=== PATIENT | female | born 1980 ===

== ENCOUNTER 2021-12-03 08:29 | Inpatient (IN) | payer SELFPAY ==
--- NOTE | 2021-12-03 08:40 | Emergency Department Report ---
ED Shortness of Breath HPI - General Chief Complaint: Dyspnea/Respdistress Stated Complaint: DIFFICULTY BREATHING Time Seen by Provider: 12/03/21 08:39 Source: patient, EMS Mode of arrival: Stretcher Limitations: No Limitations - History of Present Illness Initial Comments: Patient presents by ambulance secondary to shortness of breath. She has a histo ry of asthma. She states that yesterday and last night she started having trouble breathing. It worsened throughout the night. She called EMS this morning. EMS reports the patient was tachycardic and tachypneic when they were present. She was wheezing with rhonchi in both lung dsouza. She was given albuterol 7.5 mg by nebulizer. They report that she had improved although she was still tachypneic. They report that her lungs had cleared. Patient does have asthma. She has been admitted before. She states that she was intubated "a long time ago." Patient denies recent fevers. She has had a dry cough. She has had no known coronavirus exposure, although she is not vaccinated against COVID. She did not get a flu shot. She has not had a pneumonia shot. - Related Data Allergies Allergy/AdvReac Type Severity Reaction Status Date / Time codeine Allergy Unknown Verified 12/03/21 08:36 peach Allergy Unknown Verified 12/03/21 08:36 ED Review of Systems ROS: Stated complaint: DIFFICULTY BREATHING Other details as noted in HPI Comment: All other systems reviewed and negative Constitutional: denies: fever Eyes: denies: vision change ENT: denies: epistaxis Respiratory: see HPI Cardiovascular: denies: chest pain Endocrine: denies: unexplained weight loss Gastrointestinal: denies: abdominal pain Genitourinary: denies: dysuria Musculoskeletal: denies: back pain Skin: denies: rash Neurological: denies: headache Hematological/Lymphatic: denies: easy bruising ED Past Medical Hx - Past Medical History Previous Medical History?: Yes Hx Hypertension: Yes Hx CVA: Yes Hx Congestive Heart Failure: Yes Hx Asthma: Yes - Family History Family history: asthma, hypertension - Social History Substance Use Type: Cocaine (Per EMS) ED Physical Exam - General Limitations: No Limitations, Other (Pulse ox noted and normal) General appearance: alert, in distress (Hyperventilating) - Head Head exam: Present: atraumatic, normocephalic - Eye Eye exam: Present: normal appearance, EOMI. Absent: scleral icterus - ENT ENT exam: Present: mucous membranes dry, normal external ear exam - Neck Neck exam: Present: normal inspection. Absent: meningismus - Respiratory Respiratory exam: Present: respiratory distress (Hyperventilating), rhonchi (Bilateral) - Cardiovascular Cardiovascular Exam: Present: normal rhythm, tachycardia - GI/Abdominal GI/Abdominal exam: Present: soft. Absent: distended, tenderness - Extremities Exam Extremities exam: Present: normal capillary refill. Absent: pedal edema, calf tenderness - Back Exam Back exam: Absent: CVA tenderness (R), CVA tenderness (L) - Neurological Exam Neurological exam: Present: alert, oriented X3, CN II-XII intact. Absent: motor sensory deficit - Psychiatric Psychiatric exam: Present: normal mood, anxious - Skin Skin exam: Present: warm, dry ED Course Vital Signs 12/03/21 12/03/21 12/03/21 08:31 09:00 09:01 Temperature 98.1 F 97.6 F Pulse Rate 105 H 95 H Respiratory 20 20 34 H Rate Blood Pressure 244/169 239/159 [Left] O2 Sat by Pulse 97 98 95 Oximetry 12/03/21 11:32 Temperature Pulse Rate Respiratory 34 H Rate Blood Pressure [Left] O2 Sat by Pulse Oximetry - Reevaluation(s) Reevaluation #1: 12/03/21 08:39 EMS was met upon arrival. IV, labs, and x-ray were ordered. Old records noted. Reevaluation #2: 12/03/21 09:31 Chest x-ray was noted. Patient likely has coronavirus. Further testing was ordered. Reevaluation #3: 12/03/21 10:41 Patient was weaned down to 3 L and is still maintaining her saturations at 94%. Her blood pressure is elevated even when supine. Labetalol has been ordered. Labs are still pending. Reevaluation #4: 12/03/21 11:22 IV still cannot be established. Patient is agitated and cannot sit still. We cannot establish IV because the patient keeps moving. She had been sedated with Geodon which temporarily worked, but was not effective enough to prevent her movement. Ketamine IM has been given so that we could sedate her better, keep her still, and work on IV access. Reevaluation #5: 12/03/21 14:01 Patient was ultimately admitted. She was altered and not protecting her airway so she was electively intubated. Due to the profound hypertension with concerns for hypertensive encephalopathy, hypertensive emergency and heart failure, and requiring sedation, she had a central line placed. Bottle Capping Machine Operator was consulted - Central Line Placement Right Femoral Consent Obtained: emergent situation Time Out Performed: Yes Patient Placed on Monitor/Pulse Ox: Yes MD Prep: mask, gown, gloves Central Line Prep: Chlorhexidine scrub, sterile drapes applied Ultrasound Used for Placement: No Central Line Lumen Inserted: triple Reason for Insertion: High Alert Medication Bloods Obtained for Lab: No Central Line Position: good blood return, all ports aspirated, flus, sutured in place with 2-0 Dressing Applied: Tegaderm Post Procedure X-Ray: other (Not indicated) Patient Tolerated Procedure: well, no complications Complications: none - Intubation Time Out Performed: Yes Sedative: Versed Paralytic: Succinylcholine Laryngoscope: Andree Size: 4 ET Tube Size: 7.5 Tube Secured Depth (cm): 22 Tube Secured Location: lips Tube Placement Confirmation: visualized tube passing t, equal breath sounds bilat, no breath sounds over epi, confirmation by capnometr Patient Tolerated Procedure: well, no complications Intubation Complications: none ED Medical Decision Making - Lab Data Result diagrams: 12/03/21 09:49 12/03/21 09:49 Rhythm strip: Normal sinus rhythm without ectopy per monitor observe 10 seconds. - Radiology Data Radiology results: report reviewed - Medical Decision Making Patient presents with difficulty breathing, asthma, and cough. There was initial concern that she could have coronavirus given her x-ray findings. Over time, she declared herself to have evidence of hypertensive encephalopathy and hypertensive emergency. She was found to have pulmonary edema with altered mental status and significantly elevated blood pressures. She was given labetalol and then placed on a Cardene drip. Central line was placed. Because the patient had become altered, hypoxic, and could not protect her airway, she was electively intubated. Patient was admitted to the intensive care unit on a Cardene drip with continued management planned. Diuresis has been ordered. Critical Care Time: Yes (55 minutes exclusive of all procedures) Critical care attestation.: If time is entered above; I have spent that time in minutes in the direct care of this critically ill patient, excluding procedure time. ED Disposition Clinical Impression: Shortness of breath, Suspected COVID-19 virus infection, LILIYA (acute kidney i njury), Hypertensive encephalopathy, Hypertensive emergency Bilateral pneumonia Qualifiers: Pneumonia type: due to unspecified organism Lung location: lower lobe of lung Qualified Code(s): J18.9 - Pneumonia, unspecified organism Pulmonary edema Qualifiers: Chronicity: acute Qualified Code(s): J81.0 - Acute pulmonary edema Disposition: 09 ADMITTED INPATIENT Is pt being admited?: Yes Condition: Stable
[2021-12-03] MEDS ORDERED: SODIUM CHLORIDE 0.9% 1000 ML 1,000 ML IV ONE (08:41)
[2021-12-03] MEDS ORDERED: IPRATROPIUM/ALBUTEROL SULFATE 3 ML AMPUL.NEB IH ONE (08:42)
--- NOTE | 2021-12-03 09:16 | XRay Report ---
CHEST 1 VIEW 12/03/2021 8:11 AM INDICATION / CLINICAL INFORMATION: dyspnea. COMPARISON: None available. FINDINGS: SUPPORT DEVICES: None. HEART / MEDIASTINUM: No significant abnormality. LUNGS / PLEURA: Mild diffuse bilateral airspace disease No pneumothorax. ADDITIONAL FINDINGS: No significant additional findings. IMPRESSION: 1. Bilateral pneumonia Signer Name: Dusty Lino MD Signed: 12/03/2021 9:12 AM Workstation Name: [id number]
[2021-12-03] MEDS ORDERED: methylPREDNISolone Sod Suc 125 MG in SODIUM CHLORIDE 0.9% 100 ML IV ONE (09:30)
[2021-12-03] MEDS ORDERED: ZIPRASIDONE MESYLATE 20 MG VIAL IM ONE (09:50)
[2021-12-03 10:24] LABS: Calcium 9.3 mg/dL (8.4-10.2)
[2021-12-03 10:28] LABS: C-Reactive Protein 0.3 mg/dL (0.00-1.30)
[2021-12-03 10:32] LABS: Mean Corpuscular HGB Conc 30 % (30-34); Mean Corpuscular Volume 79 fl (79-97); Platelet Count 270 K/mm3 (140-440); Red Cell Distribution Width 18.3 % (13.2-15.2)
[2021-12-03 10:54] LABS: Hematocrit 42.6 % (30.3-42.9); Hemoglobin 12.7 gm/dl (10.1-14.3)
[2021-12-03] MEDS ORDERED: cefTRIAXone/NS 2 GM/100 ML 2 GM/100 ML BAG IV ONE (11:25)
[2021-12-03] MEDS ORDERED: SODIUM CHLORIDE 0.9% 1000 ML IV SOLN IV ONE (11:25)
[2021-12-03] MEDS ORDERED: AZITHROMYCIN/NS 500 MG/250 ML 500 MG/250 ML BAG IV ONE (12:00)
[2021-12-03] MEDS ORDERED: KETAMINE 500 MG/5 ML VIAL MDV IM ONE (12:00)
[2021-12-03 12:17] LABS: Basophils % (Manual) 0 % (0.0-1.8); Eosinophils % (Manual) 0 % (0.0-4.3); Hypochromasia 1+; Monocytes % (Manual) 0 % (0.0-7.3); Total Cells Counted 100
[2021-12-03 12:18] LABS: Platelet Estimate Consistent w Auto
[2021-12-03] MEDS ORDERED: ETOMIDATE 20 MG/10 ML INJ IV ONE ×3 (12:40→14:25)
[2021-12-03] MEDS ORDERED: SUCCINYLCHOLINE CHLORIDE 200 MG/10 ML INJ MDV ONE (12:41)
[2021-12-03] MEDS ORDERED: MIDAZOLAM 5 MG/5 ML INJ MDV IV ONE (12:41)
[2021-12-03 12:53] LABS: Amphetamine Screen,Urine Negative; Benzodiazepines Screen,Urine Negative; Cannabinoid Screen,Urine Negative; Methadone Screen,Urine Negative; Opiate Screen,Urine Negative
[2021-12-03] MEDS ORDERED: FUROSEMIDE 100 MG/10 ML INJ IV ONE (13:03)
--- NOTE | 2021-12-03 13:10 | History and Physical Report ---
History of Present Illness Chief complaint: I cant breathe History of present illness: 40 YO Female with Mild Intermittent Asthma, HTN, CVA, CHF, Cocaine Dependence presents to ED for evaluation. Patient reports "I cannot breathe". Patient states that she had experienced shortness of breath over the past several days with worsening symptoms over the same timeframe. EMS was notified and upon arrival the patient was found to be in respiratory distress. Patient was treated with nebulizer therapy and subsequently transported to [facility] for further care and evaluation of the aforementioned symptoms. The patient was seen and evaluated in the emergency department. All lab and imaging studies reviewed. The patient was found to be using accessory muscles to breathe, tripoding, and unable to speak in complete sentences. The patient was found to have a pulse oximetry of 88% on room air with exertion which is consistent with acute hypoxemic respiratory failure. Patient did not respond to bronchodilator therapy and was subsequently intubated and placed on ventilatory support. Chest x-ray revealed bilateral pneumonia complicated by sepsis, acute kidney injury, hypertensive emergency. Patient admitted to ICU and initiated on sepsis protocol, pneumonia protocol, as well as coronavirus protocol. No further history is obtainable. No reports of fever, chills, chest pain, palpitation, productive cough, skin rash, recent contact. Patient is not vaccinated against COVID-19. No prior admission for review. No medication listed at time of admission for reconciliation. Advanced care planning conducted in ED. Past History Past Medical History: heart failure, hypertension, stroke Past Surgical History: No surgical history, Other (Reviewed) Social history: single, smoking, other (Substance abuse) Family history: diabetes, hypertension Medications and Allergies Allergies Allergy/AdvReac Type Severity Reaction Status Date / Time codeine Allergy Unknown Verified 12/03/21 08:36 peach Allergy Unknown Verified 12/03/21 08:36 Review of Systems ROS unobtainable: due to endotracheal tube, due to mental status Exam - Constitutional Vitals: Temp Pulse Resp BP Pulse Ox 97.6 F 95 H 34 H 239/159 95 12/03/21 09:00 12/03/21 09:00 12/03/21 11:32 12/03/21 09:00 12/03/21 09:01 General appearance: Present: severe distress - EENT Eyes: Present: miosis ENT: hearing decreased - Neck Neck: Present: supple, normal ROM - Respiratory Respiratory effort: labored, pursed lips, accessory muscle use, stridor Respiratory: bilateral: diminished, rhonchi - Cardiovascular Rhythm: other (Tachycardia) Heart Sounds: Present: S1 & S2. Absent: rub, click - Extremities Extremities: pulses symmetrical, No edema Peripheral Pulses: abnormal (Capillary refill greater than 3.5 seconds) - Abdominal General gastrointestinal: Present: soft, non-tender, non-distended, normal bowel sounds Female genitourinary: Present: normal - Integumentary Integumentary: Present: dry, clammy, decreased turgor - Musculoskeletal Musculoskeletal: generalized weakness - Psychiatric Psychiatric: no appropriate mood/affect, no intact judgment & insight, no memory intact - Neurologic Neurologic: CNII-XII intact, no focal deficits, moves all extremities, no gait normal HEART Score - HEART Score Troponin: Troponin T 0.016 ng/mL (0.00-0.029) 12/03/21 10:47 Results - Labs CBC & Chem 7: 12/03/21 09:49 12/03/21 09:49 Labs: Abnormal lab results 12/03/21 12/03/21 12/03/21 Range/Units 09:49 09:49 09:49 WBC 13.1 H (4.5-11.0) K/mm3 RBC 5.40 H (3.65-5.03) M/mm3 MCH 24 L (28-32) pg RDW 18.3 H (13.2-15.2) % Seg Neuts % (Manual) 90.0 H (40.0-70.0) % Lymphocytes % (Manual) 5.0 L (13.4-35.0) % Seg Neutrophils # Man 11.8 H (1.8-7.7) K/mm3 Lymphocytes # (Manual) 0.7 L (1.2-5.4) K/mm3 D-Dimer (0-234) ng/mlDDU Carbon Dioxide 18 L (22-30) mmol/L BUN 29 H (7-17) mg/dL Creatinine 2.7 H (0.6-1.2) mg/dL Glucose 108 H (65-100) mg/dL Lactate Dehydrogenase 496 H (91-180) units/L 12/03/21 Range/Units 09:49 WBC (4.5-11.0) K/mm3 RBC (3.65-5.03) M/mm3 MCH (28-32) pg RDW (13.2-15.2) % Seg Neuts % (Manual) (40.0-70.0) % Lymphocytes % (Manual) (13.4-35.0) % Seg Neutrophils # Man (1.8-7.7) K/mm3 Lymphocytes # (Manual) (1.2-5.4) K/mm3 D-Dimer 1502.54 H (0-234) ng/mlDDU Carbon Dioxide (22-30) mmol/L BUN (7-17) mg/dL Creatinine (0.6-1.2) mg/dL Glucose (65-100) mg/dL Lactate Dehydrogenase (91-180) units/L Assessment and Plan - Patient Problems (1) Sepsis Current Visit: Yes Status: Acute Qualifiers: Acute respiratory failure type: with hypoxia Plan to address problem: Sepsis protocol: Chest x-ray, CBC, CMP, urinalysis, IV antibiotic therapy, IV fluid resuscitation therapy, monitor urine output every shift, strict I's/O, monitor fluid balance, maintain mean arterial pressure greater than equal 65, blood culture, serial lactic acid level. IV pressor support as clinically indicated to maintain mean arterial pressure greater than or equal to 65. The high probability of a clinically significant, sudden or life threatening deterioration of the [cardiac, pulmonary, renal, infectious disease] system(s) required my full and direct attention, intervention and personal management. The aggregate critical care time was [95] minutes. This time is in addition to time spent performing reported procedures but includes the following: [x] Data Review and interpretation [x] Patient assessment and monitoring of vital signs [x] Documentation [x] Medication orders and management (2) Acute hypoxemic respiratory failure Current Visit: Yes Status: Acute Plan to address problem: Patient independent ambulatory support. Wean vent as tolerated, sedation holiday, daily spontaneous breathing trial, daily arterial blood gas, (3) Acute kidney injury (LILIYA) with acute tubular necrosis (ATN) Current Visit: Yes Status: Acute Plan to address problem: BMP, IV fluid resuscitation therapy, repeat BMP in a.m. to monitor serum creatinine as well as GFR (4) Bilateral pneumonia Current Visit: Yes Status: Acute Qualifiers: Pneumonia type: due to unspecified organism Lung location: lower lobe of lung Qualified Code(s): J18.9 - Pneumonia, unspecified organism Plan to address problem: My protocol: Chest x-ray, CBC, CMP, supplemental oxygen, pulse oximetry, nebulizer therapy, pulmonary toilet, blood culture. (5) Hypertensive emergency Current Visit: Yes Status: Acute Plan to address problem: Nicardipine drip, supportive care. Continue medical management. (6) Hypertensive encephalopathy Current Visit: Yes Status: Acute Plan to address problem: Supportive care, neuro check, seizure precautions (7) CHF (congestive heart failure) Current Visit: Yes Status: Acute Qualifiers: Heart failure chronicity: acute on chronic Plan to address problem: Strict I/O, daily weight, afterload reduction, blood pressure control, echocardiogram ordered and pending at time of admission, BNP. (8) Cocaine dependence Current Visit: Yes Status: Acute Plan to address problem: Supportive care, blood pressure control. (9) DVT prophylaxis Current Visit: Yes Status: Acute Plan to address problem: SCD to bilateral lower extremities while in bed, prophylactic anticoagulation (10) Advance care planning Current Visit: Yes Status: Acute Plan to address problem: Disease education conducted, care plan discussed, diagnoses discussed, prognosis discussed, patient is full code. Patient mother Nora Hatch [phone] made aware of patient admission as well as patient prognosis. Patient mother acknowledges understanding and agreement with care plan, +30 minutes.
[2021-12-03] MEDS ORDERED: HYDROmorphone 1 MG/1 ML INJ IV PRN ×3 (13:12→16:50)
[2021-12-03] MEDS ORDERED: ACETAMINOPHEN 325 MG TAB PO PRN ×3 (13:12→16:50)
[2021-12-03] MEDS ORDERED: ALBUTEROL 2.5 MG/3 ML NEBU IH PRN (13:12)
[2021-12-03] MEDS ORDERED: SUCCINYLCHOLINE CHLORIDE 200 MG/10 ML INJ MDV IV ONE (13:20)
[2021-12-03] MEDS ORDERED: MIDAZOLAM 5 MG/5 ML INJ MDV IV NR ×3 (13:24→14:00)
--- NOTE | 2021-12-03 13:35 | Consultation ---
History of Present Illness Consult date: 12/03/21 Requesting physician: HERMILA HARPER Reason for consult: other (Acute Hypoxemic Respiratory Failure) History of present illness: PULMONARY/CCM CONSULT NOTE (Full dictation # [id number]) Please see dictated notes for full details Medications and Allergies Allergies Allergy/AdvReac Type Severity Reaction Status Date / Time codeine Allergy Unknown Verified 12/03/21 08:36 peach Allergy Unknown Verified 12/03/21 08:36 Active Meds: Active Medications Acetaminophen (Acetaminophen 325 Mg Tab) 650 mg PO Q6H PRN PRN Reason: Pain, Mild (1-3) Acetaminophen (Acetaminophen 325 Mg Tab) 650 mg PO Q6H PRN PRN Reason: Pain MILD(1-3)/Fever >100.5/PAYNE Albuterol (Albuterol 2.5 Mg/3 Ml Nebu) 2.5 mg IH Q3HRT PRN PRN Reason: Shortness Of Breath Ascorbic Acid (Ascorbic Acid 500 Mg Tab) 500 mg PO BID JOHN Cholecalciferol (Cholecalciferol (Vit D3) 400 Unit Tab) 1,000 unit PO QDAY JOHN Heparin Sodium (Porcine) (Heparin 5,000 Unit/1 Ml Vial) 5,000 unit SUB-Q Q12HR JOHN Hydromorphone HCl (Hydromorphone 1 Mg/1 Ml Inj) 0.25 mg IV Q4H PRN PRN Reason: Pain, Moderate (4-6) Hydromorphone HCl (Hydromorphone 1 Mg/1 Ml Inj) 0.5 mg IV Q23H PRN PRN Reason: Pain , Severe (7-10) Nicardipine/Sodium Chloride (Cardene Drip 40 Mg/200 Ml) 40 mg in 200 mls @ 25 mls/hr IV TITR JOHN; Protocol Azithromycin (Zithromax/Ns) 500 mg in 250 mls @ 250 mls/hr IV Q24H JOHN; Protocol Ceftriaxone Sodium (Rocephin/Ns 2 Gm/100 Ml) 2 gm in 100 mls @ 200 mls/hr IV Q24H JOHN; Protocol Methylprednisolone Sodium Succinate (Methylprednisolone Sod Succinate 40 Mg/1 Ml Inj) 40 mg IV Q8HR JOHN Midazolam HCl (Midazolam 5 Mg/5 Ml Inj Mdv) 3 mg IV ONCE NR Oxycodone/Acetaminophen (Oxycodone /Acetaminophen 5-325mg Tab) 1 tab PO Q16H PRN PRN Reason: Pain, Moderate (4-6) Sodium Chloride (Sodium Chloride 0.9% 10 Ml Flush Syringe) 10 ml IV BID JOHN Sodium Chloride (Sodium Chloride 0.9% 10 Ml Flush Syringe) 10 ml IV PRN PRN PRN Reason: LINE FLUSH Zinc Sulfate (Zinc Sulfate 220 Mg Cap) 220 mg PO BID JOHN Physical Examination Vital signs: Vital Signs Temp Pulse Resp BP Pulse Ox 98.1 F 105 H 20 244/169 97 12/03/21 08:31 12/03/21 08:31 12/03/21 08:31 12/03/21 08:31 12/03/21 08:31 Results - Laboratory Findings CBC and BMP: 12/03/21 09:49 12/03/21 09:49 PT/INR, D-dimer D-Dimer 1502.54 ng/mlDDU (0-234) H 12/03/21 09:49 Abnormal lab findings: Abnormal Labs 12/03/21 12/03/21 12/03/21 09:49 09:49 09:49 WBC 13.1 H RBC 5.40 H MCH 24 L RDW 18.3 H Seg Neuts % (Manual) 90.0 H Lymphocytes % (Manual) 5.0 L Seg Neutrophils # Man 11.8 H Lymphocytes # (Manual) 0.7 L D-Dimer Carbon Dioxide 18 L BUN 29 H Creatinine 2.7 H Glucose 108 H Lactate Dehydrogenase 496 H 12/03/21 09:49 WBC RBC MCH RDW Seg Neuts % (Manual) Lymphocytes % (Manual) Seg Neutrophils # Man Lymphocytes # (Manual) D-Dimer 1502.54 H Carbon Dioxide BUN Creatinine Glucose Lactate Dehydrogenase
[2021-12-03] MEDS ORDERED: AZITHROMYCIN/NS 500 MG/250 ML 500 MG/250 ML BAG IV SCH (14:00)
[2021-12-03] MEDS ORDERED: niCARdipine DRIP 40 MG/200 ML BAG IV SCH (14:00)
[2021-12-03 14:09] LABS: Cocaine Screen,Urine Positive
--- NOTE | 2021-12-03 14:30 | XRay Report ---
ABDOMEN 1 VIEW(S) INDICATION / CLINICAL INFORMATION: verify OG tube placement. COMPARISON: None available. FINDINGS: TUBES / LINES: NG tube in satisfactory position. BOWEL GAS PATTERN: No significant abnormality. ADDITIONAL FINDINGS: No significant additional findings. Signer Name: Isauro Hickey MD Signed: 12/03/2021 2:25 PM Workstation Name: [id number]
--- NOTE | 2021-12-03 14:41 | XRay Report ---
CHEST 1 VIEW 12/03/2021 1:36 PM INDICATION / CLINICAL INFORMATION: intubation. COMPARISON: One view of the chest from earlier today. FINDINGS: SUPPORT DEVICES: An ET tube has been placed with the tip located 4.2 cm above the erin. An esophago gastric tube has been placed with the most distal visualized portion projecting over the proximal sto mach. HEART / MEDIASTINUM: Stable. LUNGS / PLEURA: Generalized bilateral airspace opacities have increased. No significant pleural effus ion. No pneumothorax. ADDITIONAL FINDINGS: No significant additional findings. IMPRESSION: 1. Interval intubation with expected positioning of ET and esophagogastric tubes. 2. Increased bilateral airspace opacities, possibly representing pneumonia or edema. Signer Name: Sandor Lynch MD Signed: 12/03/2021 2:35 PM Workstation Name: [id number]
[2021-12-03] MEDS: cefTRIAXone/NS 2 GM/100 ML 2 GM/100 ML BAG IV SCH (15:00)
[2021-12-03 15:02] LABS: ABG Base Excess -4.8 mmol/L (-2.0-3.0); ABG HCO3 20.3 mmol/L (20.0-26.0); ABG Methemoglobin 0.6 % (0.0-1.5); ABG Oxygen Saturation 99.3 % (95.0-99.0); ABG PCO2 37.8 mm Hg; ABG PH 7.348 pH Units (7.350-7.450); ABG PO2 211.1 mm Hg (80.0-90.0)
[2021-12-03] MEDS: methylPREDNISolone Sod Succinate 40 MG/1 ML INJ IV SCH ×2 (16:20→23:40)
[2021-12-03] MEDS ORDERED: fentaNYL 100 MCG/2 ML INJ IV PRN (17:22)
[2021-12-03] MEDS ORDERED: fentaNYL DRIP Premix 2,000 MCG/100 ML BAG IV ONE (17:25)
[2021-12-03] MEDS: fentaNYL DRIP Premix 2,000 MCG/100 ML BAG IV SCH (17:33)
[2021-12-03] MEDS ORDERED: LIP THERAPY VASELINE TP PRN (17:48)
[2021-12-03] MEDS ORDERED: MINERAL OIL/PETROLATUM, WHITE OPHTH OINT 3.5 GM OU PRN (17:48)
[2021-12-03] MEDS: FUROSEMIDE 20 MG/2 ML INJ IV SCH (18:09)
[2021-12-03] MEDS: HEPARIN 5,000 UNIT/1 ML VIAL SUB-Q SCH (22:30)
[2021-12-03] MEDS: SENNOSIDES/DOCUSATE SODIUM 8.6/50 MG TAB FEEDTUBE SCH (23:38)
[2021-12-03] MEDS: ZINC SULFATE 220 MG CAP PO SCH (23:40)
[2021-12-03] MEDS: ASCORBIC ACID 500 MG TAB PO SCH (23:40)
--- NOTE | 2021-12-04 00:48 | Consultation ---
DATE OF CONSULTATION: 12/03/2021 PULMONARY CRITICAL CARE CONSULT NOTE CONSULTING PHYSICIAN: Dr. Motley, Emergency Room doctor. REASON FOR CONSULTATION: Acute hypoxemic respiratory failure, on mechanical ventilatory support. CHIEF COMPLAINT AND HISTORY OF PRESENT ILLNESS: As follows, the patient is a now 40-year-old female with past medical history significant amongst other things both for a diagnosis of asthma, but also for a reported history of polysubstance abuse, came into the Emergency Room complaining of shortness of breath that started the night before. It worsened throughout the night. She called [facility] this morning. They found her tachycardic and tachypneic when she came into the Emergency Room. She continued to have increased shortness of breath. Despite medications, the patient became very, very agitated. It seems like at that point, they were unable to get an IV access in her, unable to control her airway, unable to control agitation and she was ultimately intubated. Post-intubation, we are asked to assist with management. When I stopped by to see her, she was resting in bed, but no sooner she was on a propofol drip that actually going at about 15 mcg per kilogram per minute and all of a sudden she got up in bed and became very, very agitated. This was controlled with 100 mg fentanyl push. I do not have any history of vomiting or overt aspiration. Again, there is a history of polysubstance abuse. With regards to her tobacco use/abuse history, there is a history of tobacco abuse according to the records and history of cocaine use. That is really as much of the history of presentation as I have. PAST MEDICAL HISTORY: Heart failure, hypertension, cerebrovascular accident, history of intermittent asthma, unclear, I think she says mild and a history of hypertension and cocaine dependence. PAST SURGICAL HISTORY: Unknown. MEDICATIONS: She was on at the time I stopped by to see her according to the medication administration record included the following: Tylenol 650 mg p.o. q. 6 hours p.r.n. mild pain or fevers, albuterol 2.5 mg nebulized q. 3 hours p.r.n. shortness of breath, vitamin C 500 mg p.o. b.i.d., azithromycin 500 mg IV daily, Rocephin 2 grams IV daily, vitamin D3 1000 units p.o. daily, fentanyl drip has just been ordered, heparin 5000 units subcutaneously q. 12 hours, Dilaudid 0.25 mg IV q. 4 hours p.r.n. moderate pain and 0.5 mg IV q. 23 hours p.r.n. severe pain, Solu-Medrol 40 mg IV q. 8 hours, Versed 3 mg one-time dose. She is on nicardipine drip at 5 mg per hour. Percocet 5/325 mg 1 tablet p.o. q. 16 hours p.r.n. moderate pain, zinc sulfate 220 mg p.o. b.i.d. ALLERGIES: CODEINE and __, nature of this allergy is unknown. DIET: Thin lady, acute weight loss or gain history is unknown. FAMILY AND SOCIAL HISTORY: Apparently lives in the community. There is a history of tobacco abuse, cocaine abuse, alcohol abuse history is unknown. FAMILY HISTORY: There is a family history of diabetes and hypertension. REVIEW OF SYSTEMS: Unobtainable secondary to the patient's medical and mental condition. Since she has been here, no gross hematochezia or melena, no gross hematuria, no hematemesis, no bloody tracheal secretions, no witnessed seizures. Review of systems otherwise unobtainable or as in body of history above. PHYSICAL EXAMINATION: VITAL SIGNS: At presentation, she was afebrile, temperature 98.1 degrees Fahrenheit, pulse of 105, respiratory rate of 34, blood pressure 244/169, O2 sats were 97%, inspired oxygen concentration at that time was not recorded. When I stopped by to see her, her O2 sats were 99% that was on the assist control mode of ventilation, PRVC, AC, actually tidal volume 450, rate of 20 and PEEP of 6 and 60% FiO2. GENERAL: She is thin looking female. Normocephalic, atraumatic on the mechanical ventilator with a moderately increased respiratory effort at the time I saw her. HEAD, EYES, EARS, NOSE AND THROAT: Anicteric. No conjunctival erythema. Oropharynx was moist. ET tube was taped at the lips 24 cm. NECK: No gross jugular venous distention, no thyromegaly. Grossly, there were no palpable lymph nodes in the supraclavicular or submandibular lymph node chains. LUNGS: Auscultation of both lung dsouza significant for diminished bilateral breath sound, but also bilateral rales, no wheezing. HEART: Sounds 1 and 2 are heard. There were regular rate and rhythm at the time of my evaluation without overt rubs or murmurs. ABDOMEN: Soft, flat, bowel sounds are positive, nontender, no palpable hepatosplenomegaly. EXTREMITIES: Without overt digital clubbing or cyanosis, no pedal edema. Pedal pulses are 2+ bilaterally. NEUROLOGIC: Pupils are equal, round, about 3 mm, reactive to light. Extraocular muscle movements were intact. She had spontaneous movements to all extremities. SKIN: Normal turgor in the areas examined without overt cellulitis or rash. Please see the wound care nurses' notes for full description of her skin. PSYCHIATRIC: Mood and affect could not be assessed. She was sedated. LABORATORY DATA: From my review are as follows: Admission white cell count 13,100, hemoglobin 12.7, hematocrit 42.6, platelet count 270. No band forms on the manual differential. D-dimer was up at 1502. Arterial blood gas showed a pH of 7.35, pCO2 of 38, pO2 of 211 on 100% FiO2 and I believe the above-mentioned vent settings. Serum sodium 140, potassium 4.7, chloride 106, bicarbonate 18, BUN 29, creatinine 2.7, glucose 108. Lactic acid within normal limits. LDH is 496. BNP elevated at 4497. CRP, procalcitonin was unremarkable. Urine drug screen is presumptive positive for cocaine. COVID-19 PCR test is negative. Two sets of blood cultures, no growth to date. Chest x-ray really is more compatible with flash pulmonary edema. There is gross cardiomegaly, hilar predominant bilateral infiltrates. No significant pleural effusions, no gross pneumothorax. ET tube is in good position. No gross bony fractures. X-ray of the abdomen shows a feeding tube in good position. ASSESSMENT: 1. Acute hypoxemic respiratory failure, on mechanical ventilatory support. 2. Hypertensive emergency with 3 flash pulmonary edema. 3. History of polysubstance abuse. 4. History of hypertension. 5. History of congestive heart failure with an acute exacerbation. 6. History of a cerebrovascular accident. 7. History of asthma. 8. Leukocytosis. 9. Mild metabolic acidosis. 10. Oropharyngeal dysphagia. 11. Cocaine abuse. PLAN: We will keep her on full mechanical ventilatory support in the short term. In light of her polysubstance abuse history, I will also be started her on a fentanyl drip to make sure that there is not any pain or opiate withdrawal issues state acutely. She will continue on the Cardene drip. We will target a systolic blood pressure of about 160 mmHg in the short term, acute coronary syndrome workup might be in order. Serum troponin is within normal limits. A 2D echo will be of benefit. I will start her on diuresis with Lasix 20 mg IV b.i.d. about 4 doses and follow her electrolytes as well as BUN and creatinine. She will remain on full mechanical ventilatory support in the short term, ventilator-associated pneumonia bundle has been introduced. Bronchodilators, pulmonary hygiene will be per the respiratory therapist. Oxygen will be weaned to keep sats greater than or equal to about 90%. We will continue empiric community-acquired pneumonia therapy, deescalate quickly based on the results of clinical and microbiologic data. We will follow the blood cultures. She is appropriately on DVT prophylaxis. I will be putting her on GI prophylaxis. Flu and pneumonia vaccination will be addressed per protocol. Thank you very much for the consult. We will follow along and make further recommendations as picture progresses/becomes clearer. Of note, glycemic control will be for target blood glucose of 140-180 mg/dL while critically ill. At this time, I spent about 35-40 minutes of critical care time without overlap and excluding any procedural time that may be necessary. TID: [id number] RECEIPT: [id number] DERIC/MAHAMED
--- NOTE | 2021-12-04 00:54 | Cat Scan Report ---
CT chest wo con INDICATION / CLINICAL INFORMATION: Respiratory Failure. TECHNIQUE: Axial CT imaging of the chest was obtained without contrast. Coronal and sagittal reformatted imaging obtained and reviewed. All CT scans at this location are performed using CT dose reduction for ALAR A by means of automated exposure control. COMPARISON: Chest radiograph earlier today FINDINGS: CT chest without contrast demonstrates presence of endotracheal tube with the tip terminating above t he level the erin. NG tube is also present with tip terminating in the midportion of the stomach. For noncontrast exam, the mediastinum is grossly unremarkable. Thoracic aorta has normal caliber. Hea rt size is mildly enlarged. No pericardial effusion. Small pulmonary opacities are present throughout both upper lobes with large areas of parenchymal con solidation in both lower lobes. Trace bilateral pleural effusions are present. Imaging of the upper abdomen is grossly negative. No acute osseous abnormality noted. Very mild scoliosis of the thoracic spine is present. IMPRESSION: 1. Small pulmonary opacities are present bilaterally with larger areas of consolidation noted in both lower lobes. Trace bilateral pleural effusions are present. The appearance is most likely due to int erstitial pulmonary edema, especially given the presence of the small pleural effusions. Atypical pne umonia could also have this appearance, however. 2. Mild cardiomegaly. Signer Name: Rae Ojeda MD Signed: 12/04/2021 12:50 AM Workstation Name: [id number]
[2021-12-04] MEDS: fentaNYL DRIP Premix 2,000 MCG/100 ML BAG IV SCH (02:04)
--- NOTE | 2021-12-04 03:44 | XRay Report ---
CHEST 1 VIEW INDICATION / CLINICAL INFORMATION: follow up respiratory failure. COMPARISON: 12/03/2021 at 1336 hours FINDINGS: SUPPORT DEVICES: Stable positioning of ET tube and NG tube. HEART / MEDIASTINUM: Stable cardiomegaly. LUNGS / PLEURA: Previously noted bilateral pulmonary opacities have significantly improved. No pneumo thorax. ADDITIONAL FINDINGS: No significant additional findings. IMPRESSION: 1. Improving pulmonary edema. Signer Name: Rae Ojeda MD Signed: 12/04/2021 3:40 AM Workstation Name: [id number]
[2021-12-04 04:48] LABS: Hematocrit 35.3 % (30.3-42.9); Hemoglobin 10.8 gm/dl (10.1-14.3); Mean Corpuscular HGB Conc 31 % (30-34); Mean Corpuscular Volume 79 fl (79-97); Platelet Count 208 K/mm3 (140-440); Red Blood Count 4.45 M/mm3 (3.65-5.03); Red Cell Distribution Width 18.6 % (13.2-15.2)
[2021-12-04 05:02] LABS: Albumin 3.4 g/dL (3.9-5); Calcium 8.4 mg/dL (8.4-10.2)
[2021-12-04] MEDS: FUROSEMIDE 20 MG/2 ML INJ IV SCH (05:13)
[2021-12-04] MEDS: methylPREDNISolone Sod Succinate 40 MG/1 ML INJ IV SCH ×3 (05:14→22:00)
[2021-12-04 06:13] LABS: Basophils % (Manual) 0 % (0.0-1.8); Eosinophils % (Manual) 0 % (0.0-4.3); Monocytes % (Manual) 0 % (0.0-7.3); Total Cells Counted 100
[2021-12-04 06:14] LABS: Hypochromasia 1+
[2021-12-04 06:16] LABS: Anisocytosis 1+; Platelet Estimate Consistent w Auto
--- NOTE | 2021-12-04 09:35 | Consultation ---
History of Present Illness - Reason for Consult Consult date: 12/04/21 acute renal failure, accelerated hypertension Requesting physician: LUBA TROTTER - History of Present Illness 40 YO Female with Mild Intermittent Asthma, HTN, CVA, CHF, Cocaine Dependence presents to ED for evaluation. Patient reports "I cannot breathe". Patient states that she had experienced shortness of breath over the past several days with worsening symptoms over the same timeframe. EMS was notified and upon arrival the patient was found to be in respiratory distress. Patient was tr eated with nebulizer therapy and subsequently transported to [facility] for further care and evaluation of the aforementioned symptoms. The patient was seen and evaluated in the emergency department. All lab and imaging studies reviewed. The patient was found to be using accessory muscles to breathe, tripoding, and unable to speak in complete sentences. The patient was found to have a pulse oximetry of 88% on room air with exertion which is consistent with acute hypoxemic respiratory failure. Patient did not respond to bronchodilator therapy and was subsequently intubated and placed on ventilatory support. Chest x-ray revealed bilateral pneumonia complicated by sepsis, acute kidney injury, hypertensive emergency. Patient admitted to ICU and initiated on sepsis protocol, pneumonia protocol, as well as coronavirus protocol. No further history is obtainable. No reports of fever, chills, chest pain, palpitation, productive cough, skin rash, recent contact. Patient is not vaccinated against COVID-19. No prior admission for review. No medication listed at time of admission for reconciliation. Advanced care planning conducted in ED. Past History Past Medical History: heart failure, hypertension, stroke Past Surgical History: No surgical history, Other (Reviewed) Social history: single, smoking, other (Substance abuse) Family history: diabetes, hypertension Review of Systems ROS unobtainable: due to endotracheal tube, due to mental status Past History Past Medical History: heart failure, hypertension, stroke Past Surgical History: No surgical history, Other (Reviewed) Social history: single, smoking, other (Substance abuse) Family history: diabetes, hypertension Medications and Allergies Allergies Allergy/AdvReac Type Severity Reaction Status Date / Time codeine Allergy Unknown Verified 12/03/21 08:36 peach Allergy Unknown Verified 12/03/21 08:36 Active Meds: Active Medications Acetaminophen (Acetaminophen 325 Mg Tab) 650 mg PO Q6H PRN PRN Reason: Pain, Mild (1-3) Albuterol (Albuterol 2.5 Mg/3 Ml Nebu) 2.5 mg IH Q3HRT PRN PRN Reason: Shortness Of Breath Ascorbic Acid (Ascorbic Acid 500 Mg Tab) 500 mg PO BID [facility] Last Admin: 12/03/21 23:40 Dose: 500 mg Cholecalciferol (Cholecalciferol (Vit D3) 400 Unit Tab) 1,000 unit PO QDAY [facility] Famotidine (Famotidine 20 Mg/2 Ml Inj) 20 mg IV QDAY [facility] Fentanyl (Fentanyl 100 Mcg/2 Ml Inj) 50 mcg IV Q10MIN PRN PRN Reason: ANALGESIA Furosemide (Furosemide 20 Mg/2 Ml Inj) 20 mg IV Q12H [facility] Stop: 12/05/21 06:01 Last Admin: 12/04/21 05:13 Dose: 20 mg Heparin Sodium (Porcine) (Heparin 5,000 Unit/1 Ml Vial) 5,000 unit SUB-Q Q12HR [facility] Last Admin: 12/03/21 22:30 Dose: 5,000 unit Hydromorphone HCl (Hydromorphone 1 Mg/1 Ml Inj) 0.25 mg IV Q4H PRN PRN Reason: Pain, Moderate (4-6) Hydromorphone HCl (Hydromorphone 1 Mg/1 Ml Inj) 0.5 mg IV Q23H PRN PRN Reason: Pain , Severe (7-10) Hydromorphone HCl (Hydromorphone 1 Mg/1 Ml Inj) 0.25 mg IV Q4H PRN PRN Reason: Pain, Moderate (4-6) Hydrophilic Ointment (Lip Therapy Vaseline) 1 applic TP Q2HR PRN PRN Reason: Dry Lips Nicardipine/Sodium Chloride (Cardene Drip 40 Mg/200 Ml) 40 mg in 200 mls @ 25 mls/hr IV TITR [facility]; Protocol Last Titration: 12/03/21 22:15 Dose: Infused Azithromycin (Zithromax/Ns) 500 mg in 250 mls @ 250 mls/hr IV Q24H [facility]; Protocol Last Admin: 12/03/21 15:30 Dose: 250 mls/hr Ceftriaxone Sodium (Rocephin/Ns 2 Gm/100 Ml) 2 gm in 100 mls @ 200 mls/hr IV Q24H [facility]; Protocol Last Admin: 12/03/21 15:00 Dose: 200 mls/hr Fentanyl Citrate (Fentanyl Drip Premix) 2,000 mcg in 100 mls @ 2.495 mls/hr IV TITR [facility]; Protocol Last Admin: 12/04/21 02:04 Dose: 3 mcg/kg/hr, 7.484 mls/hr Propofol (Diprivan 10 Mg/Ml) 1,000 mg in 100 mls @ 1.497 mls/hr IV TITR [facility]; Protocol Last Titration: 12/04/21 03:28 Dose: 20 mcg/kg/min, 5.987 mls/hr Methylprednisolone Sodium Succinate (Methylprednisolone Sod Succinate 40 Mg/1 Ml Inj) 40 mg IV Q8HR [facility] Last Admin: 12/04/21 05:14 Dose: 40 mg Multi-Ingred Cream/Lotion/Oil/Oint (Mineral Oil/Petrolatum, White Ophth Oint 3.5 Gm) 1 applic OU Q4HR PRN PRN Reason: Dry Eye(s) Oxycodone/Acetaminophen (Oxycodone /Acetaminophen 5-325mg Tab) 1 tab PO Q16H PRN PRN Reason: Pain, Moderate (4-6) Senna/Docusate Sodium (Sennosides/Docusate Sodium 8.6/50 Mg Tab) 1 tab FEEDTUBE BID [facility] Last Admin: 12/03/21 23:38 Dose: 1 tab Sodium Chloride (Sodium Chloride 0.9% 10 Ml Flush Syringe) 10 ml IV BID [facility] Last Admin: 12/03/21 23:39 Dose: 10 ml Sodium Chloride (Sodium Chloride 0.9% 10 Ml Flush Syringe) 10 ml IV PRN PRN PRN Reason: LINE FLUSH Zinc Sulfate (Zinc Sulfate 220 Mg Cap) 220 mg PO BID [facility] Last Admin: 12/03/21 23:40 Dose: 220 mg Exam - Vital Signs Vital signs: Vital Signs Temp Pulse Resp BP Pulse Ox 98.1 F 105 H 20 244/169 97 12/03/21 08:31 12/03/21 08:31 12/03/21 08:31 12/03/21 08:31 12/03/21 08:31 - Physical Exam Narrative exam: General appearance: Present: severe distress - EENT Eyes: Present: miosis ENT: hearing decreased - Neck Neck: Present: supple, normal ROM - Respiratory Respiratory effort: labored, pursed lips, accessory muscle use, stridor Respiratory: bilateral: diminished, rhonchi - Cardiovascular Rhythm: other (Tachycardia) Heart Sounds: Present: S1 & S2. Absent: rub, click - Extremities Extremities: pulses symmetrical, No edema Peripheral Pulses: abnormal (Capillary refill greater than 3.5 seconds) - Abdominal General gastrointestinal: Present: soft, non-tender, non-distended, normal bowel sounds Female genitourinary: Present: normal - Integumentary Integumentary: Present: dry, clammy, decreased turgor - Musculoskeletal Musculoskeletal: generalized weakness - Psychiatric Psychiatric: no appropriate mood/affect, no intact judgment & insight, no memory intact - Neurologic Neurologic: CNII-XII intact, no focal deficits, moves all extremities, no gait normal Results - Lab Results 12/04/21 04:00 12/04/21 04:00 Most recent lab results ABG pH 7.289 (7.320-7.450) L 12/04/21 03:32 ABG pCO2 37.8 mm Hg 12/03/21 14:55 ABG pO2 211.1 mm Hg (80.0-90.0) H 12/03/21 14:55 ABG HCO3 20.3 mmol/L (20.0-26.0) 12/03/21 14:55 ABG O2 Saturation 96.9 (0-100) 12/04/21 03:32 Calcium 8.4 mg/dL (8.4-10.2) 12/04/21 04:00 Assessment and Plan Impression: * LILIYA om unknown stage of CKD * HTN urgency * cocaine abuse * AMS * PNA * Pulm edema * Acute hypoxic resp failure * Asthma Plan: * follow up renal us and urine lytes * strict i/os daily lytes * cxr and ct chest noted, reduce diuresis with incr creatinine and follow up * avoid nephrotoxins * no indication for [employer] today * bp control * stress compliance with medical regimen * 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
[2021-12-04] MEDS ORDERED: CHOLECALCIFEROL (VIT D3) 400 UNIT TAB PO SCH (10:00)
[2021-12-04] MEDS: SENNOSIDES/DOCUSATE SODIUM 8.6/50 MG TAB FEEDTUBE SCH ×2 (10:37→22:00)
[2021-12-04] MEDS: HEPARIN 5,000 UNIT/1 ML VIAL SUB-Q SCH ×2 (10:37→22:00)
[2021-12-04] MEDS: ASCORBIC ACID 500 MG TAB PO SCH ×2 (10:37→22:00)
[2021-12-04] MEDS: ZINC SULFATE 220 MG CAP PO SCH ×2 (10:37→22:00)
[2021-12-04] MEDS: FAMOTIDINE 20 MG/2 ML INJ IV SCH (10:38)
[2021-12-04] MEDS: CHOLECALCIFEROL (VIT D3) 1000 UNIT (25 mcg) TAB PO SCH (10:45)
--- NOTE | 2021-12-04 10:55 | Progress Note ---
<ORIANA DOMINGO - Last Filed: 12/04/21 17:43> Assessment and Plan Assessment and plan: This is a 40-year-old female with past medical history of Asthma, HTN, CVA, and cocaine dependence admitted for acute hypoxemic respiratory failure secondary to bilateral pneumonia versus flash pulmonary edema and CHF exacerbation. Hospital Course to Date: 12/04: Intubated and sedated but arousable with mild stimuli. Plan for possible SAT and SBT today. Patient is off cardene gtt this am, continue PRN anti hypertensive for SBP greater than 160. This am CXR noted pulmonary edema improved post IV lasix, Cardiology consulted for CHF, unclear if patient has a history of CHF, 2D echo is pending. Will also hold off on IV Antibiotics for now, COVID PCR came back negative, patient remains afebrile, procal and CRP are normal. Renal function worsen, patient is also on IV lasix, Nephrology is following. Assessment and Plan #Acute Hypoxemic Respiratory Failure 12/02 #Bilateral Pneumonia vs Flash Pulmonary Edema #H/o Asthma - Intubated in the ED on 12/03 - Vent Setting: PRVC-30%,6,20,450 - This am ABG noted - CXR with improved pulmonary edema - CCM consulted, appreciate recommendations - VAP bundle addressed - Aspiration precaution HOB above 30 - Daily SBT and SAT trials as tolerated - Daily ABG and CXR - Continue SPO2 monitoring for SPO2 goal above 92% #Acute Kidney Injury(LILIYA) - Patient baseline is unknown - Most likely intrinsic renal vascular disease in the setting of uncontrolled high blood pressure - Nephrology on consult, appreciated recommendation - Strict intake and output - Avoid nephrotoxic medications; Renally dose medications - Monitor and replace electrolytes as needed - Trend BMP #CHF (congestive heart failure) #Hypertensive Emergency-resolved - Unclear if patient has a history of HF - ProBNP greater than 29K on admit and hypertensive - s/p cardene gtt - 2D Echo pending - Cardiology consulted - Strict I/O and daily weight - Continue blood pressure monitor per protocol - PRN Antihypertensive for SBP greater than 160 #Bilateral Pneumonia - Initial CXR with possible bilateral vs pulminary edema - Repeat CXR with improve pulmonary edema - Patient remains on low vent setting and afebrile - Procal and CRP normal - Blood culture and sputum culture pending - IV antibitiotics on hold for now - Continue to F/U on cultures - Daily CBC monitoring #Acute Encephalopathy #Cocaine dependence - UDS + cocaine - Continue sedation for RASS goal 0 to -2 - Avoid delirium - PRN analgesia for CPOT greater than 3 - Maintenance of sleep-wake cycle #GI/DVT prophylaxis - Continue PPI- Pepcid - Continue AC- Heparin SubQ - SCD to bilateral lower extremities while in bed The high probability of a clinically significant, sudden or life threatening deterioration of the [multiple] system(s) required my full and direct attention, intervention and personal management. The aggregate critical care time was [60] minutes. This time is in addition to time spent performing reported procedures but includes the following: [x] Data Review and interpretation [x] Patient assessment and monitoring of vital signs [x] Documentation [x] Medication orders and management Disposition Plan: ICU Total Time Spent with Patient (Minutes): 60 History Interval history: Patient seen and examined at the bedside. Intubated and sedated, RASS -2, arousable to mild stimuli. Per RN marlin reneation attempted this am, patient followed commands however patient get very restless and agitated, sedation resumed. Patient is also off cardene gtt this am, BP stable Hospitalist Physical - Constitutional Vitals: Temp Pulse Resp BP Pulse Ox 99.1 F 61 20 143/84 97 12/04/21 07:20 12/04/21 08:49 12/04/21 08:49 12/04/21 07:40 12/04/21 08:49 General appearance: Present: no acute distress, other (Intubated and sedated) - EENT Eyes: Present: PERRL - Respiratory Respiratory effort: normal Respiratory: bilateral: diminished - Cardiovascular Rhythm: regular Heart Sounds: Present: S1 & S2 - Extremities Extremities: no ischemia, pulses intact, pulses symmetrical Peripheral Pulses: within normal limits - Abdominal General gastrointestinal: soft, non-distended, normal bowel sounds - Integumentary Integumentary: Present: warm, dry - Psychiatric Psychiatric: other (Intubated and sedated) - Neurologic Neurologic: other (Intubated and sedated) - Allied Health Allied health notes reviewed: nursing HEART Score - HEART Score Troponin: Troponin T 0.016 ng/mL (0.00-0.029) 12/03/21 10:47 Results - Labs CBC & Chem 7: 12/04/21 04:00 12/04/21 04:00 Labs: Laboratory Last Values WBC 13.3 K/mm3 (4.5-11.0) H 12/04/21 04:00 RBC 4.45 M/mm3 (3.65-5.03) 12/04/21 04:00 Hgb 10.8 gm/dl (10.1-14.3) 12/04/21 04:00 Hct 35.3 % (30.3-42.9) D 12/04/21 04:00 MCV 79 fl (79-97) 12/04/21 04:00 MCH 24 pg (28-32) L 12/04/21 04:00 MCHC 31 % (30-34) 12/04/21 04:00 RDW 18.6 % (13.2-15.2) H 12/04/21 04:00 Plt Count 208 K/mm3 (140-440) 12/04/21 04:00 Add Manual Diff Complete 12/04/21 04:00 Total Counted 100 12/04/21 04:00 Seg Neutrophils % [employer] Instrument Repairer 12/04/21 04:00 Seg Neuts % (Manual) 98.0 % (40.0-70.0) H 12/04/21 04:00 Band Neutrophils % 0 % 12/04/21 04:00 Lymphocytes % (Manual) 2.0 % (13.4-35.0) L 12/04/21 04:00 Reactive Lymphs % (Man) 0 % 12/04/21 04:00 Monocytes % (Manual) 0 % (0.0-7.3) 12/04/21 04:00 Eosinophils % (Manual) 0 % (0.0-4.3) 12/04/21 04:00 Basophils % (Manual) 0 % (0.0-1.8) 12/04/21 04:00 Metamyelocytes % 0 % 12/04/21 04:00 Myelocytes % 0 % 12/04/21 04:00 Promyelocytes % 0 % 12/04/21 04:00 Blast Cells % 0 % 12/04/21 04:00 Nucleated RBC % Not Reportable 12/04/21 04:00 Seg Neutrophils # Man 13.0 K/mm3 (1.8-7.7) H 12/04/21 04:00 Band Neutrophils # 0.0 K/mm3 12/04/21 04:00 Lymphocytes # (Manual) 0.3 K/mm3 (1.2-5.4) L 12/04/21 04:00 Abs React Lymphs (Man) 0.0 K/mm3 12/04/21 04:00 Monocytes # (Manual) 0.0 K/mm3 (0.0-0.8) 12/04/21 04:00 Eosinophils # (Manual) 0.0 K/mm3 (0.0-0.4) 12/04/21 04:00 Basophils # (Manual) 0.0 K/mm3 (0.0-0.1) 12/04/21 04:00 Metamyelocytes # 0.0 K/mm3 12/04/21 04:00 Myelocytes # 0.0 K/mm3 12/04/21 04:00 Promyelocytes # 0.0 K/mm3 12/04/21 04:00 Blast Cells # 0.0 K/mm3 12/04/21 04:00 WBC Morphology Not Reportable 12/04/21 04:00 Hypersegmented Neuts Not Reportable 12/04/21 04:00 Hyposegmented Neuts Not Reportable 12/04/21 04:00 Hypogranular Neuts Not Reportable 12/04/21 04:00 Smudge Cells Not Reportable 12/04/21 04:00 Toxic Granulation Not Reportable 12/04/21 04:00 Toxic Vacuolation Not Reportable 12/04/21 04:00 Dohle Bodies Not Reportable 12/04/21 04:00 Pelger-Huet Anomaly Not Reportable 12/04/21 04:00 Gaurav Rods Not Reportable 12/04/21 04:00 Platelet Estimate Consistent w auto 12/04/21 04:00 Clumped Platelets Not Reportable 12/04/21 04:00 Plt Clumps, EDTA Not Reportable 12/04/21 04:00 Large Platelets Not Reportable 12/04/21 04:00 Giant Platelets Not Reportable 12/04/21 04:00 Platelet Satelliting Not Reportable 12/04/21 04:00 Plt Morphology Comment Not Reportable 12/04/21 04:00 RBC Morphology Not Reportable 12/04/21 04:00 Dimorphic RBCs Not Reportable 12/04/21 04:00 Polychromasia Not Reportable 12/04/21 04:00 Hypochromasia 1+ 12/04/21 04:00 Poikilocytosis Not Reportable 12/04/21 04:00 Anisocytosis 1+ 12/04/21 04:00 Microcytosis Not Reportable 12/04/21 04:00 Macrocytosis Not Reportable 12/04/21 04:00 Spherocytes Not Reportable 12/04/21 04:00 Pappenheimer Bodies Not Reportable 12/04/21 04:00 Sickle Cells Not Reportable 12/04/21 04:00 Target Cells Not Reportable 12/04/21 04:00 Tear Drop Cells Not Reportable 12/04/21 04:00 Ovalocytes Not Reportable 12/04/21 04:00 Helmet Cells Not Reportable 12/04/21 04:00 Castillo-Bowler Bodies Not Reportable 12/04/21 04:00 [place] Rings Not Reportable 12/04/21 04:00 [place] Cells Not Reportable 12/04/21 04:00 Bite Cells Not Reportable 12/04/21 04:00 Crenated Cell Not Reportable 12/04/21 04:00 Elliptocytes Not Reportable 12/04/21 04:00 Acanthocytes (Spur) Not Reportable 12/04/21 04:00 Rouleaux Not Reportable 12/04/21 04:00 Hemoglobin C Crystals Not Reportable 12/04/21 04:00 Schistocytes Not Reportable 12/04/21 04:00 Malaria parasites Not Reportable 12/04/21 04:00 Richard Bodies Not Reportable 12/04/21 04:00 Hem Pathologist Commnt No 12/04/21 04:00 D-Dimer 1502.54 ng/mlDDU (0-234) H 12/03/21 09:49 ABG pH 7.289 (7.320-7.450) L 12/04/21 03:32 POC ABG pCO2 38.6 mmHg (32.0-48.0) 12/04/21 03:32 ABG pCO2 37.8 mm Hg 12/03/21 14:55 POC ABG pO2 93.7 mmHg (83-108) 12/04/21 03:32 ABG pO2 211.1 mm Hg (80.0-90.0) H 12/03/21 14:55 POC ABG HCO3 18.1 12/04/21 03:32 ABG HCO3 20.3 mmol/L (20.0-26.0) 12/03/21 14:55 ABG O2 Saturation 96.9 (0-100) 12/04/21 03:32 ABG O2 Content 16.6 (0.0-44) 12/03/21 14:55 POC ABG Base Excess -7.9 12/04/21 03:32 ABG Base Excess -4.8 mmol/L (-2.0-3.0) L 12/03/21 14:55 ABG Hemoglobin 12.2 (12.0-17.5) 12/04/21 03:32 ABG Oxyhemoglobin 95.8 (94-98) 12/04/21 03:32 ABG Carboxyhemoglobin 2.1 % (0.0-5.0) 12/03/21 14:55 ABG Methemoglobin 0 (0.0-1.5) 12/04/21 03:32 Oxyhemoglobin 96.6 % (95.0-99.0) 12/03/21 14:55 Carboxyhemoglobin 1.1 (0.5-1.5) 12/04/21 03:32 FiO2 100 % 12/03/21 14:55 FiO2 % 40.0 12/04/21 03:32 Sodium 139 mmol/L (137-145) 12/04/21 04:00 Potassium 4.4 mmol/L (3.6-5.0) 12/04/21 04:00 Chloride 107.4 mmol/L (98-107) H 12/04/21 04:00 Carbon Dioxide 20 mmol/L (22-30) L 12/04/21 04:00 Anion Gap 16 mmol/L 12/04/21 04:00 BUN 34 mg/dL (7-17) H 12/04/21 04:00 Creatinine 3.0 mg/dL (0.6-1.2) H 12/04/21 04:00 Estimated GFR 17 ml/min 12/04/21 04:00 BUN/Creatinine Ratio 11 % 12/04/21 04:00 Glucose 119 mg/dL (65-100) H 12/04/21 04:00 Lactic Acid 1.10 mmol/L (0.7-2.0) 12/03/21 17:50 Calcium 8.4 mg/dL (8.4-10.2) 12/04/21 04:00 Ferritin 171.6 ng/mL (10.0-200.0) 12/03/21 09:49 Total Bilirubin 0.60 mg/dL (0.1-1.2) 12/04/21 04:00 AST 16 units/L (5-40) 12/04/21 04:00 ALT 13 units/L (7-56) 12/04/21 04:00 Alkaline Phosphatase 87 units/L (35-129) 12/04/21 04:00 Lactate Dehydrogenase 496 units/L (91-180) H 12/03/21 09:49 Troponin T 0.016 ng/mL (0.00-0.029) 12/03/21 10:47 C-Reactive Protein 0.30 mg/dL (0.00-1.30) 12/03/21 09:49 NT-Pro-B Natriuret Pep 85571 pg/mL (0-450) H 12/03/21 13:26 Total Protein 6.6 g/dL (6.3-8.2) 12/04/21 04:00 Albumin 3.4 g/dL (3.9-5) L 12/04/21 04:00 Albumin/Globulin Ratio 1.1 % 12/04/21 04:00 Procalcitonin 0.06 ng/mL (<0.15) 12/03/21 09:49 Urine Opiates Screen Negative 12/03/21 Unknown Urine Methadone Screen Negative 12/03/21 Unknown Ur Barbiturates Screen Negative 12/03/21 Unknown Ur Phencyclidine Scrn Negative 12/03/21 Unknown Ur Amphetamines Screen Negative 12/03/21 Unknown U Benzodiazepines Scrn Negative 12/03/21 Unknown Urine Cocaine Screen Positive 12/03/21 Unknown U Marijuana (THC) Screen Negative 12/03/21 Unknown Drugs of Abuse Note Disclamer 12/03/21 Unknown SARS-CoV-2 (PCR) Negative (Negative) 12/03/21 10:29 Blood Type A NEGATIVE 12/03/21 17:50 Antibody Screen Negative 12/03/21 17:50 Microbiology: Microbiology 12/03/21 13:26 Peripheral/Venous Blood Culture - Preliminary Culture in Progress 12/03/21 13:26 Peripheral/Venous Blood Culture - Preliminary Culture in Progress Sen/IV: Voiding Method Indwelling Catheter Active Medications - Current Medications Current Medications: Generic Name Dose Route Start Last Admin Trade Name Freq PRN Reason Stop Dose Admin Acetaminophen 650 mg 12/03/21 16:50 Acetaminophen 325 Mg Tab PO Q6H PRN Pain, Mild (1-3) Albuterol 2.5 mg 12/03/21 13:12 Albuterol 2.5 Mg/3 Ml Nebu IH Q3HRT PRN Shortness Of Breath Ascorbic Acid 500 mg 12/03/21 22:00 12/04/21 10:37 Ascorbic Acid 500 Mg Tab PO 500 mg BID JOHN Administration Cholecalciferol 1,000 unit 12/04/21 11:00 12/04/21 10:45 Cholecalciferol (Vit D3) 1000 Unit (25 Mcg) Tab PO 1,000 unit QDAY JOHN Administration Famotidine 20 mg 12/04/21 10:00 12/04/21 10:38 Famotidine 20 Mg/2 Ml Inj IV 20 mg QDAY JOHN Administration Fentanyl 50 mcg 12/03/21 17:22 Fentanyl 100 Mcg/2 Ml Inj IV Q10MIN PRN ANALGESIA Furosemide 20 mg 12/03/21 18:00 12/04/21 05:13 Furosemide 20 Mg/2 Ml Inj IV 12/05/21 06:01 20 mg Q12H JOHN Administration Heparin Sodium (Porcine) 5,000 unit 12/03/21 22:00 12/04/21 10:37 Heparin 5,000 Unit/1 Ml Vial SUB-Q 5,000 unit Q12HR JOHN Administration Hydromorphone HCl 0.25 mg 12/03/21 13:12 Hydromorphone 1 Mg/1 Ml Inj IV Q4H PRN Pain, Moderate (4-6) Hydromorphone HCl 0.5 mg 12/03/21 13:12 Hydromorphone 1 Mg/1 Ml Inj IV Q23H PRN Pain , Severe (7-10) Hydrophilic Ointment 1 applic 12/03/21 17:48 Lip Therapy Vaseline TP Q2HR PRN Dry Lips Nicardipine/Sodium Chloride 40 mg in 200 mls @ 25 mls/hr 12/03/21 14:00 12/03/21 22:15 Cardene Drip 40 Mg/200 Ml IV Infused TITR JOHN Titration Protocol 5 MG/HR Ceftriaxone Sodium 2 gm in 100 mls @ 200 mls/hr 12/03/21 14:00 12/03/21 15:00 Rocephin/Ns 2 Gm/100 Ml IV 200 mls/hr Q24H JOHN Administration Protocol Fentanyl Citrate 2,000 mcg in 100 mls @ 2.495 mls/hr 12/03/21 18:00 12/04/21 02:04 Fentanyl Drip Premix IV 3 mcg/kg/hr TITR JOHN 7.484 mls/hr Administration Protocol 1 MCG/KG/HR Propofol 1,000 mg in 100 mls @ 1.497 mls/hr 12/03/21 19:00 12/04/21 03:28 Diprivan 10 Mg/Ml IV 20 mcg/kg/min TITR JOHN 5.987 mls/hr Titration Protocol 5 MCG/KG/MIN Methylprednisolone Sodium Succinate 40 mg 12/03/21 14:00 12/04/21 05:14 Methylprednisolone Sod Succinate 40 Mg/1 Ml Inj IV 40 mg Q8HR JOHN Administration Multi-Ingred Cream/Lotion/Oil/Oint 1 applic 12/03/21 17:48 Mineral Oil/Petrolatum, White Ophth Oint 3.5 Gm OU Q4HR PRN Dry Eye(s) Oxycodone/Acetaminophen 1 tab 12/03/21 13:12 Oxycodone /Acetaminophen 5-325mg Tab PO Q16H PRN Pain, Moderate (4-6) Senna/Docusate Sodium 1 tab 12/03/21 22:00 12/04/21 10:37 Sennosides/Docusate Sodium 8.6/50 Mg Tab FEEDTUBE 1 tab BID JOHN Administration Sodium Chloride 10 ml 12/03/21 22:00 12/04/21 10:38 Sodium Chloride 0.9% 10 Ml Flush Syringe IV 10 ml BID JOHN Administration Sodium Chloride 10 ml 12/03/21 13:12 Sodium Chloride 0.9% 10 Ml Flush Syringe IV PRN PRN LINE FLUSH Zinc Sulfate 220 mg 12/03/21 22:00 12/04/21 10:37 Zinc Sulfate 220 Mg Cap PO 220 mg BID JOHN Administration <JOY ROGEL - Last Filed: 12/05/21 07:37> Assessment and Plan Assessment and plan: I saw and evaluated the patient. I agree with the findings and the plan of care as documented in the Nurse Practitioner's~note, with the following corrections and additions. Hospitalist Physical - Constitutional Vitals: Temp Pulse Resp BP Pulse Ox 98.1 F 99 H 14 147/92 97 12/05/21 05:00 12/05/21 06:01 12/05/21 05:00 12/05/21 06:01 12/05/21 06:01 HEART Score - HEART Score Troponin: Troponin T 0.022 ng/mL (0.00-0.029) 12/04/21 13:29 Results - Labs CBC & Chem 7: 12/05/21 05:30 12/04/21 04:00 Labs: Laboratory Last Values WBC 17.0 K/mm3 (4.5-11.0) H 12/05/21 05:30 RBC 4.62 M/mm3 (3.65-5.03) 12/05/21 05:30 Hgb 11.4 gm/dl (10.1-14.3) 12/05/21 05:30 Hct 36.2 % (30.3-42.9) 12/05/21 05:30 MCV 78 fl (79-97) L 12/05/21 05:30 MCH 25 pg (28-32) L 12/05/21 05:30 MCHC 32 % (30-34) 12/05/21 05:30 RDW 18.9 % (13.2-15.2) H 12/05/21 05:30 Plt Count 264 K/mm3 (140-440) 12/05/21 05:30 Add Manual Diff Complete 12/04/21 04:00 Total Counted 100 12/04/21 04:00 Seg Neutrophils % [employer]asswind Instrument Repairer 12/04/21 04:00 Seg Neuts % (Manual) 98.0 % (40.0-70.0) H 12/04/21 04:00 Band Neutrophils % 0 % 12/04/21 04:00 Lymphocytes % (Manual) 2.0 % (13.4-35.0) L 12/04/21 04:00 Reactive Lymphs % (Man) 0 % 12/04/21 04:00 Monocytes % (Manual) 0 % (0.0-7.3) 12/04/21 04:00 Eosinophils % (Manual) 0 % (0.0-4.3) 12/04/21 04:00 Basophils % (Manual) 0 % (0.0-1.8) 12/04/21 04:00 Metamyelocytes % 0 % 12/04/21 04:00 Myelocytes % 0 % 12/04/21 04:00 Promyelocytes % 0 % 12/04/21 04:00 Blast Cells % 0 % 12/04/21 04:00 Nucleated RBC % Not Reportable 12/04/21 04:00 Seg Neutrophils # Man 13.0 K/mm3 (1.8-7.7) H 12/04/21 04:00 Band Neutrophils # 0.0 K/mm3 12/04/21 04:00 Lymphocytes # (Manual) 0.3 K/mm3 (1.2-5.4) L 12/04/21 04:00 Abs React Lymphs (Man) 0.0 K/mm3 12/04/21 04:00 Monocytes # (Manual) 0.0 K/mm3 (0.0-0.8) 12/04/21 04:00 Eosinophils # (Manual) 0.0 K/mm3 (0.0-0.4) 12/04/21 04:00 Basophils # (Manual) 0.0 K/mm3 (0.0-0.1) 12/04/21 04:00 Metamyelocytes # 0.0 K/mm3 12/04/21 04:00 Myelocytes # 0.0 K/mm3 12/04/21 04:00 Promyelocytes # 0.0 K/mm3 12/04/21 04:00 Blast Cells # 0.0 K/mm3 12/04/21 04:00 WBC Morphology Not Reportable 12/04/21 04:00 Hypersegmented Neuts Not Reportable 12/04/21 04:00 Hyposegmented Neuts Not Reportable 12/04/21 04:00 Hypogranular Neuts Not Reportable 12/04/21 04:00 Smudge Cells Not Reportable 12/04/21 04:00 Toxic Granulation Not Reportable 12/04/21 04:00 Toxic Vacuolation Not Reportable 12/04/21 04:00 Dohle Bodies Not Reportable 12/04/21 04:00 Pelger-Huet Anomaly Not Reportable 12/04/21 04:00 Gaurav Rods Not Reportable 12/04/21 04:00 Platelet Estimate Consistent w auto 12/04/21 04:00 Clumped Platelets Not Reportable 12/04/21 04:00 Plt Clumps, EDTA Not Reportable 12/04/21 04:00 Large Platelets Not Reportable 12/04/21 04:00 Giant Platelets Not Reportable 12/04/21 04:00 Platelet Satelliting Not Reportable 12/04/21 04:00 Plt Morphology Comment Not Reportable 12/04/21 04:00 RBC Morphology Not Reportable 12/04/21 04:00 Dimorphic RBCs Not Reportable 12/04/21 04:00 Polychromasia Not Reportable 12/04/21 04:00 Hypochromasia 1+ 12/04/21 04:00 Poikilocytosis Not Reportable 12/04/21 04:00 Anisocytosis 1+ 12/04/21 04:00 Microcytosis Not Reportable 12/04/21 04:00 Macrocytosis Not Reportable 12/04/21 04:00 Spherocytes Not Reportable 12/04/21 04:00 Pappenheimer Bodies Not Reportable 12/04/21 04:00 Sickle Cells Not Reportable 12/04/21 04:00 Target Cells Not Reportable 12/04/21 04:00 Tear Drop Cells Not Reportable 12/04/21 04:00 Ovalocytes Not Reportable 12/04/21 04:00 Helmet Cells Not Reportable 12/04/21 04:00 Castillo-Bowler Bodies Not Reportable 12/04/21 04:00 [place] Rings Not Reportable 12/04/21 04:00 [place] Cells Not Reportable 12/04/21 04:00 Bite Cells Not Reportable 12/04/21 04:00 Crenated Cell Not Reportable 12/04/21 04:00 Elliptocytes Not Reportable 12/04/21 04:00 Acanthocytes (Spur) Not Reportable 12/04/21 04:00 Rouleaux Not Reportable 12/04/21 04:00 Hemoglobin C Crystals Not Reportable 12/04/21 04:00 Schistocytes Not Reportable 12/04/21 04:00 Malaria parasites Not Reportable 12/04/21 04:00 Richard Bodies Not Reportable 12/04/21 04:00 Hem Pathologist Commnt No 12/04/21 04:00 D-Dimer 1502.54 ng/mlDDU (0-234) H 12/03/21 09:49 ABG pH 7.408 pH Units (7.350-7.450) 12/04/21 17:50 POC ABG pCO2 38.6 mmHg (32.0-48.0) 12/04/21 03:32 ABG pCO2 31.0 mm Hg 12/04/21 17:50 POC ABG pO2 93.7 mmHg (83-108) 12/04/21 03:32 ABG pO2 178.7 mm Hg (80.0-90.0) H 12/04/21 17:50 POC ABG HCO3 18.1 12/04/21 03:32 ABG HCO3 19.1 mmol/L (20.0-26.0) L 12/04/21 17:50 ABG O2 Saturation 99.2 % (95.0-99.0) H 12/04/21 17:50 ABG O2 Content 15.5 (0.0-44) 12/04/21 17:50 POC ABG Base Excess -7.9 12/04/21 03:32 ABG Base Excess -4.7 mmol/L (-2.0-3.0) L 12/04/21 17:50 ABG Hemoglobin 11.1 gm/dl (12.0-16.0) L 12/04/21 17:50 ABG Oxyhemoglobin 95.8 (94-98) 12/04/21 03:32 ABG Carboxyhemoglobin 1.8 % (0.0-5.0) 12/04/21 17:50 ABG Methemoglobin 0.4 % (0.0-1.5) 12/04/21 17:50 Oxyhemoglobin 96.9 % (95.0-99.0) 12/04/21 17:50 Carboxyhemoglobin 1.1 (0.5-1.5) 12/04/21 03:32 FiO2 40 % 12/04/21 17:50 FiO2 % 40.0 12/04/21 03:32 Sodium 139 mmol/L (137-145) 12/04/21 04:00 Potassium 4.4 mmol/L (3.6-5.0) 12/04/21 04:00 Chloride 107.4 mmol/L (98-107) H 12/04/21 04:00 Carbon Dioxide 20 mmol/L (22-30) L 12/04/21 04:00 Anion Gap 16 mmol/L 12/04/21 04:00 BUN 34 mg/dL (7-17) H 12/04/21 04:00 Creatinine 3.0 mg/dL (0.6-1.2) H 12/04/21 04:00 Estimated GFR 14 ml/min 12/05/21 05:30 BUN/Creatinine Ratio 15 % 12/05/21 05:30 Glucose 119 mg/dL (65-100) H 12/04/21 04:00 POC Glucose 86 mg/dL (70-105) 12/04/21 16:01 Lactic Acid 1.10 mmol/L (0.7-2.0) 12/03/21 17:50 Calcium 8.4 mg/dL (8.4-10.2) 12/04/21 04:00 Ferritin 171.6 ng/mL (10.0-200.0) 12/03/21 09:49 Total Bilirubin 0.60 mg/dL (0.1-1.2) 12/04/21 04:00 AST 16 units/L (5-40) 12/04/21 04:00 ALT 13 units/L (7-56) 12/04/21 04:00 Alkaline Phosphatase 87 units/L (35-129) 12/04/21 04:00 Lactate Dehydrogenase 496 units/L (91-180) H 12/03/21 09:49 Troponin T 0.022 ng/mL (0.00-0.029) 12/04/21 13:29 C-Reactive Protein 0.30 mg/dL (0.00-1.30) 12/03/21 09:49 NT-Pro-B Natriuret Pep 12989 pg/mL (0-450) H 12/03/21 13:26 Total Protein 6.6 g/dL (6.3-8.2) 12/04/21 04:00 Albumin 3.4 g/dL (3.9-5) L 12/04/21 04:00 Albumin/Globulin Ratio 1.1 % 12/04/21 04:00 Procalcitonin 0.06 ng/mL (<0.15) 12/03/21 09:49 Urine Opiates Screen Negative 12/03/21 Unknown Urine Methadone Screen Negative 12/03/21 Unknown Ur Barbiturates Screen Negative 12/03/21 Unknown Ur Phencyclidine Scrn Negative 12/03/21 Unknown Ur Amphetamines Screen Negative 12/03/21 Unknown U Benzodiazepines Scrn Negative 12/03/21 Unknown Urine Cocaine Screen Positive 12/03/21 Unknown U Marijuana (THC) Screen Negative 12/03/21 Unknown Drugs of Abuse Note Disclamer 12/03/21 Unknown SARS-CoV-2 (PCR) Negative (Negative) 12/03/21 10:29 Blood Type A NEGATIVE 12/03/21 17:50 Antibody Screen Negative 12/03/21 17:50 Microbiology: Microbiology 12/03/21 13:26 Peripheral/Venous Blood Culture - Preliminary NO GROWTH AFTER 24 HOURS 12/03/21 13:26 Peripheral/Venous Blood Culture - Preliminary NO GROWTH AFTER 24 HOURS Sen/IV: Voiding Method Indwelling Catheter Active Medications - Current Medications Current Medications: Generic Name Dose Route Start Last Admin Trade Name Freq PRN Reason Stop Dose Admin Acetaminophen 650 mg 12/03/21 16:50 Acetaminophen 325 Mg Tab PO Q6H PRN Pain, Mild (1-3) Albuterol 2.5 mg 12/03/21 13:12 Albuterol 2.5 Mg/3 Ml Nebu IH Q3HRT PRN Shortness Of Breath Ascorbic Acid 500 mg 12/03/21 22:00 12/04/21 22:00 Ascorbic Acid 500 Mg Tab PO 500 mg BID JOHN Administration Cholecalciferol 1,000 unit 12/04/21 11:00 12/04/21 10:45 Cholecalciferol (Vit D3) 1000 Unit (25 Mcg) Tab PO 1,000 unit QDAY JOHN Administration Famotidine 20 mg 12/04/21 10:00 12/04/21 10:38 Famotidine 20 Mg/2 Ml Inj IV 20 mg QDAY JOHN Administration Fentanyl 50 mcg 12/03/21 17:22 Fentanyl 100 Mcg/2 Ml Inj IV Q10MIN PRN ANALGESIA Heparin Sodium (Porcine) 5,000 unit 12/03/21 22:00 12/04/21 22:00 Heparin 5,000 Unit/1 Ml Vial SUB-Q 5,000 unit Q12HR JOHN Administration Hydralazine HCl 50 mg 12/04/21 22:00 12/05/21 06:12 Hydralazine 25 Mg Tab PO 50 mg Q8HR JOHN Administration Hydralazine HCl 10 mg 12/04/21 18:00 12/05/21 06:12 Hydralazine 20 Mg/1 Ml Inj IV 12/06/21 17:59 Not Given Q4HR [facility] Hydromorphone HCl 0.25 mg 12/03/21 13:12 Hydromorphone 1 Mg/1 Ml Inj IV Q4H PRN Pain, Moderate (4-6) Hydromorphone HCl 0.5 mg 12/03/21 13:12 12/05/21 03:49 Hydromorphone 1 Mg/1 Ml Inj IV 0.5 mg Q23H PRN Administration Pain , Severe (7-10) Hydrophilic Ointment 1 applic 12/03/21 17:48 Lip Therapy Vaseline TP Q2HR PRN Dry Lips Nicardipine/Sodium Chloride 40 mg in 200 mls @ 25 mls/hr 12/03/21 14:00 12/03/21 22:15 Cardene Drip 40 Mg/200 Ml IV Infused TITR JOHN Titration Protocol 5 MG/HR Fentanyl Citrate 2,000 mcg in 100 mls @ 2.495 mls/hr 12/03/21 18:00 12/04/21 18:30 Fentanyl Drip Premix IV 0 mcg/kg/hr TITR JOHN 0 mls/hr Titration Protocol 1 MCG/KG/HR Propofol 1,000 mg in 100 mls @ 1.497 mls/hr 12/03/21 19:00 12/04/21 18:31 Diprivan 10 Mg/Ml IV 0 mcg/kg/min TITR JOHN 0 mls/hr Titration Protocol 5 MCG/KG/MIN Methylprednisolone Sodium Succinate 40 mg 12/03/21 14:00 12/05/21 06:13 Methylprednisolone Sod Succinate 40 Mg/1 Ml Inj IV 40 mg Q8HR JOHN Administration Multi-Ingred Cream/Lotion/Oil/Oint 1 applic 12/03/21 17:48 Mineral Oil/Petrolatum, White Ophth Oint 3.5 Gm OU Q4HR PRN Dry Eye(s) Ondansetron HCl 4 mg 12/04/21 20:36 12/04/21 20:30 Ondansetron 4 Mg/2 Ml Inj IV 4 mg Q8H PRN Administration Nausea And Vomiting Oxycodone/Acetaminophen 1 tab 12/03/21 13:12 Oxycodone /Acetaminophen 5-325mg Tab PO Q16H PRN Pain, Moderate (4-6) Senna/Docusate Sodium 1 tab 12/03/21 22:00 12/04/21 22:00 Sennosides/Docusate Sodium 8.6/50 Mg Tab FEEDTUBE 1 tab BID JOHN Administration Sodium Chloride 10 ml 12/03/21 22:00 12/04/21 22:00 Sodium Chloride 0.9% 10 Ml Flush Syringe IV 10 ml BID JOHN Administration Sodium Chloride 10 ml 12/03/21 13:12 Sodium Chloride 0.9% 10 Ml Flush Syringe IV PRN PRN LINE FLUSH Zinc Sulfate 220 mg 12/03/21 22:00 12/04/21 22:00 Zinc Sulfate 220 Mg Cap PO 220 mg BID JOHN Administration Nutrition/Malnutrition Assess - Dietary Evaluation Nutrition/Malnutrition Findings: Nutrition Notes Start: 12/04/21 11:58 Freq: Status: Active Protocol: Document 12/04/21 11:58 [facility] (Rec: 12/04/21 12:07 [facility] [id number]) Nutrition Notes Need for Assessment generated from: MD Order Initial or Follow up Assessment Current Diagnosis Acute Kidney Injury,Sepsis, Hypertension,Heart Failure, Respiratory Failure,Stroke Other Pertinent Diagnosis Bilat pneu, hypertensive emergency, encephalopathy, cocaine dependence Current Diet NPO Labs/Tests BUN 34 Cr 3 Pertinent Medications Vit C, Vit D3, Zn sulfate, Lasix, Solumedrol, Cardene gtt , Propofol at 1.497ml/hr ( provides 40 kcal) Height 5 ft 2 in Weight 58 kg [place] Body Weight (kg) 50.00 BMI 23.3 Weight Status Appropriate Subjective/Other Information RD consulted for TF; pt also screened for malnutrition risk . Pt on vent support. 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 Yes Is Patient Ambulatory and/or Out of Bed No REE-(Bruce-St. Jeor-confined to bed) [phone] Calculation Used for Recommendations [facility] Additional Notes Pro needs 1.2-2g/k-116g/ day Fluid needs 1ml/kcal Nutrition Intervention Nutrition Support: Osmolite 1.5 at 40ml/hr with 120ml water flush q4h. Kcal 1,440 Protein (gm) 60 Carbohydrates (gm) 195 Fat (gm) 47 Fluid (mL) 732 Fiber (gm) 0 Goal #1 TF tolerance Goal #2 TF to meet at least 75% energy and pro needs Anticipated Discharge Needs: Unable to identify at this time Follow-Up By: 12/07/21 Additional Comments F/U: new TF, vent status
[2021-12-04] MEDS ORDERED: hydrALAZINE 20 MG/1 ML INJ IV PRN (11:59)
--- NOTE | 2021-12-04 12:09 | Consultation ---
History of Present Illness Consult date: 12/04/21 Requesting physician: ORIANA DOMINGO Consult reason: congestive heart failure History of present illness: Patient is a 40-year-old female with a past medical history of asthma, hypertension, CVA and cocaine dependence who presented to the ED yesterday for complaint of "I cannot breathe. History is taken from chart due to patient being intubated and sedated. Per documentation patient patient was found by EMS in respiratory distress and given nebulizer treatment and transported to [facility]. In the ED patient was found to be breathing using accessory muscles and tripoding and unable to come speak in complete sentences. Patient had O2 sats of 88% on room air. Per documentation patient became altered and was unable to maintain airway and therefore was intubated. Furthermore, patient was found to have a blood pressure of 245/159 and started on Cardene drip. Of note patient was found to have elevated creatinine and elevated BNP. CXR showed pneumonia. Patient is previously unknown to our practice. Cardiology is consulted for CHF. Past History Past Medical History: hypertension, stroke Past Surgical History: No surgical history, Other (Reviewed) Social history: single, smoking, other (Substance abuse) Family history: diabetes, hypertension Medications and Allergies Allergies Allergy/AdvReac Type Severity Reaction Status Date / Time codeine Allergy Unknown Verified 12/03/21 08:36 peach Allergy Unknown Verified 12/03/21 08:36 Active Meds: Active Medications Acetaminophen (Acetaminophen 325 Mg Tab) 650 mg PO Q6H PRN PRN Reason: Pain, Mild (1-3) Albuterol (Albuterol 2.5 Mg/3 Ml Nebu) 2.5 mg IH Q3HRT PRN PRN Reason: Shortness Of Breath Ascorbic Acid (Ascorbic Acid 500 Mg Tab) 500 mg PO BID [facility] Last Admin: 12/04/21 10:37 Dose: 500 mg Cholecalciferol (Cholecalciferol (Vit D3) 1000 Unit (25 Mcg) Tab) 1,000 unit PO QDAY [facility] Last Admin: 12/04/21 10:45 Dose: 1,000 unit Famotidine (Famotidine 20 Mg/2 Ml Inj) 20 mg IV QDAY [facility] Last Admin: 12/04/21 10:38 Dose: 20 mg Fentanyl (Fentanyl 100 Mcg/2 Ml Inj) 50 mcg IV Q10MIN PRN PRN Reason: ANALGESIA Furosemide (Furosemide 20 Mg/2 Ml Inj) 20 mg IV Q12H JOHN Stop: 12/05/21 06:01 Last Admin: 12/04/21 05:13 Dose: 20 mg Heparin Sodium (Porcine) (Heparin 5,000 Unit/1 Ml Vial) 5,000 unit SUB-Q Q12HR JOHN Last Admin: 12/04/21 10:37 Dose: 5,000 unit Hydralazine HCl (Hydralazine 20 Mg/1 Ml Inj) 10 mg IV Q6HR PRN PRN Reason: Blood Pressure Hydromorphone HCl (Hydromorphone 1 Mg/1 Ml Inj) 0.25 mg IV Q4H PRN PRN Reason: Pain, Moderate (4-6) Hydromorphone HCl (Hydromorphone 1 Mg/1 Ml Inj) 0.5 mg IV Q23H PRN PRN Reason: Pain , Severe (7-10) Hydrophilic Ointment (Lip Therapy Vaseline) 1 applic TP Q2HR PRN PRN Reason: Dry Lips Nicardipine/Sodium Chloride (Cardene Drip 40 Mg/200 Ml) 40 mg in 200 mls @ 25 mls/hr IV TITR JOHN; Protocol Last Titration: 12/03/21 22:15 Dose: Infused Ceftriaxone Sodium (Rocephin/Ns 2 Gm/100 Ml) 2 gm in 100 mls @ 200 mls/hr IV Q24H JOHN; Protocol Last Admin: 12/03/21 15:00 Dose: 200 mls/hr Fentanyl Citrate (Fentanyl Drip Premix) 2,000 mcg in 100 mls @ 2.495 mls/hr IV TITR JOHN; Protocol Last Admin: 12/04/21 02:04 Dose: 3 mcg/kg/hr, 7.484 mls/hr Propofol (Diprivan 10 Mg/Ml) 1,000 mg in 100 mls @ 1.497 mls/hr IV TITR JOHN; Protocol Last Admin: 12/04/21 11:28 Dose: 20 mcg/kg/min, 5.987 mls/hr Methylprednisolone Sodium Succinate (Methylprednisolone Sod Succinate 40 Mg/1 Ml Inj) 40 mg IV Q8HR JOHN Last Admin: 12/04/21 05:14 Dose: 40 mg Multi-Ingred Cream/Lotion/Oil/Oint (Mineral Oil/Petrolatum, White Ophth Oint 3.5 Gm) 1 applic OU Q4HR PRN PRN Reason: Dry Eye(s) Oxycodone/Acetaminophen (Oxycodone /Acetaminophen 5-325mg Tab) 1 tab PO Q16H PRN PRN Reason: Pain, Moderate (4-6) Senna/Docusate Sodium (Sennosides/Docusate Sodium 8.6/50 Mg Tab) 1 tab FEEDTUBE BID [facility] Last Admin: 12/04/21 10:37 Dose: 1 tab Sodium Chloride (Sodium Chloride 0.9% 10 Ml Flush Syringe) 10 ml IV BID [facility] Last Admin: 12/04/21 10:38 Dose: 10 ml Sodium Chloride (Sodium Chloride 0.9% 10 Ml Flush Syringe) 10 ml IV PRN PRN PRN Reason: LINE FLUSH Zinc Sulfate (Zinc Sulfate 220 Mg Cap) 220 mg PO BID [facility] Last Admin: 12/04/21 10:37 Dose: 220 mg Review of Systems ROS unobtainable: due to endotracheal tube, due to mental status Physical Examination Vital Signs Temp Pulse Resp BP Pulse Ox 98.1 F 105 H 20 244/169 97 12/03/21 08:31 12/03/21 08:31 12/03/21 08:31 12/03/21 08:31 12/03/21 08:31 General appearance: other (Intubated and sedated) HEENT: Positive: Normocephaly Cardiac: Positive: Reg Rate and Rhythm Lungs: Positive: Ventilated Respirations Neuro: Positive: Other (Intubated and sedated unable to assess) Abdomen: Positive: Soft Skin: Negative: Rash, Suspicious Lesions Extremities: Present: upper extr. pulses, warm. Absent: edema Results 12/04/21 04:00 12/04/21 04:00 Cardiac Enzymes 12/04/21 Range/Units 04:00 AST 16 (5-40) units/L CBC 12/04/21 Range/Units 04:00 WBC 13.3 H (4.5-11.0) K/mm3 RBC 4.45 (3.65-5.03) M/mm3 Hgb 10.8 (10.1-14.3) gm/dl Hct 35.3 D (30.3-42.9) % Plt Count 208 (140-440) K/mm3 Comprehensive Metabolic Panel 12/04/21 Range/Units 04:00 Sodium 139 (137-145) mmol/L Potassium 4.4 (3.6-5.0) mmol/L Chloride 107.4 H (98-107) mmol/L Carbon Dioxide 20 L (22-30) mmol/L BUN 34 H (7-17) mg/dL Creatinine 3.0 H (0.6-1.2) mg/dL Glucose 119 H (65-100) mg/dL Calcium 8.4 (8.4-10.2) mg/dL AST 16 (5-40) units/L ALT 13 (7-56) units/L Alkaline Phosphatase 87 (35-129) units/L Total Protein 6.6 (6.3-8.2) g/dL Albumin 3.4 L (3.9-5) g/dL - Imaging and Cardiology Echo: pending EKG: report reviewed, image reviewed EKG interpretations - Telemetry EKG Rhythm: Sinus Rhythm - EKG Sinus rhythms and dysrhythmias: sinus rhythm Repolarization changes or abnormalities: nonspecific abnormality, ST segment, and/or T wave Assessment and Plan Patient is a 40-year-old female with a past medical history of asthma, hypertension, CVA and cocaine dependence who presented to the ED yesterday for complaint of "I cannot breathe. Acute hypoxic respiratory failure-pulmonology following Pneumonia Pulmonary edema LILIYA-nephrology following CHF Hypertensive emergency s/p Cardene drip AMS Asthma History of CVA Cocaine dependency Plan: EKG shows sinus rhythm 58 LVH with repolarization abnormality. No acute ischemic changes. Troponins negative x1. Repeat cardiac enzyme pending BNP noted to be elevated. At time of exam patient appears euvolemic Agree with Lasix 20 g IV twice daily if okay with nephrology Echo pending No GALE or ARB's due to elevated creatinine Patient seen in conjunction with Dr. Light who agrees with this plan of care - Patient Problems (1) LILIYA (acute kidney injury) Current Visit: Yes Status: Acute (2) Acute hypoxemic respiratory failure Current Visit: Yes Status: Acute (3) Bilateral pneumonia Current Visit: Yes Status: Acute Qualifiers: Pneumonia type: due to unspecified organism Lung location: lower lobe of lung Qualified Code(s): J18.9 - Pneumonia, unspecified organism (4) CHF (congestive heart failure) Current Visit: Yes Status: Acute Qualifiers: Heart failure chronicity: acute on chronic (5) Cocaine dependence Current Visit: Yes Status: Acute (6) Hypertensive emergency Current Visit: Yes Status: Acute (7) Hypertensive encephalopathy Current Visit: Yes Status: Acute (8) Pulmonary edema Current Visit: Yes Status: Acute Qualifiers: Chronicity: acute Qualified Code(s): J81.0 - Acute pulmonary edema (9) Sepsis Current Visit: Yes Status: Acute Qualifiers: Acute respiratory failure type: with hypoxia
--- NOTE | 2021-12-04 13:47 | Progress Note ---
Assessment and Plan Acute hypoxemic respiratory failure om MVS Hypertensive emergency Flash pulmonary edema Polysubstance abuse HTN AE-CHF H/O CVA Asthma Leukocytosis Metabolic acidosis Oropharyngeal dysphagia Cocaine abuse - hold sedation - place on SBT - ABG after 2 hours - extubate if acceptable - discontinue empiric AB's - schedule oral and IV Hydralazine with hold parameters - avoid B-blockers - continue care as below otherwise for now; - Daily SAT and SBT assessment as tolerated - wean supplemental oxygen for target O2 sat's > 90% acutely - VAP bundle addressed - continue lung protective strategies - continue bronchodilators with pulmonary hygiene per RT - wean per pulmonary driven protocols otherwise - continue accuchecks with glycemic control per SSI (While critically ill target blood glucose of 140-180 mg/dL; avoid hypoglycemia) - sedation prn for target RASS 0 to -1 - avoid nephrotoxins, renally dose all medications - continue to avoid benzodiazepine's, reduce the possibility of delirium - prn analgesia per CPOT score - Maintenance of sleep-wake cycle, avoid delirium - continue enteral nutritional support at goal rate as tolerated - G.I. & VTE prophylaxis - PT/OT/ROM exercises - continue mobility protocols for pressure ulcer prophylaxis - Monitor hemodynamics closely - continue other care per attending / other consultants - discharge planning ongoing concurrently COVID SPECIFIC INTERVENTIONS - COVID-19 PCR test negative .... Re-evaluate in am & prn CONDITION: CRITICAL PROGNOSIS: GUARDED CODE STATUS: FULL CODE The high probability of a clinically significant, sudden or life-threatening deterioration of the [respiratory, cardiovascular & neurologic] system(s) required my full and direct attention, intervention and personal management. The aggregate critical care time was [34] minutes without overlap. Time includes spent on; [x] Data Review and interpretation [x] Patient assessment and monitoring of vital signs [x] Documentation [x] Medication orders and management Subjective Date of service: 12/04/21 Principal diagnosis: AHRF; HTNsive emergency; Pulmonary edema; AE-CHF; Asthma; Cocaine abuse Interval history: Patient is seen today for: Acute hypoxemic respiratory failure; Hypertensive emergency; Pulmonary edema; AE-CHF; Asthma; Cocaine abuse Seen and examined at bedside; 24hour events reviewed; nursing and respiratory care staff consulted; no adverse overnight events reported to me; resting peacefully in bed; failed bedside SBT; no emesis or overt aspiration; tolerated bedside SBT well; no emesis or overt aspiration; BP's still running high Objective Vital Signs - 12hr 12/04/21 12/04/21 12/04/21 01:45 02:00 02:15 Temperature Pulse Rate 69 65 67 Pulse Rate [ From Monitor] Respiratory 21 20 20 Rate Blood Pressure 149/93 136/88 138/92 O2 Sat by Pulse 100 100 100 Oximetry 12/04/21 12/04/21 12/04/21 02:30 02:45 03:00 Temperature Pulse Rate 72 67 67 Pulse Rate [ From Monitor] Respiratory 20 20 20 Rate Blood Pressure 144/92 143/93 147/94 O2 Sat by Pulse 100 100 100 Oximetry 12/04/21 12/04/21 12/04/21 03:16 03:30 03:34 Temperature Pulse Rate 63 68 66 Pulse Rate [ From Monitor] Respiratory 15 20 Rate Blood Pressure 146/97 155/96 155/96 O2 Sat by Pulse 100 100 100 Oximetry 12/04/21 12/04/21 12/04/21 03:45 03:50 04:00 Temperature 98.0 F Pulse Rate 66 68 Pulse Rate [ From Monitor] Respiratory 20 20 20 Rate Blood Pressure 149/94 148/96 O2 Sat by Pulse 100 100 100 Oximetry 12/04/21 12/04/21 12/04/21 04:16 04:30 04:45 Temperature Pulse Rate 69 68 65 Pulse Rate [ From Monitor] Respiratory 19 20 20 Rate Blood Pressure 148/96 144/91 142/92 O2 Sat by Pulse 100 100 100 Oximetry 12/04/21 12/04/21 12/04/21 05:00 05:15 05:30 Temperature Pulse Rate 65 62 66 Pulse Rate [ From Monitor] Respiratory 20 20 20 Rate Blood Pressure 147/89 139/91 131/89 O2 Sat by Pulse 100 100 100 Oximetry 12/04/21 12/04/21 12/04/21 05:45 05:56 06:00 Temperature 98.0 F Pulse Rate 65 65 Pulse Rate [ From Monitor] Respiratory 20 Rate Blood Pressure 144/93 O2 Sat by Pulse 100 Oximetry 12/04/21 12/04/21 12/04/21 07:20 07:40 08:49 Temperature 99.1 F Pulse Rate 63 Pulse Rate [ 61 From Monitor] Respiratory 20 Rate Blood Pressure 143/84 O2 Sat by Pulse 97 97 Oximetry 0212/04/21 12/04/21 09:56 11:33 12:00 Temperature 97.4 F L Pulse Rate 58 L 59 L Pulse Rate [ From Monitor] Respiratory Rate Blood Pressure 155/89 O2 Sat by Pulse 96 Oximetry Constitutional: no acute distress (sedated), other (middle aged female 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 [employer]) Eyes: non-icteric ENT: oropharynx moist, other (ETT 24 cm YAMILET) Neck: supple, no lymphadenopathy, no JVD Effort: normal Ascultation: Bilateral: diminished breath sounds, rhonchi Percussion: Bilateral: not dull Cardiovascular: regular rate and rhythm Gastrointestinal: normoactive bowel sounds, soft, non-tender, non-distended Integumentary: normal Extremities: no cyanosis, no edema, pulses normal, no ischemia or petechiae Neurologic: non-focal exam (grossly), pupils equal and round, motor strength normal and Psychiatric: other (sedated) CBC and BMP: 12/04/21 04:00 12/04/21 04:00 ABG, PT/INR, D-dimer: ABG ABG pH 7.289 (7.320-7.450) L 12/04/21 03:32 POC ABG pCO2 38.6 mmHg (32.0-48.0) 12/04/21 03:32 ABG pCO2 37.8 mm Hg 12/03/21 14:55 POC ABG pO2 93.7 mmHg (83-108) 12/04/21 03:32 ABG pO2 211.1 mm Hg (80.0-90.0) H 12/03/21 14:55 POC ABG HCO3 18.1 12/04/21 03:32 ABG O2 Saturation 96.9 (0-100) 12/04/21 03:32 PT/INR, D-dimer D-Dimer 1502.54 ng/mlDDU (0-234) H 12/03/21 09:49 Abnormal lab findings: Abnormal Labs 12/03/21 12/03/21 12/03/21 09:49 09:49 09:49 WBC 13.1 H RBC 5.40 H MCH 24 L RDW 18.3 H Seg Neuts % (Manual) 90.0 H Lymphocytes % (Manual) 5.0 L Seg Neutrophils # Man 11.8 H Lymphocytes # (Manual) 0.7 L D-Dimer ABG pH ABG pO2 ABG O2 Saturation ABG Base Excess ABG Hemoglobin Chloride Carbon Dioxide 18 L BUN 29 H Creatinine 2.7 H Glucose 108 H Lactate Dehydrogenase 496 H NT-Pro-B Natriuret Pep Albumin 12/03/21 12/03/21 12/03/21 09:49 13:26 14:55 WBC RBC MCH RDW Seg Neuts % (Manual) Lymphocytes % (Manual) Seg Neutrophils # Man Lymphocytes # (Manual) D-Dimer 1502.54 H ABG pH 7.348 L ABG pO2 211.1 H ABG O2 Saturation 99.3 H ABG Base Excess -4.8 L ABG Hemoglobin 11.9 L Chloride Carbon Dioxide BUN Creatinine Glucose Lactate Dehydrogenase NT-Pro-B Natriuret Pep 00295 H Albumin 12/04/21 12/04/21 12/04/21 03:32 04:00 04:00 WBC 13.3 H RBC MCH 24 L RDW 18.6 H Seg Neuts % (Manual) 98.0 H Lymphocytes % (Manual) 2.0 L Seg Neutrophils # Man 13.0 H Lymphocytes # (Manual) 0.3 L D-Dimer ABG pH 7.289 L ABG pO2 ABG O2 Saturation ABG Base Excess ABG Hemoglobin Chloride 107.4 H Carbon Dioxide 20 L BUN 34 H Creatinine 3.0 H Glucose 119 H Lactate Dehydrogenase NT-Pro-B Natriuret Pep Albumin 3.4 L Chest x-ray: image reviewed (improved bilateral infiltrates) Allied health notes reviewed: nursing
--- NOTE | 2021-12-04 14:44 | Electrocardiograph Report ---
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
[2021-12-04] MEDS: cefTRIAXone/NS 2 GM/100 ML 2 GM/100 ML BAG IV SCH (14:58)
[2021-12-04] MEDS ORDERED: hydrALAZINE 20 MG/1 ML INJ IV ONE (16:31)
[2021-12-04 18:11] LABS: ABG Base Excess -4.7 mmol/L (-2.0-3.0); ABG HCO3 19.1 mmol/L (20.0-26.0); ABG Methemoglobin 0.4 % (0.0-1.5); ABG Oxygen Saturation 99.2 % (95.0-99.0); ABG PH 7.408 pH Units (7.350-7.450); ABG PO2 178.7 mm Hg (80.0-90.0)
[2021-12-04] MEDS ORDERED: ONDANSETRON 4 MG/2 ML INJ IV PRN (20:36)
[2021-12-04] MEDS: hydrALAZINE 25 MG TAB PO SCH (22:00)
[2021-12-05] MEDS: hydrALAZINE 20 MG/1 ML INJ IV SCH ×8 (00:50→21:39)
[2021-12-05] MEDS ORDERED: METHADONE 10 MG TAB PO ONE (04:15)
[2021-12-05] MEDS ORDERED: diphenhydrAMINE 50 MG/ML VIAL IV ONE (04:53)
[2021-12-05] MEDS: hydrALAZINE 25 MG TAB PO SCH ×3 (06:12→21:38)
[2021-12-05] MEDS: methylPREDNISolone Sod Succinate 40 MG/1 ML INJ IV SCH ×2 (06:13→13:20)
[2021-12-05 06:47] LABS: Hematocrit 36.2 % (30.3-42.9); Hemoglobin 11.4 gm/dl (10.1-14.3); Mean Corpuscular HGB Conc 32 % (30-34); Mean Corpuscular Volume 78 fl (79-97); Platelet Count 264 K/mm3 (140-440); Red Blood Count 4.62 M/mm3 (3.65-5.03); Red Cell Distribution Width 18.9 % (13.2-15.2)
[2021-12-05 07:08] LABS: Calcium 8.4 mg/dL (8.4-10.2)
[2021-12-05 09:00] LABS: Creatinine,Urine 208.5 mg/dL (0.1-20.0)
[2021-12-05 09:01] LABS: Bacteria,Urine 1+ /HPF (Negative); Bilirubin,Urine NEG (Negative); Blood,Urine NEG (Negative); Color,Urine Yellow (Yellow); Hyaline Casts,Urine 1 /LPF; Mucus,Urine FEW /HPF; Urobilinogen,Urine < 2.0 mg/dL (<2.0)
[2021-12-05] MEDS: HEPARIN 5,000 UNIT/1 ML VIAL SUB-Q SCH ×2 (10:48→21:39)
[2021-12-05] MEDS: SENNOSIDES/DOCUSATE SODIUM 8.6/50 MG TAB FEEDTUBE SCH (10:48)
[2021-12-05] MEDS: FAMOTIDINE 20 MG/2 ML INJ IV SCH (10:49)
--- NOTE | 2021-12-05 11:04 | Progress Note ---
<ORIANA DOMINGO - Last Filed: 12/05/21 18:45> Assessment and Plan Assessment and plan: This is a 40-year-old female with past medical history of Asthma, HTN, CVA, and cocaine dependence admitted for acute hypoxemic respiratory failure secondary to bilateral pneumonia versus flash pulmonary edema and CHF exacerbation. Hospital Course to Date: 12/04: Intubated and sedated but arousable with mild stimuli. Plan for possible SAT and SBT today. Patient is off cardene gtt this am, continue PRN anti hypertensive for SBP greater than 160. This am CXR noted pulmonary edema improved post IV lasix, Cardiology consulted for CHF, unclear if patient has a history of CHF, 2D echo is pending. Will also hold off on IV Antibiotics for now, COVID PCR came back negative, patient remains afebrile, procal and CRP are normal. Renal function worsen, patient is also on IV lasix, Nephrology is following. 12/05: s/p extubation, now stable on 2L NC. Withdrawal symptoms overnight, received PO methadone. Symptoms resolved this am, will continue PO methadone for now. Psych consult pending. Renal function worsen this am, lasix on hold, Nephro is following. Patient is stable for transfer to floor. Assessment and Plan #Acute Hypoxemic Respiratory Failure 12/02 #Bilateral Pneumonia vs Flash Pulmonary Edema #H/o Asthma - Intubated in the ED on 12/03 - 12/04 extubated, stable on 2L NC - CCM consulted, appreciate recommendations - Aspiration precaution HOB above 30 - Continue O2 supplementation and wean as tolerated - Continue SPO2 monitoring for SPO2 goal above 95% #Acute Kidney Injury(LILIYA) - Patient baseline is unknown - Most likely intrinsic renal vascular disease in the setting of uncontrolled high blood pressure - Nephrology on consult, appreciated recommendation - Strict intake and output - Avoid nephrotoxic medications; Renally dose medications - Monitor and replace electrolytes as needed - Trend BMP #CHF (congestive heart failure) #Hypertensive Emergency-resolved - Unclear if patient has a history of HF - ProBNP greater than 29K on admit and hypertensive - s/p cardene gtt - 2D Echo noted- EF 40 to 45% - Cardiology on consult - Strict I/O and daily weight - Continue blood pressure monitor per protocol - PRN Antihypertensive for SBP greater than 160 #Bilateral Pneumonia - Initial CXR with possible bilateral vs pulminary edema - Repeat CXR with improve pulmonary edema - Patient remains on low vent setting and afebrile - Procal and CRP normal - Blood culture and sputum culture pending - IV antibitiotics on hold for now - Continue to F/U on cultures - Daily CBC monitoring #Acute Encephalopathy #Cocaine dependence - UDS + cocaine - Methadone added TID - Avoid delirium - PRN analgesia for CPOT greater than 3 - Maintenance of sleep-wake cycle - Psych consult pending #GI/DVT prophylaxis - Continue PPI- Pepcid - Continue AC- Heparin SubQ - SCD to bilateral lower extremities while in bed The high probability of a clinically significant, sudden or life threatening deterioration of the [multiple] system(s) required my full and direct attention, intervention and personal management. The aggregate critical care time was [60] minutes. This time is in addition to time spent performing reported procedures but includes the following: [x] Data Review and interpretation [x] Patient assessment and monitoring of vital signs [x] Documentation [x] Medication orders and management Disposition Plan: ICU Total Time Spent with Patient (Minutes): 60 History Interval history: Patient seen and examined at the bedside. Patient is s/p extubation, currently stable on 2L NC. Withdrawal symptoms overnight with increased agitation, high HR and hypertension, received PO methadone. Patient more calm and AAO this am, wit h no complaints. Tolerating PO intake. Hospitalist Physical - Constitutional Vitals: Temp Pulse Resp BP Pulse Ox 99.2 F 82 20 157/97 95 12/05/21 08:00 12/05/21 10:48 12/05/21 08:00 12/05/21 10:48 12/05/21 08:00 General appearance: Present: no acute distress - EENT Eyes: Present: PERRL, EOM intact ENT: hearing intact - Neck Neck: Present: normal ROM - Respiratory Respiratory effort: normal Respiratory: bilateral: wheezing - Cardiovascular Rhythm: regular Heart Sounds: Present: S1 & S2 - Extremities Extremities: no ischemia, pulses intact, pulses symmetrical Peripheral Pulses: within normal limits - Abdominal General gastrointestinal: soft, non-distended, normal bowel sounds - Integumentary Integumentary: Present: warm, dry - Psychiatric Psychiatric: appropriate mood/affect, cooperative - Neurologic Neurologic: CNII-XII intact, moves all extremities - Allied Health Allied health notes reviewed: nursing HEART Score - HEART Score Troponin: Troponin T 0.022 ng/mL (0.00-0.029) 12/04/21 13:29 Results - Labs CBC & Chem 7: 12/05/21 05:30 12/05/21 05:30 Labs: Laboratory Last Values WBC 17.0 K/mm3 (4.5-11.0) H 12/05/21 05:30 RBC 4.62 M/mm3 (3.65-5.03) 12/05/21 05:30 Hgb 11.4 gm/dl (10.1-14.3) 12/05/21 05:30 Hct 36.2 % (30.3-42.9) 12/05/21 05:30 MCV 78 fl (79-97) L 12/05/21 05:30 MCH 25 pg (28-32) L 12/05/21 05:30 MCHC 32 % (30-34) 12/05/21 05:30 RDW 18.9 % (13.2-15.2) H 12/05/21 05:30 Plt Count 264 K/mm3 (140-440) 12/05/21 05:30 Add Manual Diff Complete 12/04/21 04:00 Total Counted 100 12/04/21 04:00 Seg Neutrophils % Plate Glass Installer Helper 12/04/21 04:00 Seg Neuts % (Manual) 98.0 % (40.0-70.0) H 12/04/21 04:00 Band Neutrophils % 0 % 12/04/21 04:00 Lymphocytes % (Manual) 2.0 % (13.4-35.0) L 12/04/21 04:00 Reactive Lymphs % (Man) 0 % 12/04/21 04:00 Monocytes % (Manual) 0 % (0.0-7.3) 12/04/21 04:00 Eosinophils % (Manual) 0 % (0.0-4.3) 12/04/21 04:00 Basophils % (Manual) 0 % (0.0-1.8) 12/04/21 04:00 Metamyelocytes % 0 % 12/04/21 04:00 Myelocytes % 0 % 12/04/21 04:00 Promyelocytes % 0 % 12/04/21 04:00 Blast Cells % 0 % 12/04/21 04:00 Nucleated RBC % Not Reportable 12/04/21 04:00 Seg Neutrophils # Man 13.0 K/mm3 (1.8-7.7) H 12/04/21 04:00 Band Neutrophils # 0.0 K/mm3 12/04/21 04:00 Lymphocytes # (Manual) 0.3 K/mm3 (1.2-5.4) L 12/04/21 04:00 Abs React Lymphs (Man) 0.0 K/mm3 12/04/21 04:00 Monocytes # (Manual) 0.0 K/mm3 (0.0-0.8) 12/04/21 04:00 Eosinophils # (Manual) 0.0 K/mm3 (0.0-0.4) 12/04/21 04:00 Basophils # (Manual) 0.0 K/mm3 (0.0-0.1) 12/04/21 04:00 Metamyelocytes # 0.0 K/mm3 12/04/21 04:00 Myelocytes # 0.0 K/mm3 12/04/21 04:00 Promyelocytes # 0.0 K/mm3 12/04/21 04:00 Blast Cells # 0.0 K/mm3 12/04/21 04:00 WBC Morphology Not Reportable 12/04/21 04:00 Hypersegmented Neuts Not Reportable 12/04/21 04:00 Hyposegmented Neuts Not Reportable 12/04/21 04:00 Hypogranular Neuts Not Reportable 12/04/21 04:00 Smudge Cells Not Reportable 12/04/21 04:00 Toxic Granulation Not Reportable 12/04/21 04:00 Toxic Vacuolation Not Reportable 12/04/21 04:00 Dohle Bodies Not Reportable 12/04/21 04:00 Pelger-Huet Anomaly Not Reportable 12/04/21 04:00 Gaurav Rods Not Reportable 12/04/21 04:00 Platelet Estimate Consistent w auto 12/04/21 04:00 Clumped Platelets Not Reportable 12/04/21 04:00 Plt Clumps, EDTA Not Reportable 12/04/21 04:00 Large Platelets Not Reportable 12/04/21 04:00 Giant Platelets Not Reportable 12/04/21 04:00 Platelet Satelliting Not Reportable 12/04/21 04:00 Plt Morphology Comment Not Reportable 12/04/21 04:00 RBC Morphology Not Reportable 12/04/21 04:00 Dimorphic RBCs Not Reportable 12/04/21 04:00 Polychromasia Not Reportable 12/04/21 04:00 Hypochromasia 1+ 12/04/21 04:00 Poikilocytosis Not Reportable 12/04/21 04:00 Anisocytosis 1+ 12/04/21 04:00 Microcytosis Not Reportable 12/04/21 04:00 Macrocytosis Not Reportable 12/04/21 04:00 Spherocytes Not Reportable 12/04/21 04:00 Pappenheimer Bodies Not Reportable 12/04/21 04:00 Sickle Cells Not Reportable 12/04/21 04:00 Target Cells Not Reportable 12/04/21 04:00 Tear Drop Cells Not Reportable 12/04/21 04:00 Ovalocytes Not Reportable 12/04/21 04:00 Helmet Cells Not Reportable 12/04/21 04:00 Castillo-Chester Bodies Not Reportable 12/04/21 04:00 [place] Rings Not Reportable 12/04/21 04:00 Lynnette Cells Not Reportable 12/04/21 04:00 Bite Cells Not Reportable 12/04/21 04:00 Crenated Cell Not Reportable 12/04/21 04:00 Elliptocytes Not Reportable 12/04/21 04:00 Acanthocytes (Spur) Not Reportable 12/04/21 04:00 Rouleaux Not Reportable 12/04/21 04:00 Hemoglobin C Crystals Not Reportable 12/04/21 04:00 Schistocytes Not Reportable 12/04/21 04:00 Malaria parasites Not Reportable 12/04/21 04:00 Richard Bodies Not Reportable 12/04/21 04:00 Hem Pathologist Commnt No 12/04/21 04:00 D-Dimer 1502.54 ng/mlDDU (0-234) H 12/03/21 09:49 ABG pH 7.408 pH Units (7.350-7.450) 12/04/21 17:50 POC ABG pCO2 38.6 mmHg (32.0-48.0) 12/04/21 03:32 ABG pCO2 31.0 mm Hg 12/04/21 17:50 POC ABG pO2 93.7 mmHg (83-108) 12/04/21 03:32 ABG pO2 178.7 mm Hg (80.0-90.0) H 12/04/21 17:50 POC ABG HCO3 18.1 12/04/21 03:32 ABG HCO3 19.1 mmol/L (20.0-26.0) L 12/04/21 17:50 ABG O2 Saturation 99.2 % (95.0-99.0) H 12/04/21 17:50 ABG O2 Content 15.5 (0.0-44) 12/04/21 17:50 POC ABG Base Excess -7.9 12/04/21 03:32 ABG Base Excess -4.7 mmol/L (-2.0-3.0) L 12/04/21 17:50 ABG Hemoglobin 11.1 gm/dl (12.0-16.0) L 12/04/21 17:50 ABG Oxyhemoglobin 95.8 (94-98) 12/04/21 03:32 ABG Carboxyhemoglobin 1.8 % (0.0-5.0) 12/04/21 17:50 ABG Methemoglobin 0.4 % (0.0-1.5) 12/04/21 17:50 Oxyhemoglobin 96.9 % (95.0-99.0) 12/04/21 17:50 Carboxyhemoglobin 1.1 (0.5-1.5) 12/04/21 03:32 FiO2 40 % 12/04/21 17:50 FiO2 % 40.0 12/04/21 03:32 Sodium 140 mmol/L (137-145) 12/05/21 05:30 Potassium 4.3 mmol/L (3.6-5.0) 12/05/21 05:30 Chloride 105.5 mmol/L (98-107) 12/05/21 05:30 Carbon Dioxide 18 mmol/L (22-30) L 12/05/21 05:30 Anion Gap 21 mmol/L 12/05/21 05:30 BUN 55 mg/dL (7-17) H 12/05/21 05:30 Creatinine 3.6 mg/dL (0.6-1.2) H 12/05/21 05:30 Estimated GFR 14 ml/min 12/05/21 05:30 BUN/Creatinine Ratio 15 % 12/05/21 05:30 Glucose 140 mg/dL (65-100) H 12/05/21 05:30 POC Glucose 86 mg/dL (70-105) 12/04/21 16:01 Lactic Acid 1.10 mmol/L (0.7-2.0) 12/03/21 17:50 Calcium 8.4 mg/dL (8.4-10.2) 12/05/21 05:30 Ferritin 171.6 ng/mL (10.0-200.0) 12/03/21 09:49 Total Bilirubin 0.60 mg/dL (0.1-1.2) 12/04/21 04:00 AST 16 units/L (5-40) 12/04/21 04:00 ALT 13 units/L (7-56) 12/04/21 04:00 Alkaline Phosphatase 87 units/L (35-129) 12/04/21 04:00 Lactate Dehydrogenase 496 units/L (91-180) H 12/03/21 09:49 Troponin T 0.022 ng/mL (0.00-0.029) 12/04/21 13:29 C-Reactive Protein 0.30 mg/dL (0.00-1.30) 12/03/21 09:49 NT-Pro-B Natriuret Pep 18046 pg/mL (0-450) H 12/03/21 13:26 Total Protein 6.6 g/dL (6.3-8.2) 12/04/21 04:00 Albumin 3.4 g/dL (3.9-5) L 12/04/21 04:00 Albumin/Globulin Ratio 1.1 % 12/04/21 04:00 Procalcitonin 0.06 ng/mL (<0.15) 12/03/21 09:49 Urine Color Yellow (Yellow) 12/04/21 08:35 Urine Turbidity Slightly-cloudy (Clear) 12/04/21 08:35 Urine pH 5.0 (5.0-7.0) 12/04/21 08:35 Ur Specific [place] 1.013 (1.003-1.030) 12/04/21 08:35 Urine Protein 100 mg/dl mg/dL (Negative) 12/04/21 08:35 Urine Glucose (UA) Neg mg/dL (Negative) 12/04/21 08:35 Urine Ketones Neg mg/dL (Negative) 12/04/21 08:35 Urine Blood Neg (Negative) 12/04/21 08:35 Urine Nitrite Neg (Negative) 12/04/21 08:35 Urine Bilirubin Neg (Negative) 12/04/21 08:35 Urine Urobilinogen < 2.0 mg/dL (<2.0) 12/04/21 08:35 Ur Leukocyte Esterase Lg (Negative) 12/04/21 08:35 Urine WBC (Auto) 43.0 /HPF (0.0-6.0) H 12/04/21 08:35 Urine RBC (Auto) 5.0 /HPF (0.0-6.0) 12/04/21 08:35 U Epithel Cells (Auto) < 1.0 /HPF (0-13.0) 12/04/21 08:35 Urine Bacteria (Auto) 1+ /HPF (Negative) 12/04/21 08:35 Hyaline Casts 1 /LPF 12/04/21 08:35 Urine Mucus Few /HPF 12/04/21 08:35 Urine Creatinine 208.5 mg/dL (0.1-20.0) H 12/04/21 08:35 Urine Sodium 20 mmol/L 12/04/21 08:35 Urine Opiates Screen Negative 12/03/21 Unknown Urine Methadone Screen Negative 12/03/21 Unknown Ur Barbiturates Screen Negative 12/03/21 Unknown Ur Phencyclidine Scrn Negative 12/03/21 Unknown Ur Amphetamines Screen Negative 12/03/21 Unknown U Benzodiazepines Scrn Negative 12/03/21 Unknown Urine Cocaine Screen Positive 12/03/21 Unknown U Marijuana (THC) Screen Negative 12/03/21 Unknown Drugs of Abuse Note Disclamer 12/03/21 Unknown SARS-CoV-2 (PCR) Negative (Negative) 12/03/21 10:29 Blood Type A NEGATIVE 12/03/21 17:50 Antibody Screen Negative 12/03/21 17:50 Microbiology: Microbiology 12/03/21 13:26 Peripheral/Venous Blood Culture - Preliminary NO GROWTH AFTER 24 HOURS 12/03/21 13:26 Peripheral/Venous Blood Culture - Preliminary NO GROWTH AFTER 24 HOURS Sen/IV: Voiding Method Indwelling Catheter Active Medications - Current Medications Current Medications: Generic Name Dose Route Start Last Admin Trade Name Freq PRN Reason Stop Dose Admin Acetaminophen 650 mg 12/03/21 16:50 Acetaminophen 325 Mg Tab PO Q6H PRN Pain, Mild (1-3) Albuterol 2.5 mg 12/03/21 13:12 Albuterol 2.5 Mg/3 Ml Nebu IH Q3HRT PRN Shortness Of Breath Diphenhydramine HCl 25 mg 12/05/21 10:59 Diphenhydramine 25 Mg Cap PO Q8H PRN Itching Famotidine 20 mg 12/04/21 10:00 12/05/21 10:49 Famotidine 20 Mg/2 Ml Inj IV 20 mg QDAY JOHN Administration Heparin Sodium (Porcine) 5,000 unit 12/03/21 22:00 12/05/21 10:48 Heparin 5,000 Unit/1 Ml Vial SUB-Q 5,000 unit Q12HR JOHN Administration Hydralazine HCl 50 mg 12/04/21 22:00 12/05/21 06:12 Hydralazine 25 Mg Tab PO 50 mg Q8HR JOHN Administration Hydralazine HCl 10 mg 12/04/21 18:00 12/05/21 10:48 Hydralazine 20 Mg/1 Ml Inj IV 12/06/21 17:59 10 mg Q4HR JOHN Administration Hydromorphone HCl 0.25 mg 12/03/21 13:12 Hydromorphone 1 Mg/1 Ml Inj IV Q4H PRN Pain, Moderate (4-6) Hydromorphone HCl 0.5 mg 12/03/21 13:12 12/05/21 03:49 Hydromorphone 1 Mg/1 Ml Inj IV 0.5 mg Q23H PRN Administration Pain , Severe (7-10) Hydrophilic Ointment 1 applic 12/03/21 17:48 Lip Therapy Vaseline TP Q2HR PRN Dry Lips Nicardipine/Sodium Chloride 40 mg in 200 mls @ 25 mls/hr 12/03/21 14:00 12/03/21 22:15 Cardene Drip 40 Mg/200 Ml IV Infused TITR [facility] Titration Protocol 5 MG/HR Methadone HCl 5 mg 12/05/21 22:00 Methadone 10 Mg Tab PO BID [facility] Methylprednisolone Sodium Succinate 40 mg 12/03/21 14:00 12/05/21 06:13 Methylprednisolone Sod Succinate 40 Mg/1 Ml Inj IV 40 mg Q8HR JOHN Administration Multi-Ingred Cream/Lotion/Oil/Oint 1 applic 12/03/21 17:48 Mineral Oil/Petrolatum, White Ophth Oint 3.5 Gm OU Q4HR PRN Dry Eye(s) Ondansetron HCl 4 mg 12/04/21 20:36 12/04/21 20:30 Ondansetron 4 Mg/2 Ml Inj IV 4 mg Q8H PRN Administration Nausea And Vomiting Oxycodone/Acetaminophen 1 tab 12/03/21 13:12 Oxycodone /Acetaminophen 5-325mg Tab PO Q16H PRN Pain, Moderate (4-6) Senna/Docusate Sodium 1 tab 12/03/21 22:00 12/05/21 10:48 Sennosides/Docusate Sodium 8.6/50 Mg Tab FEEDTUBE 1 tab BID JOHN Administration Sodium Chloride 10 ml 12/03/21 22:00 12/05/21 10:49 Sodium Chloride 0.9% 10 Ml Flush Syringe IV 10 ml BID JOHN Administration Sodium Chloride 10 ml 12/03/21 13:12 Sodium Chloride 0.9% 10 Ml Flush Syringe IV PRN PRN LINE FLUSH Nutrition/Malnutrition Assess - Dietary Evaluation Nutrition/Malnutrition Findings: Nutrition Notes Start: 12/04/21 11:58 Freq: Status: Active Protocol: Document 12/04/21 11:58 NELSON (Rec: 12/04/21 12:07 NELSON [id number]) Nutrition Notes Need for Assessment generated from: MD Order Initial or Follow up Assessment Current Diagnosis Acute Kidney Injury,Sepsis, Hypertension,Heart Failure, Respiratory Failure,Stroke Other Pertinent Diagnosis Bilat pneu, hypertensive emergency, encephalopathy, cocaine dependence Current Diet NPO Labs/Tests BUN 34 Cr 3 Pertinent Medications Vit C, Vit D3, Zn sulfate, Lasix, Solumedrol, Cardene gtt , Propofol at 1.497ml/hr ( provides 40 kcal) Height 5 ft 2 in Weight 58 kg [place] Body Weight (kg) 50.00 BMI 23.3 Weight Status Appropriate Subjective/Other Information RD consulted for TF; pt also screened for malnutrition risk . Pt on vent support. Burn Absent Trauma Absent Skin Integrity/Comment No skin breakdown reported Minimum of two criteria No Reduced Liquor Clerk Strength Measurably Reduced (severe) #1 Nutrition Diagnosis Inadequate oral intake [facility]ology [facility] As Evidenced by Signs and Symptoms pt NPO Is patient on ventilator? Yes Is Patient Ambulatory and/or Out of Bed No [place] 1435.236 Calculation [facility]ations [facility] Additional Notes Pro needs 1.2-2g/k-116g/ day Fluid needs 1ml/kcal Nutrition Intervention Nutrition Support: Osmolite 1.5 at 40ml/hr with 120ml water flush q4h. Kcal 1,440 Protein (gm) 60 Carbohydrates (gm) 195 Fat (gm) 47 Fluid (mL) 732 Fiber (gm) 0 Goal #1 TF tolerance Goal #2 TF to meet at least 75% energy and pro needs Anticipated Discharge Needs: Unable to identify at this time Follow-Up By: 12/07/21 Additional Comments F/U: new TF, vent status <JOY ROGEL E - Last Filed: 12/06/21 07:29> Assessment and Plan Assessment and plan: I saw and evaluated the patient. I agree with the findings and the plan of care as documented in the Nurse Practitioner's~note, with the following corrections and additions. Hypertensive urgency still persistent, will adjust BP meds. Monitor for asthma Counselling provided on substance abuse. Hospitalist Physical - Constitutional Vitals: Temp Pulse Resp BP Pulse Ox 98.6 F 75 20 190/116 92 12/06/21 03:55 12/06/21 03:55 12/06/21 03:55 12/06/21 03:55 12/06/21 03:55 HEART Score - HEART Score Troponin: Troponin T 0.022 ng/mL (0.00-0.029) 12/04/21 13:29 Results - Labs CBC & Chem 7: 12/05/21 05:30 12/05/21 05:30 Labs: Laboratory Last Values WBC 17.0 K/mm3 (4.5-11.0) H 12/05/21 05:30 RBC 4.62 M/mm3 (3.65-5.03) 12/05/21 05:30 Hgb 11.4 gm/dl (10.1-14.3) 12/05/21 05:30 Hct 36.2 % (30.3-42.9) 12/05/21 05:30 MCV 78 fl (79-97) L 12/05/21 05:30 MCH 25 pg (28-32) L 12/05/21 05:30 MCHC 32 % (30-34) 12/05/21 05:30 RDW 18.9 % (13.2-15.2) H 12/05/21 05:30 Plt Count 264 K/mm3 (140-440) 12/05/21 05:30 Add Manual Diff Complete 12/04/21 04:00 Total Counted 100 12/04/21 04:00 Seg Neutrophils % Plate Glass Installer Helper 12/04/21 04:00 Seg Neuts % (Manual) 98.0 % (40.0-70.0) H 12/04/21 04:00 Band Neutrophils % 0 % 12/04/21 04:00 Lymphocytes % (Manual) 2.0 % (13.4-35.0) L 12/04/21 04:00 Reactive Lymphs % (Man) 0 % 12/04/21 04:00 Monocytes % (Manual) 0 % (0.0-7.3) 12/04/21 04:00 Eosinophils % (Manual) 0 % (0.0-4.3) 12/04/21 04:00 Basophils % (Manual) 0 % (0.0-1.8) 12/04/21 04:00 Metamyelocytes % 0 % 12/04/21 04:00 Myelocytes % 0 % 12/04/21 04:00 Promyelocytes % 0 % 12/04/21 04:00 Blast Cells % 0 % 12/04/21 04:00 Nucleated RBC % Not Reportable 12/04/21 04:00 Seg Neutrophils # Man 13.0 K/mm3 (1.8-7.7) H 12/04/21 04:00 Band Neutrophils # 0.0 K/mm3 12/04/21 04:00 Lymphocytes # (Manual) 0.3 K/mm3 (1.2-5.4) L 12/04/21 04:00 Abs React Lymphs (Man) 0.0 K/mm3 12/04/21 04:00 Monocytes # (Manual) 0.0 K/mm3 (0.0-0.8) 12/04/21 04:00 Eosinophils # (Manual) 0.0 K/mm3 (0.0-0.4) 12/04/21 04:00 Basophils # (Manual) 0.0 K/mm3 (0.0-0.1) 12/04/21 04:00 Metamyelocytes # 0.0 K/mm3 12/04/21 04:00 Myelocytes # 0.0 K/mm3 12/04/21 04:00 Promyelocytes # 0.0 K/mm3 12/04/21 04:00 Blast Cells # 0.0 K/mm3 12/04/21 04:00 WBC Morphology Not Reportable 12/04/21 04:00 Hypersegmented Neuts Not Reportable 12/04/21 04:00 Hyposegmented Neuts Not Reportable 12/04/21 04:00 Hypogranular Neuts Not Reportable 12/04/21 04:00 Smudge Cells Not Reportable 12/04/21 04:00 Toxic Granulation Not Reportable 12/04/21 04:00 Toxic Vacuolation Not Reportable 12/04/21 04:00 Dohle Bodies Not Reportable 12/04/21 04:00 Pelger-Huet Anomaly Not Reportable 12/04/21 04:00 Gaurav Rods Not Reportable 12/04/21 04:00 Platelet Estimate Consistent w auto 12/04/21 04:00 Clumped Platelets Not Reportable 12/04/21 04:00 Plt Clumps, EDTA Not Reportable 12/04/21 04:00 Large Platelets Not Reportable 12/04/21 04:00 Giant Platelets Not Reportable 12/04/21 04:00 Platelet Satelliting Not Reportable 12/04/21 04:00 Plt Morphology Comment Not Reportable 12/04/21 04:00 RBC Morphology Not Reportable 12/04/21 04:00 Dimorphic RBCs Not Reportable 12/04/21 04:00 Polychromasia Not Reportable 12/04/21 04:00 Hypochromasia 1+ 12/04/21 04:00 Poikilocytosis Not Reportable 12/04/21 04:00 Anisocytosis 1+ 12/04/21 04:00 Microcytosis Not Reportable 12/04/21 04:00 Macrocytosis Not Reportable 12/04/21 04:00 Spherocytes Not Reportable 12/04/21 04:00 Pappenheimer Bodies Not Reportable 12/04/21 04:00 Sickle Cells Not Reportable 12/04/21 04:00 Target Cells Not Reportable 12/04/21 04:00 Tear Drop Cells Not Reportable 12/04/21 04:00 Ovalocytes Not Reportable 12/04/21 04:00 Helmet Cells Not Reportable 12/04/21 04:00 Castillo-Chester Bodies Not Reportable 12/04/21 04:00 [place] Rings Not Reportable 12/04/21 04:00 [place] Cells Not Reportable 12/04/21 04:00 Bite Cells Not Reportable 12/04/21 04:00 Crenated Cell Not Reportable 12/04/21 04:00 Elliptocytes Not Reportable 12/04/21 04:00 Acanthocytes (Spur) Not Reportable 12/04/21 04:00 Rouleaux Not Reportable 12/04/21 04:00 Hemoglobin C Crystals Not Reportable 12/04/21 04:00 Schistocytes Not Reportable 12/04/21 04:00 Malaria parasites Not Reportable 12/04/21 04:00 Richard Bodies Not Reportable 12/04/21 04:00 Hem Pathologist Commnt No 12/04/21 04:00 D-Dimer 1502.54 ng/mlDDU (0-234) H 12/03/21 09:49 ABG pH 7.408 pH Units (7.350-7.450) 12/04/21 17:50 POC ABG pCO2 38.6 mmHg (32.0-48.0) 12/04/21 03:32 ABG pCO2 31.0 mm Hg 12/04/21 17:50 POC ABG pO2 93.7 mmHg (83-108) 12/04/21 03:32 ABG pO2 178.7 mm Hg (80.0-90.0) H 12/04/21 17:50 POC ABG HCO3 18.1 12/04/21 03:32 ABG HCO3 19.1 mmol/L (20.0-26.0) L 12/04/21 17:50 ABG O2 Saturation 99.2 % (95.0-99.0) H 12/04/21 17:50 ABG O2 Content 15.5 (0.0-44) 12/04/21 17:50 POC ABG Base Excess -7.9 12/04/21 03:32 ABG Base Excess -4.7 mmol/L (-2.0-3.0) L 12/04/21 17:50 ABG Hemoglobin 11.1 gm/dl (12.0-16.0) L 12/04/21 17:50 ABG Oxyhemoglobin 95.8 (94-98) 12/04/21 03:32 ABG Carboxyhemoglobin 1.8 % (0.0-5.0) 12/04/21 17:50 ABG Methemoglobin 0.4 % (0.0-1.5) 12/04/21 17:50 Oxyhemoglobin 96.9 % (95.0-99.0) 12/04/21 17:50 Carboxyhemoglobin 1.1 (0.5-1.5) 12/04/21 03:32 FiO2 40 % 12/04/21 17:50 FiO2 % 40.0 12/04/21 03:32 Sodium 140 mmol/L (137-145) 12/05/21 05:30 Potassium 4.3 mmol/L (3.6-5.0) 12/05/21 05:30 Chloride 105.5 mmol/L (98-107) 12/05/21 05:30 Carbon Dioxide 18 mmol/L (22-30) L 12/05/21 05:30 Anion Gap 21 mmol/L 12/05/21 05:30 BUN 55 mg/dL (7-17) H 12/05/21 05:30 Creatinine 3.6 mg/dL (0.6-1.2) H 12/05/21 05:30 Estimated GFR 14 ml/min 12/05/21 05:30 BUN/Creatinine Ratio 15 % 12/05/21 05:30 Glucose 140 mg/dL (65-100) H 12/05/21 05:30 POC Glucose 86 mg/dL (70-105) 12/04/21 16:01 Lactic Acid 1.10 mmol/L (0.7-2.0) 12/03/21 17:50 Calcium 8.4 mg/dL (8.4-10.2) 12/05/21 05:30 Ferritin 171.6 ng/mL (10.0-200.0) 12/03/21 09:49 Total Bilirubin 0.60 mg/dL (0.1-1.2) 12/04/21 04:00 AST 16 units/L (5-40) 12/04/21 04:00 ALT 13 units/L (7-56) 12/04/21 04:00 Alkaline Phosphatase 87 units/L (35-129) 12/04/21 04:00 Lactate Dehydrogenase 496 units/L (91-180) H 12/03/21 09:49 Troponin T 0.022 ng/mL (0.00-0.029) 12/04/21 13:29 C-Reactive Protein 0.30 mg/dL (0.00-1.30) 12/03/21 09:49 NT-Pro-B Natriuret Pep 10143 pg/mL (0-450) H 12/03/21 13:26 Total Protein 6.6 g/dL (6.3-8.2) 12/04/21 04:00 Albumin 3.4 g/dL (3.9-5) L 12/04/21 04:00 Albumin/Globulin Ratio 1.1 % 12/04/21 04:00 Procalcitonin 0.06 ng/mL (<0.15) 12/03/21 09:49 Urine Color Yellow (Yellow) 12/04/21 08:35 Urine Turbidity Slightly-cloudy (Clear) 12/04/21 08:35 Urine pH 5.0 (5.0-7.0) 12/04/21 08:35 Ur Specific [place] 1.013 (1.003-1.030) 12/04/21 08:35 Urine Protein 100 mg/dl mg/dL (Negative) 12/04/21 08:35 Urine Glucose (UA) Neg mg/dL (Negative) 12/04/21 08:35 Urine Ketones Neg mg/dL (Negative) 12/04/21 08:35 Urine Blood Neg (Negative) 12/04/21 08:35 Urine Nitrite Neg (Negative) 12/04/21 08:35 Urine Bilirubin Neg (Negative) 12/04/21 08:35 Urine Urobilinogen < 2.0 mg/dL (<2.0) 12/04/21 08:35 Ur Leukocyte Esterase Lg (Negative) 12/04/21 08:35 Urine WBC (Auto) 43.0 /HPF (0.0-6.0) H 12/04/21 08:35 Urine RBC (Auto) 5.0 /HPF (0.0-6.0) 12/04/21 08:35 U Epithel Cells (Auto) < 1.0 /HPF (0-13.0) 12/04/21 08:35 Urine Bacteria (Auto) 1+ /HPF (Negative) 12/04/21 08:35 Hyaline Casts 1 /LPF 12/04/21 08:35 Urine Mucus Few /HPF 12/04/21 08:35 Urine Creatinine 208.5 mg/dL (0.1-20.0) H 12/04/21 08:35 Urine Sodium 20 mmol/L 12/04/21 08:35 Urine Opiates Screen Negative 12/03/21 Unknown Urine Methadone Screen Negative 12/03/21 Unknown Ur Barbiturates Screen Negative 12/03/21 Unknown Ur Phencyclidine Scrn Negative 12/03/21 Unknown Ur Amphetamines Screen Negative 12/03/21 Unknown U Benzodiazepines Scrn Negative 12/03/21 Unknown Urine Cocaine Screen Positive 12/03/21 Unknown U Marijuana (THC) Screen Negative 12/03/21 Unknown Drugs of Abuse Note Disclamer 12/03/21 Unknown SARS-CoV-2 (PCR) Negative (Negative) 12/03/21 10:29 Blood Type A NEGATIVE 12/03/21 17:50 Antibody Screen Negative 12/03/21 17:50 Microbiology: Microbiology 12/03/21 13:26 Peripheral/Venous Blood Culture - Preliminary NO GROWTH AFTER 48 HOURS 12/03/21 13:26 Peripheral/Venous Blood Culture - Preliminary NO GROWTH AFTER 48 HOURS 12/03/21 17:48 Tracheal Aspirate Sputum Culture - Preliminary Sen/IV: Voiding Method Indwelling Catheter Active Medications - Current Medications Current Medications: Generic Name Dose Route Start Last Admin Trade Name Freq PRN Reason Stop Dose Admin Acetaminophen 650 mg 12/03/21 16:50 Acetaminophen 325 Mg Tab PO Q6H PRN Pain, Mild (1-3) Albuterol 2.5 mg 12/03/21 13:12 Albuterol 2.5 Mg/3 Ml Nebu IH Q3HRT PRN Shortness Of Breath Diphenhydramine HCl 25 mg 12/05/21 12:00 Diphenhydramine 25 Mg Cap PO Q8H PRN Itching Famotidine 20 mg 12/04/21 10:00 12/05/21 10:49 Famotidine 20 Mg/2 Ml Inj IV 20 mg QDAY JOHN Administration Heparin Sodium (Porcine) 5,000 unit 12/03/21 22:00 12/05/21 21:39 Heparin 5,000 Unit/1 Ml Vial SUB-Q 5,000 unit Q12HR JOHN Administration Hydralazine HCl 100 mg 12/06/21 07:17 Hydralazine 25 Mg Tab PO Q8HR JOHN Hydralazine HCl 10 mg 12/06/21 07:17 Hydralazine 20 Mg/1 Ml Inj IV Q4HR PRN Hypertension Hydromorphone HCl 0.25 mg 12/03/21 13:12 Hydromorphone 1 Mg/1 Ml Inj IV Q4H PRN Pain, Moderate (4-6) Isosorbide Mononitrate 60 mg 12/06/21 07:17 Isosorbide Mononitrate Er 30 Mg Tab PO QDAY JOHN Methadone HCl 5 mg 12/05/21 14:00 12/05/21 21:39 Methadone 5 Mg Tab PO 5 mg TID JOHN Administration Multi-Ingred Cream/Lotion/Oil/Oint 1 applic 12/03/21 17:48 Mineral Oil/Petrolatum, White Ophth Oint 3.5 Gm OU Q4HR PRN Dry Eye(s) Ondansetron HCl 4 mg 12/04/21 20:36 12/04/21 20:30 Ondansetron 4 Mg/2 Ml Inj IV 4 mg Q8H PRN Administration Nausea And Vomiting Oxycodone/Acetaminophen 1 tab 12/03/21 13:12 12/05/21 15:23 Oxycodone /Acetaminophen 5-325mg Tab PO 1 tab Q16H PRN Administration Pain, Moderate (4-6) Prednisone 40 mg 12/06/21 10:00 Prednisone 20 Mg Tab PO QDAY JOHN Sodium Chloride 10 ml 12/03/21 22:00 12/05/21 21:40 Sodium Chloride 0.9% 10 Ml Flush Syringe IV 10 ml BID JOHN Administration Sodium Chloride 10 ml 12/03/21 13:12 Sodium Chloride 0.9% 10 Ml Flush Syringe IV PRN PRN LINE FLUSH Nutrition/Malnutrition Assess - Dietary Evaluation Nutrition/Malnutrition Findings: Nutrition Notes Start: 12/04/21 11:58 Freq: Status: Active Protocol: Document 12/04/21 11:58 NELSON (Rec: 12/04/21 12:07 NELSON [email or web address]) Nutrition Notes Need for Assessment generated from: MD Order Initial or Follow up Assessment Current Diagnosis Acute Kidney Injury,Sepsis, Hypertension,Heart Failure, Respiratory Failure,Stroke Other Pertinent Diagnosis Bilat pneu, hypertensive emergency, encephalopathy, cocaine dependence Current Diet NPO Labs/Tests BUN 34 Cr 3 Pertinent Medications Vit C, Vit D3, Zn sulfate, Lasix, Solumedrol, Cardene gtt , Propofol at 1.497ml/hr ( provides 40 kcal) Height 5 ft 2 in Weight 58 kg [place] Body Weight (kg) 50.00 BMI 23.3 Weight Status Appropriate Subjective/Other Information RD consulted for TF; pt also screened for malnutrition risk . Pt on vent support. Burn Absent Trauma Absent Skin Integrity/Comment No skin breakdown reported Minimum of two criteria No Reduced Liquor Clerk Strength Measurably Reduced (severe) #1 Nutrition Diagnosis Inadequate oral intake Etiology mech ventilation As Evidenced by Signs and Symptoms pt NPO Is patient on ventilator? Yes Is Patient Ambulatory and/or Out of Bed No REE-([facility]-confined to bed) 1435.236 Calculation Used for Recommendations [facility] Additional Notes Pro needs 1.2-2g/k-116g/ day Fluid needs 1ml/kcal Nutrition Intervention Nutrition Support: Osmolite 1.5 at 40ml/hr with 120ml water flush q4h. Kcal 1,440 Protein (gm) 60 Carbohydrates (gm) 195 Fat (gm) 47 Fluid (mL) 732 Fiber (gm) 0 Goal #1 TF tolerance Goal #2 TF to meet at least 75% energy and pro needs Anticipated Discharge Needs: Unable to identify at this time Follow-Up By: 12/07/21 Additional Comments F/U: new TF, vent status
--- NOTE | 2021-12-05 11:40 | Progress Note ---
Assessment and Plan Patient is a 40-year-old female with a past medical history of asthma, hypertension, CVA and cocaine dependence who presented to the ED yesterday for complaint of "I cannot breathe. Acute hypoxic respiratory failure-likely multifactorial Mild cardiomyopathy of unclear etiology Hypertensive crisis Recent cocaine abuse Pneumonia LILIYA AMS Asthma History of CVA Plan: Blood pressure is under much better control on Cardene drip -wean as tolerated We will add Imdur today Avoid beta-vivek for another 24 hours given positive cocaine in UDS No GALE or ARB's due to elevated creatinine Consider gentle diuresis only if okay with nephrology Withdrawal precautions Will follow Subjective Principal diagnosis: AHRF; HTNsive emergency; Pulmonary edema; AE-CHF; Asthma; Cocaine abuse Interval history: No complaints this morning. Mildly confused. Discussed with RN at bedside. Objective Vital Signs Temp Pulse Pulse Resp BP Pulse Ox 12/05/21 10:48 82 157/97 12/05/21 09:00 84 12/05/21 08:00 99.2 F 20 95 12/05/21 06:01 99 H 147/92 97 12/05/21 05:41 101 H 147/92 96 12/05/21 05:21 145 H 155/98 97 12/05/21 05:00 98.1 F 144 H 14 155/98 96 12/05/21 04:41 147 H 15 153/102 95 12/05/21 04:21 144 H 16 162/108 94 12/05/21 04:05 143 H 12 191/122 97 12/05/21 04:00 144 H 13 191/122 95 12/05/21 03:55 141 H 32 H 139/116 97 12/05/21 03:51 134 H 13 139/116 96 12/05/21 03:45 134 H 14 139/116 96 12/05/21 03:41 139 H 27 H 139/116 96 12/05/21 03:35 133 H 16 139/116 95 12/05/21 03:31 130 H 16 139/116 95 12/05/21 03:25 130 H 18 139/116 95 12/05/21 03:21 132 H 21 139/116 94 12/05/21 03:15 74 15 139/116 97 12/05/21 03:11 74 14 139/116 95 12/05/21 03:05 98 H 17 139/116 92 12/05/21 03:01 92 H 22 139/116 89 12/05/21 02:55 75 14 167/97 95 12/05/21 02:51 77 13 167/97 94 12/05/21 02:45 98 H 24 167/97 88 12/05/21 02:41 95 H 14 167/97 93 12/05/21 02:35 91 H 15 167/97 94 12/05/21 02:31 95 H 15 167/97 94 12/05/21 02:00 94 H 13 167/97 92 12/05/21 01:00 87 13 166/97 91 12/05/21 00:00 99.2 F 93 H 14 167/95 89 12/04/21 23:00 81 12 157/87 92 12/04/21 22:00 89 11 L 167/86 100 12/04/21 21:00 83 10 L 157/91 98 12/04/21 20:01 72 11 L 161/90 100 12/04/21 20:00 97.6 F 12/04/21 19:01 86 19 189/112 84 12/04/21 18:40 97 12/04/21 18:00 73 11 L 176/96 99 12/04/21 17:00 60 60 13 171/93 100 12/04/21 16:52 61 190/97 12/04/21 16:49 97.5 F L 12/04/21 16:00 78 17 185/105 100 12/04/21 15:06 63 135/60 98 12/04/21 15:00 52 L 19 179/91 100 12/04/21 14:46 50 L 183/101 12/04/21 14:00 56 L 20 182/116 100 12/04/21 13:00 59 L 59 L 20 151/88 98 12/04/21 12:00 50 L 20 154/88 98 - Physical Examination HEENT: Positive: Normocephaly Neuro: Positive: Other (Intubated and sedated unable to assess) Abdomen: Positive: Soft Skin: Negative: Rash, Suspicious Lesions Extremities: Present: upper extr. pulses, warm. Absent: edema - Labs and Meds CBC 12/05/21 Range/Units 05:30 WBC 17.0 H (4.5-11.0) K/mm3 RBC 4.62 (3.65-5.03) M/mm3 Hgb 11.4 (10.1-14.3) gm/dl Hct 36.2 (30.3-42.9) % Plt Count 264 (140-440) K/mm3 Comprehensive Metabolic Panel 12/05/21 Range/Units 05:30 Sodium 140 (137-145) mmol/L Potassium 4.3 (3.6-5.0) mmol/L Chloride 105.5 (98-107) mmol/L Carbon Dioxide 18 L (22-30) mmol/L BUN 55 H (7-17) mg/dL Creatinine 3.6 H (0.6-1.2) mg/dL Glucose 140 H (65-100) mg/dL Calcium 8.4 (8.4-10.2) mg/dL - Imaging and Cardiology EKG: report reviewed, image reviewed Echo: pending - EKG Sinus rhythms and dysrhythmias: sinus rhythm Repolarization changes or abnormalities: nonspecific abnormality, ST segment, and/or T wave - Allied health notes Allied health notes reviewed: nursing
[2021-12-05] MEDS ORDERED: diphenhydrAMINE 25 MG CAP PO PRN (12:00)
[2021-12-05] MEDS: METHADONE 5 MG TAB PO SCH ×2 (13:20→21:39)
--- NOTE | 2021-12-05 14:09 | Consultation ---
History of Present Illness - Reason for Consult Consult date: 12/05/21 acute renal failure Requesting physician: LUBA TROTTER - History of Present Illness Patient presents by ambulance secondary to shortness of breath. She has a history of asthma. She states that yesterday and last night she started having trouble breathing. It worsened throughout the night. She called EMS this morning. EMS reports the patient was tachycardic and tachypneic when they were present. She was wheezing with rhonchi in both lung dsouza. She was given albuterol 7.5 mg by nebulizer. They report that she had improved although she was still tachypneic. They report that her lungs had cleared. Patient does have asthma. She has been admitted before. She states that she was intubated "a long time ago." Patient denies recent fevers. She has had a dry cough. She has had no known coronavirus exposure, although she is not vaccinated against COVID. She did not get a flu shot. She has not had a pneumonia shot. ROS: Stated complaint: DIFFICULTY BREATHING Other details as noted in HPI Comment: All other systems reviewed and negative Constitutional: denies: fever Eyes: denies: vision change ENT: denies: epistaxis Respiratory: see HPI Cardiovascular: denies: chest pain Endocrine: denies: unexplained weight loss Gastrointestinal: denies: abdominal pain Genitourinary: denies: dysuria Musculoskeletal: denies: back pain Skin: denies: rash Neurological: denies: headache Hematological/Lymphatic: denies: easy bruising - Past Medical History Previous Medical History?: Yes Hx Hypertension: Yes Hx CVA: Yes Hx Congestive Heart Failure: Yes Hx Asthma: Yes - Family History Family history: asthma, hypertension - Social History Substance Use Type: Cocaine (Per EMS) Past History Past Medical History: hypertension, stroke Past Surgical History: No surgical history, Other (Reviewed) Social history: single, smoking, other (Substance abuse) Family history: diabetes, hypertension Medications and Allergies Allergies Allergy/AdvReac Type Severity Reaction Status Date / Time codeine Allergy Unknown Verified 12/03/21 08:36 peach Allergy Unknown Verified 12/03/21 08:36 Active Meds: Active Medications Acetaminophen (Acetaminophen 325 Mg Tab) 650 mg PO Q6H PRN PRN Reason: Pain, Mild (1-3) Albuterol (Albuterol 2.5 Mg/3 Ml Nebu) 2.5 mg IH Q3HRT PRN PRN Reason: Shortness Of Breath Diphenhydramine HCl (Diphenhydramine 25 Mg Cap) 25 mg PO Q8H PRN PRN Reason: Itching Famotidine (Famotidine 20 Mg/2 Ml Inj) 20 mg IV QDAY [facility] Last Admin: 12/05/21 10:49 Dose: 20 mg Heparin Sodium (Porcine) (Heparin 5,000 Unit/1 Ml Vial) 5,000 unit SUB-Q Q12HR [facility] Last Admin: 12/05/21 10:48 Dose: 5,000 unit Hydralazine HCl (Hydralazine 25 Mg Tab) 50 mg PO Q8HR [facility] Last Admin: 12/05/21 13:19 Dose: 50 mg Hydralazine HCl (Hydralazine 20 Mg/1 Ml Inj) 10 mg IV Q4HR [facility] Stop: 12/06/21 17:59 Last Admin: 12/05/21 10:48 Dose: 10 mg Hydromorphone HCl (Hydromorphone 1 Mg/1 Ml Inj) 0.25 mg IV Q4H PRN PRN Reason: Pain, Moderate (4-6) Hydromorphone HCl (Hydromorphone 1 Mg/1 Ml Inj) 0.5 mg IV Q23H PRN PRN Reason: Pain , Severe (7-10) Last Admin: 12/05/21 03:49 Dose: 0.5 mg Hydrophilic Ointment (Lip Therapy Vaseline) 1 applic TP Q2HR PRN PRN Reason: Dry Lips Nicardipine/Sodium Chloride (Cardene Drip 40 Mg/200 Ml) 40 mg in 200 mls @ 25 mls/hr IV TITR [facility]; Protocol Last Titration: 12/03/21 22:15 Dose: Infused Isosorbide Mononitrate (Isosorbide Mononitrate Er 30 Mg Tab) 30 mg PO QDAY [facility] Last Admin: 12/05/21 13:20 Dose: 30 mg Methadone HCl (Methadone 5 Mg Tab) 5 mg PO TID [facility] Last Admin: 12/05/21 13:20 Dose: 5 mg Methylprednisolone Sodium Succinate (Methylprednisolone Sod Succinate 40 Mg/1 Ml Inj) 40 mg IV Q8HR [facility] Last Admin: 12/05/21 13:20 Dose: 40 mg Multi-Ingred Cream/Lotion/Oil/Oint (Mineral Oil/Petrolatum, White Ophth Oint 3.5 Gm) 1 applic OU Q4HR PRN PRN Reason: Dry Eye(s) Ondansetron HCl (Ondansetron 4 Mg/2 Ml Inj) 4 mg IV Q8H PRN PRN Reason: Nausea And Vomiting Last Admin: 12/04/21 20:30 Dose: 4 mg Oxycodone/Acetaminophen (Oxycodone /Acetaminophen 5-325mg Tab) 1 tab PO Q16H PRN PRN Reason: Pain, Moderate (4-6) Senna/Docusate Sodium (Sennosides/Docusate Sodium 8.6/50 Mg Tab) 1 tab FEEDTUBE BID [facility] Last Admin: 12/05/21 10:48 Dose: 1 tab Sodium Chloride (Sodium Chloride 0.9% 10 Ml Flush Syringe) 10 ml IV BID [facility] Last Admin: 12/05/21 10:49 Dose: 10 ml Sodium Chloride (Sodium Chloride 0.9% 10 Ml Flush Syringe) 10 ml IV PRN PRN PRN Reason: LINE FLUSH Exam - Vital Signs Vital signs: Vital Signs Temp Pulse Resp BP Pulse Ox 98.1 F 105 H 20 244/169 97 12/03/21 08:31 12/03/21 08:31 12/03/21 08:31 12/03/21 08:31 12/03/21 08:31 - Physical Exam Narrative exam: General appearance: Present: severe distress - EENT Eyes: Present: miosis ENT: hearing decreased - Neck Neck: Present: supple, normal ROM - Respiratory Respiratory effort: labored, pursed lips, accessory muscle use, stridor Respiratory: bilateral: diminished, rhonchi - Cardiovascular Rhythm: other (Tachycardia) Heart Sounds: Present: S1 & S2. Absent: rub, click - Extremities Extremities: pulses symmetrical, No edema Peripheral Pulses: abnormal (Capillary refill greater than 3.5 seconds) - Abdominal General gastrointestinal: Present: soft, non-tender, non-distended, normal bowel sounds Female genitourinary: Present: normal - Integumentary Integumentary: Present: dry, clammy, decreased turgor - Musculoskeletal Musculoskeletal: generalized weakness - Psychiatric Psychiatric: no appropriate mood/affect, no intact judgment & insight, no memory intact - Neurologic Neurologic: CNII-XII intact, no focal deficits, moves all extremities, no gait normal Results - Lab Results 12/05/21 05:30 12/05/21 05:30 Most recent lab results ABG pH 7.408 pH Units (7.350-7.450) 12/04/21 17:50 ABG pCO2 31.0 mm Hg 12/04/21 17:50 ABG pO2 178.7 mm Hg (80.0-90.0) H 12/04/21 17:50 ABG HCO3 19.1 mmol/L (20.0-26.0) L 12/04/21 17:50 ABG O2 Saturation 99.2 % (95.0-99.0) H 12/04/21 17:50 Calcium 8.4 mg/dL (8.4-10.2) 12/05/21 05:30 Urine Creatinine 208.5 mg/dL (0.1-20.0) H 12/04/21 08:35 Urine Sodium 20 mmol/L 12/04/21 08:35 Assessment and Plan Impression: * LILIYA om unknown stage of CKD * HTN urgency * cocaine abuse * AMS * PNA * Pulm edema * Acute hypoxic resp failure * Asthma Plan: * follow up renal us and urine lytes * strict i/os daily lytes * cxr and ct chest noted, hold diuresis with incr creatinine and follow up * avoid nephrotoxins * 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
--- NOTE | 2021-12-05 14:25 | Progress Note ---
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 Absent: rub, click - Extremities Extremities: pulses symmetrical, No edema Peripheral Pulses: abnormal (Capillary refill greater than 3.5 seconds) - Abdominal General gastrointestinal: Present: soft, non-tender, non-distended, normal bowel sounds Female genitourinary: Present: normal - Integumentary Integumentary: Present: dry, clammy, decreased turgor - Musculoskeletal Musculoskeletal: generalized weakness - Psychiatric Psychiatric: no appropriate mood/affect, no intact judgment & insight, no memory intact - Neurologic Neurologic: CNII-XII intact, no focal deficits, moves all extremities, no gait normal Objective - Vital Signs Vital signs: Vital Signs - 12hr 12/05/21 12/05/21 12/05/21 02:31 02:35 02:41 Temperature Pulse Rate 95 H 91 H 95 H Respiratory 15 15 14 Rate Blood Pressure 167/97 167/97 167/97 O2 Sat by Pulse 94 94 93 Oximetry 12/05/21 12/05/21 12/05/21 02:45 02:51 02:55 Temperature Pulse Rate 98 H 77 75 Respiratory 24 13 14 Rate Blood Pressure 167/97 167/97 167/97 O2 Sat by Pulse 88 94 95 Oximetry 12/05/21 12/05/21 12/05/21 03:01 03:05 03:11 Temperature Pulse Rate 92 H 98 H 74 Respiratory 22 17 14 Rate Blood Pressure 139/116 139/116 139/116 O2 Sat by Pulse 89 92 95 Oximetry 12/05/21 12/05/21 12/05/21 03:15 03:21 03:25 Temperature Pulse Rate 74 132 H 130 H Respiratory 15 21 18 Rate Blood Pressure 139/116 139/116 139/116 O2 Sat by Pulse 97 94 95 Oximetry 12/05/21 12/05/21 12/05/21 03:31 03:35 03:41 Temperature Pulse Rate 130 H 133 H 139 H Respiratory 16 16 27 H Rate Blood Pressure 139/116 139/116 139/116 O2 Sat by Pulse 95 95 96 Oximetry 12/05/21 12/05/21 12/05/21 03:45 03:51 03:55 Temperature Pulse Rate 134 H 134 H 141 H Respiratory 14 13 32 H Rate Blood Pressure 139/116 139/116 139/116 O2 Sat by Pulse 96 96 97 Oximetry 12/05/21 12/05/21 12/05/21 04:00 04:05 04:21 Temperature Pulse Rate 144 H 143 H 144 H Respiratory 13 12 16 Rate Blood Pressure 191/122 191/122 162/108 O2 Sat by Pulse 95 97 94 Oximetry 12/05/21 12/05/21 12/05/21 04:41 05:00 05:21 Temperature 98.1 F Pulse Rate 147 H 144 H 145 H Respiratory 15 14 Rate Blood Pressure 153/102 155/98 155/98 O2 Sat by Pulse 95 96 97 Oximetry 12/05/21 12/05/21 12/05/21 05:41 06:01 06:21 Temperature Pulse Rate 101 H 99 H 91 H Respiratory 11 L Rate Blood Pressure 147/92 147/92 153/94 O2 Sat by Pulse 96 97 98 Oximetry 12/05/21 12/05/21 12/05/21 06:41 07:01 07:21 Temperature Pulse Rate 88 81 90 Respiratory 11 L 12 13 Rate Blood Pressure 157/93 171/69 171/69 O2 Sat by Pulse 98 93 98 Oximetry 12/05/21 12/05/21 12/05/21 07:41 08:00 08:21 Temperature 99.2 F Pulse Rate 95 H 74 82 Respiratory 14 13 Rate Blood Pressure 149/89 151/73 151/73 O2 Sat by Pulse 99 95 95 Oximetry 12/05/21 12/05/21 12/05/21 08:41 09:00 09:21 Temperature Pulse Rate 96 H 75 Respiratory 22 11 L Rate Blood Pressure 169/107 143/104 143/104 O2 Sat by Pulse 94 93 97 Oximetry 12/05/21 12/05/21 12/05/21 09:41 10:00 10:21 Temperature Pulse Rate 99 H 70 74 Respiratory 13 11 L 11 L Rate Blood Pressure 150/102 167/97 167/97 O2 Sat by Pulse 97 96 99 Oximetry 12/05/21 12/05/21 12/05/21 10:41 10:48 11:01 Temperature Pulse Rate 79 82 96 H Respiratory 12 22 Rate Blood Pressure 157/97 157/97 157/97 O2 Sat by Pulse 99 91 Oximetry 12/05/21 12/05/21 12/05/21 11:21 11:41 12:00 Temperature 98.8 F Pulse Rate 91 H 79 75 Respiratory 19 14 14 Rate Blood Pressure 157/97 169/83 159/90 O2 Sat by Pulse 90 93 92 Oximetry 12/05/21 12/05/21 12/05/21 12:21 12:41 13:00 Temperature Pulse Rate 94 H 130 H 96 H Respiratory 22 16 Rate Blood Pressure 159/90 159/90 O2 Sat by Pulse 92 93 Oximetry 12/05/21 12/05/21 12/05/21 13:01 13:19 13:20 Temperature Pulse Rate 133 H Respiratory 13 Rate Blood Pressure 159/90 176/130 176/130 O2 Sat by Pulse 95 Oximetry 12/05/21 12/05/21 13:21 13:41 Temperature Pulse Rate 136 H 100 H Respiratory 19 16 Rate Blood Pressure 176/130 173/130 O2 Sat by Pulse 92 92 Oximetry - Lab 12/05/21 05:30 12/05/21 05:30 Most recent lab results ABG pH 7.408 pH Units (7.350-7.450) 12/04/21 17:50 ABG pCO2 31.0 mm Hg 12/04/21 17:50 ABG pO2 178.7 mm Hg (80.0-90.0) H 12/04/21 17:50 ABG HCO3 19.1 mmol/L (20.0-26.0) L 12/04/21 17:50 ABG O2 Saturation 99.2 % (95.0-99.0) H 12/04/21 17:50 Calcium 8.4 mg/dL (8.4-10.2) 12/05/21 05:30 Urine Creatinine 208.5 mg/dL (0.1-20.0) H 12/04/21 08:35 Urine Sodium 20 mmol/L 12/04/21 08:35 Medications & Allergies - Medications Allergies/Adverse Reactions: Allergies codeine Allergy (Verified 12/03/21 08:36) Unknown peach Allergy (Verified 12/03/21 08:36) Unknown Active Medications: Generic Name Dose Route Start Last Admin Trade Name Freq PRN Reason Stop Dose Admin Acetaminophen 650 mg 12/03/21 16:50 Acetaminophen 325 Mg Tab PO Q6H PRN Pain, Mild (1-3) Albuterol 2.5 mg 12/03/21 13:12 Albuterol 2.5 Mg/3 Ml Nebu IH Q3HRT PRN Shortness Of Breath Diphenhydramine HCl 25 mg 12/05/21 12:00 Diphenhydramine 25 Mg Cap PO Q8H PRN Itching Famotidine 20 mg 12/04/21 10:00 12/05/21 10:49 Famotidine 20 Mg/2 Ml Inj IV 20 mg QDAY JOHN Administration Heparin Sodium (Porcine) 5,000 unit 12/03/21 22:00 12/05/21 10:48 Heparin 5,000 Unit/1 Ml Vial SUB-Q 5,000 unit Q12HR JOHN Administration Hydralazine HCl 50 mg 12/04/21 22:00 12/05/21 13:19 Hydralazine 25 Mg Tab PO 50 mg Q8HR JOHN Administration Hydralazine HCl 10 mg 12/04/21 18:00 12/05/21 10:48 Hydralazine 20 Mg/1 Ml Inj IV 12/06/21 17:59 10 mg Q4HR JOHN Administration Hydromorphone HCl 0.25 mg 12/03/21 13:12 Hydromorphone 1 Mg/1 Ml Inj IV Q4H PRN Pain, Moderate (4-6) Hydromorphone HCl 0.5 mg 12/03/21 13:12 12/05/21 03:49 Hydromorphone 1 Mg/1 Ml Inj IV 0.5 mg Q23H PRN Administration Pain , Severe (7-10) Hydrophilic Ointment 1 applic 12/03/21 17:48 Lip Therapy Vaseline TP Q2HR PRN Dry Lips Nicardipine/Sodium Chloride 40 mg in 200 mls @ 25 mls/hr 12/03/21 14:00 12/03/21 22:15 Cardene Drip 40 Mg/200 Ml IV Infused TITR JOHN Titration Protocol 5 MG/HR Isosorbide Mononitrate 30 mg 12/05/21 12:00 12/05/21 13:20 Isosorbide Mononitrate Er 30 Mg Tab PO 30 mg QDAY JOHN Administration Methadone HCl 5 mg 12/05/21 14:00 12/05/21 13:20 Methadone 5 Mg Tab PO 5 mg TID JOHN Administration Methylprednisolone Sodium Succinate 40 mg 12/03/21 14:00 12/05/21 13:20 Methylprednisolone Sod Succinate 40 Mg/1 Ml Inj IV 40 mg Q8HR JOHN Administration Multi-Ingred Cream/Lotion/Oil/Oint 1 applic 12/03/21 17:48 Mineral Oil/Petrolatum, White Ophth Oint 3.5 Gm OU Q4HR PRN Dry Eye(s) Ondansetron HCl 4 mg 12/04/21 20:36 12/04/21 20:30 Ondansetron 4 Mg/2 Ml Inj IV 4 mg Q8H PRN Administration Nausea And Vomiting Oxycodone/Acetaminophen 1 tab 12/03/21 13:12 Oxycodone /Acetaminophen 5-325mg Tab PO Q16H PRN Pain, Moderate (4-6) Senna/Docusate Sodium 1 tab 12/03/21 22:00 12/05/21 10:48 Sennosides/Docusate Sodium 8.6/50 Mg Tab FEEDTUBE 1 tab BID JOHN Administration Sodium Chloride 10 ml 12/03/21 22:00 12/05/21 10:49 Sodium Chloride 0.9% 10 Ml Flush Syringe IV 10 ml BID JOHN Administration Sodium Chloride 10 ml 12/03/21 13:12 Sodium Chloride 0.9% 10 Ml Flush Syringe IV PRN PRN LINE FLUSH
--- NOTE | 2021-12-05 14:36 | Progress Note ---
Assessment and Plan Acute hypoxemic respiratory failure s/p MVS Hypertensive emergency Flash pulmonary edema Polysubstance abuse HTN AE-CHF H/O CVA Asthma Leukocytosis Metabolic acidosis Oropharyngeal dysphagia Cocaine abuse - cardiology evaluation ongoing - prn gentle diuresis for edema / increased SOB - continue care as below otherwise for now; - supplemental oxygen for target O2 sat's > 90% acutely - aspiration precautions - prn bronchodilators with pulmonary hygiene per RT - continue accuchecks with glycemic control per SSI for target blood glucose of < 180 mg/dL; avoid hypoglycemia - avoid nephrotoxins, renally dose all medications - prn analgesia per pain score - Maintenance of sleep-wake cycle, avoid delirium - G.I. & VTE prophylaxis - PT/OT/ROM exercises - mobility protocols for pressure ulcer prophylaxis - Monitor hemodynamics closely - continue other care per attending / other consultants - discharge planning ongoing concurrently COVID SPECIFIC INTERVENTIONS - COVID-19 PCR test negative .... Re-evaluate in am & prn ... transfer to telemetry Subjective Date of service: 12/05/21 Principal diagnosis: AHRF; HTNsive emergency; Pulmonary edema; AE-CHF; Asthma; Cocaine abuse Interval history: Patient is seen today for: Acute hypoxemic respiratory failure; Hypertensive migel rgency; Pulmonary edema; AE-CHF; Asthma; Cocaine abuse Seen and examined at bedside; 24hour events reviewed; nursing and respiratory care staff consulted; no adverse overnight events reported to me; resting peacefully in bed; doing well post extubation; alert and appropriate; denies N/V/F/C Objective Vital Signs - 12hr 12/05/21 12/05/21 12/05/21 02:41 02:45 02:51 Temperature Pulse Rate 95 H 98 H 77 Respiratory 14 24 13 Rate Blood Pressure 167/97 167/97 167/97 O2 Sat by Pulse 93 88 94 Oximetry 12/05/21 12/05/21 12/05/21 02:55 03:01 03:05 Temperature Pulse Rate 75 92 H 98 H Respiratory 14 22 17 Rate Blood Pressure 167/97 139/116 139/116 O2 Sat by Pulse 95 89 92 Oximetry 12/05/21 12/05/21 12/05/21 03:11 03:15 03:21 Temperature Pulse Rate 74 74 132 H Respiratory 14 15 21 Rate Blood Pressure 139/116 139/116 139/116 O2 Sat by Pulse 95 97 94 Oximetry 12/05/21 12/05/21 12/05/21 03:25 03:31 03:35 Temperature Pulse Rate 130 H 130 H 133 H Respiratory 18 16 16 Rate Blood Pressure 139/116 139/116 139/116 O2 Sat by Pulse 95 95 95 Oximetry 12/05/21 12/05/21 12/05/21 03:41 03:45 03:51 Temperature Pulse Rate 139 H 134 H 134 H Respiratory 27 H 14 13 Rate Blood Pressure 139/116 139/116 139/116 O2 Sat by Pulse 96 96 96 Oximetry 12/05/21 12/05/21 12/05/21 03:55 04:00 04:05 Temperature Pulse Rate 141 H 144 H 143 H Respiratory 32 H 13 12 Rate Blood Pressure 139/116 191/122 191/122 O2 Sat by Pulse 97 95 97 Oximetry 12/05/21 12/05/21 12/05/21 04:21 04:41 05:00 Temperature 98.1 F Pulse Rate 144 H 147 H 144 H Respiratory 16 15 14 Rate Blood Pressure 162/108 153/102 155/98 O2 Sat by Pulse 94 95 96 Oximetry 12/05/21 12/05/21 12/05/21 05:21 05:41 06:01 Temperature Pulse Rate 145 H 101 H 99 H Respiratory Rate Blood Pressure 155/98 147/92 147/92 O2 Sat by Pulse 97 96 97 Oximetry 12/05/21 12/05/21 12/05/21 06:21 06:41 07:01 Temperature Pulse Rate 91 H 88 81 Respiratory 11 L 11 L 12 Rate Blood Pressure 153/94 157/93 171/69 O2 Sat by Pulse 98 98 93 Oximetry 12/05/21 12/05/21 12/05/21 07:21 07:41 08:00 Temperature 99.2 F Pulse Rate 90 95 H 74 Respiratory 13 14 13 Rate Blood Pressure 171/69 149/89 151/73 O2 Sat by Pulse 98 99 95 Oximetry 12/05/21 12/05/21 12/05/21 08:21 08:41 09:00 Temperature Pulse Rate 82 96 H Respiratory 22 Rate Blood Pressure 151/73 169/107 143/104 O2 Sat by Pulse 95 94 93 Oximetry 12/05/21 12/05/21 12/05/21 09:21 09:41 10:00 Temperature Pulse Rate 75 99 H 70 Respiratory 11 L 13 11 L Rate Blood Pressure 143/104 150/102 167/97 O2 Sat by Pulse 97 97 96 Oximetry 12/05/21 12/05/21 12/05/21 10:21 10:41 10:48 Temperature Pulse Rate 74 79 82 Respiratory 11 L 12 Rate Blood Pressure 167/97 157/97 157/97 O2 Sat by Pulse 99 99 Oximetry 12/05/21 12/05/21 12/05/21 11:01 11:21 11:41 Temperature Pulse Rate 96 H 91 H 79 Respiratory 22 19 14 Rate Blood Pressure 157/97 157/97 169/83 O2 Sat by Pulse 91 90 93 Oximetry 12/05/21 12/05/21 12/05/21 12:00 12:21 12:41 Temperature 98.8 F Pulse Rate 75 94 H 130 H Respiratory 14 22 16 Rate Blood Pressure 159/90 159/90 159/90 O2 Sat by Pulse 92 92 93 Oximetry 12/05/21 12/05/21 12/05/21 13:00 13:01 13:19 Temperature Pulse Rate 96 H 133 H Respiratory 13 Rate Blood Pressure 159/90 176/130 O2 Sat by Pulse 95 Oximetry 12/05/21 12/05/21 12/05/21 13:20 13:21 13:41 Temperature Pulse Rate 136 H 100 H Respiratory 19 16 Rate Blood Pressure 176/130 176/130 173/130 O2 Sat by Pulse 92 92 Oximetry Constitutional: no acute distress (sedated), other (middle aged female with normal respiratory effort at rest) Eyes: non-icteric ENT: oropharynx moist, other (ETT 24 cm YAMILET) Neck: supple, no lymphadenopathy, no JVD Effort: normal Ascultation: Bilateral: diminished breath sounds, rhonchi Percussion: Bilateral: not dull Cardiovascular: regular rate and rhythm Gastrointestinal: normoactive bowel sounds, soft, non-tender, non-distended Integumentary: normal Extremities: no cyanosis, no edema, pulses normal, no ischemia or petechiae Neurologic: normal mental status, non-focal exam (grossly), pupils equal and round, motor strength normal and Psychiatric: mood appropriate, affect normal CBC and BMP: 12/05/21 05:30 12/05/21 05:30 ABG, PT/INR, D-dimer: ABG ABG pH 7.408 pH Units (7.350-7.450) 12/04/21 17:50 POC ABG pCO2 38.6 mmHg (32.0-48.0) 12/04/21 03:32 ABG pCO2 31.0 mm Hg 12/04/21 17:50 POC ABG pO2 93.7 mmHg (83-108) 12/04/21 03:32 ABG pO2 178.7 mm Hg (80.0-90.0) H 12/04/21 17:50 POC ABG HCO3 18.1 12/04/21 03:32 ABG O2 Saturation 99.2 % (95.0-99.0) H 12/04/21 17:50 PT/INR, D-dimer D-Dimer 1502.54 ng/mlDDU (0-234) H 12/03/21 09:49 Abnormal lab findings: Abnormal Labs 12/03/21 12/03/21 12/03/21 09:49 09:49 09:49 WBC 13.1 H RBC 5.40 H MCV MCH 24 L RDW 18.3 H Seg Neuts % (Manual) 90.0 H Lymphocytes % (Manual) 5.0 L Seg Neutrophils # Man 11.8 H Lymphocytes # (Manual) 0.7 L D-Dimer ABG pH ABG pO2 ABG HCO3 ABG O2 Saturation ABG Base Excess ABG Hemoglobin Chloride Carbon Dioxide 18 L BUN 29 H Creatinine 2.7 H Glucose 108 H Lactate Dehydrogenase 496 H NT-Pro-B Natriuret Pep Albumin Urine WBC (Auto) Urine Creatinine 12/03/21 12/03/21 12/03/21 09:49 13:26 14:55 WBC RBC MCV MCH RDW Seg Neuts % (Manual) Lymphocytes % (Manual) Seg Neutrophils # Man Lymphocytes # (Manual) D-Dimer 1502.54 H ABG pH 7.348 L ABG pO2 211.1 H ABG HCO3 ABG O2 Saturation 99.3 H ABG Base Excess -4.8 L ABG Hemoglobin 11.9 L Chloride Carbon Dioxide BUN Creatinine Glucose Lactate Dehydrogenase NT-Pro-B Natriuret Pep 75405 H Albumin Urine WBC (Auto) Urine Creatinine 12/04/21 12/04/21 12/04/21 03:32 04:00 04:00 WBC 13.3 H RBC MCV MCH 24 L RDW 18.6 H Seg Neuts % (Manual) 98.0 H Lymphocytes % (Manual) 2.0 L Seg Neutrophils # Man 13.0 H Lymphocytes # (Manual) 0.3 L D-Dimer ABG pH 7.289 L ABG pO2 ABG HCO3 ABG O2 Saturation ABG Base Excess ABG Hemoglobin Chloride 107.4 H Carbon Dioxide 20 L BUN 34 H Creatinine 3.0 H Glucose 119 H Lactate Dehydrogenase NT-Pro-B Natriuret Pep Albumin 3.4 L Urine WBC (Auto) Urine Creatinine 12/04/21 12/04/21 12/04/21 08:35 08:35 17:50 WBC RBC MCV MCH RDW Seg Neuts % (Manual) Lymphocytes % (Manual) Seg Neutrophils # Man Lymphocytes # (Manual) D-Dimer ABG pH ABG pO2 178.7 H ABG HCO3 19.1 L ABG O2 Saturation 99.2 H ABG Base Excess -4.7 L ABG Hemoglobin 11.1 L Chloride Carbon Dioxide BUN Creatinine Glucose Lactate Dehydrogenase NT-Pro-B Natriuret Pep Albumin Urine WBC (Auto) 43.0 H Urine Creatinine 208.5 H 12/05/21 12/05/21 05:30 05:30 WBC 17.0 H RBC MCV 78 L MCH 25 L RDW 18.9 H Seg Neuts % (Manual) Lymphocytes % (Manual) Seg Neutrophils # Man Lymphocytes # (Manual) D-Dimer ABG pH ABG pO2 ABG HCO3 ABG O2 Saturation ABG Base Excess ABG Hemoglobin Chloride Carbon Dioxide 18 L BUN 55 H Creatinine 3.6 H Glucose 140 H Lactate Dehydrogenase NT-Pro-B Natriuret Pep Albumin Urine WBC (Auto) Urine Creatinine Chest x-ray: image reviewed (stable) Allied health notes reviewed: nursing
[2021-12-05] MEDS: oxyCODONE /ACETAMINOPHEN 5-325MG TAB PO PRN (15:23)
[2021-12-05] MEDS: ASCORBIC ACID 500 MG TAB PO SCH (18:19)
[2021-12-05] MEDS: ZINC SULFATE 220 MG CAP PO SCH (18:19)
[2021-12-05] MEDS: CHOLECALCIFEROL (VIT D3) 1000 UNIT (25 mcg) TAB PO SCH (18:19)
[2021-12-05] MEDS ORDERED: METHADONE 10 MG TAB PO SCH ×2 (22:00)
[2021-12-05] MEDS ORDERED: METHADONE 5 MG TAB PO SCH (22:00)
[2021-12-06] MEDS: hydrALAZINE 20 MG/1 ML INJ IV SCH ×2 (02:12→06:12)
[2021-12-06] MEDS: hydrALAZINE 25 MG TAB PO SCH (06:12)
[2021-12-06] MEDS ORDERED: hydrALAZINE 25 MG TAB PO SCH (07:17)
[2021-12-06 07:22] LABS: Hematocrit 36.8 % (30.3-42.9); Hemoglobin 11.4 gm/dl (10.1-14.3); Mean Corpuscular HGB Conc 31 % (30-34); Mean Corpuscular Volume 79 fl (79-97); Platelet Count 233 K/mm3 (140-440); Red Blood Count 4.69 M/mm3 (3.65-5.03); Red Cell Distribution Width 18.8 % (13.2-15.2)
[2021-12-06] MEDS: METHADONE 5 MG TAB PO SCH ×3 (07:28→21:31)
[2021-12-06] MEDS: oxyCODONE /ACETAMINOPHEN 5-325MG TAB PO PRN (07:29)
--- NOTE | 2021-12-06 07:40 | Progress Note ---
Assessment and Plan Assessment and plan: This is a 40-year-old female with past medical history of Asthma, HTN, CVA, and cocaine dependence admitted for acute hypoxemic respiratory failure secondary to bilateral pneumonia versus flash pulmonary edema and CHF exacerbation. #Acute Hypoxemic Respiratory Failure 12/02 #Bilateral Pneumonia vs Flash Pulmonary Edema #H/o Asthma - Intubated in the ED on 12/03 - 12/04 extubated, currently stable on RA - s/p IV antibiotics - sputum culture negative so far - CCM consulted, appreciate recommendations - Aspiration precaution HOB above 30 - Continue O2 supplementation and wean as tolerated - Continue SPO2 monitoring for SPO2 goal above 95% #Acute Kidney Injury - baseline is unknown - likely intrinsic renal vascular disease in the setting of uncontrolled high blood pressure - Nephrology following - Avoid nephrotoxins and renally dose medications #Heart failure with reduced ejection fraction #Hypertensive Emergency-resolved #Hypertension - ProBNP greater than 29K on admit and hypertensive - s/p cardene gtt - TTE showed LVEF 40 to 45% - Cardiology following - Strict I/O and daily weights - BP uncontrolled, started metoprolol tartrate 50mg BID and nifedipine 30mg qday - continue PRN hydralazine #Acute Encephalopathy-resolved #Cocaine dependence - UDS + cocaine - continue Methadone added TID - Avoid delirium - Psych consulted, restarted home medications #GI/DVT prophylaxis - Continue PPI- Pepcid - Continue AC- Heparin SubQ - SCD to bilateral lower extremities while in bed History Interval history: No acute events overnight. Patient states that she feels "terrible". She does not know why. Has no chest pain or shortness of breath. No other complaints at this time. Hospitalist Physical - Physical exam Narrative exam: GENERAL: Well-developed well-nourished. In no acute distress. HEENT: Normocephalic. Atraumatic. NECK: Supple. CHEST/LUNGS: CTAB on room air HEART/CARDIOVASCULAR: RRR. No murmur, rubs or gallops appreciated. ABDOMEN: +BS. NT/ND. SKIN: No rashes noted. NEURO: No focal motor deficit. Follows all commands. MUSCULOSKELETAL: No joint effusion EXTREMITIES: No cyanosis, clubbing or edema. PSYCH: Cooperative. - Constitutional Vitals: Temp Pulse Resp BP Pulse Ox 98.6 F 75 20 190/116 92 12/06/21 03:55 12/06/21 03:55 12/06/21 03:55 12/06/21 03:55 12/06/21 03:55 General appearance: Present: no acute distress HEART Score - HEART Score Troponin: Troponin T 0.022 ng/mL (0.00-0.029) 12/04/21 13:29 Results - Labs CBC & Chem 7: 12/06/21 06:40 12/06/21 06:40 Labs: Laboratory Last Values WBC 17.0 K/mm3 (4.5-11.0) H 12/05/21 05:30 RBC 4.62 M/mm3 (3.65-5.03) 12/05/21 05:30 Hgb 11.4 gm/dl (10.1-14.3) 12/05/21 05:30 Hct 36.2 % (30.3-42.9) 12/05/21 05:30 MCV 78 fl (79-97) L 12/05/21 05:30 MCH 25 pg (28-32) L 12/05/21 05:30 MCHC 32 % (30-34) 12/05/21 05:30 RDW 18.9 % (13.2-15.2) H 12/05/21 05:30 Plt Count 264 K/mm3 (140-440) 12/05/21 05:30 Add Manual Diff Complete 12/04/21 04:00 Total Counted 100 12/04/21 04:00 Seg Neutrophils % Assistant Health Educator 12/04/21 04:00 Seg Neuts % (Manual) 98.0 % (40.0-70.0) H 12/04/21 04:00 Band Neutrophils % 0 % 12/04/21 04:00 Lymphocytes % (Manual) 2.0 % (13.4-35.0) L 12/04/21 04:00 Reactive Lymphs % (Man) 0 % 12/04/21 04:00 Monocytes % (Manual) 0 % (0.0-7.3) 12/04/21 04:00 Eosinophils % (Manual) 0 % (0.0-4.3) 12/04/21 04:00 Basophils % (Manual) 0 % (0.0-1.8) 12/04/21 04:00 Metamyelocytes % 0 % 12/04/21 04:00 Myelocytes % 0 % 12/04/21 04:00 Promyelocytes % 0 % 12/04/21 04:00 Blast Cells % 0 % 12/04/21 04:00 Nucleated RBC % Not Reportable 12/04/21 04:00 Seg Neutrophils # Man 13.0 K/mm3 (1.8-7.7) H 12/04/21 04:00 Band Neutrophils # 0.0 K/mm3 12/04/21 04:00 Lymphocytes # (Manual) 0.3 K/mm3 (1.2-5.4) L 12/04/21 04:00 Abs React Lymphs (Man) 0.0 K/mm3 12/04/21 04:00 Monocytes # (Manual) 0.0 K/mm3 (0.0-0.8) 12/04/21 04:00 Eosinophils # (Manual) 0.0 K/mm3 (0.0-0.4) 12/04/21 04:00 Basophils # (Manual) 0.0 K/mm3 (0.0-0.1) 12/04/21 04:00 Metamyelocytes # 0.0 K/mm3 12/04/21 04:00 Myelocytes # 0.0 K/mm3 12/04/21 04:00 Promyelocytes # 0.0 K/mm3 12/04/21 04:00 Blast Cells # 0.0 K/mm3 12/04/21 04:00 WBC Morphology Not Reportable 12/04/21 04:00 Hypersegmented Neuts Not Reportable 12/04/21 04:00 Hyposegmented Neuts Not Reportable 12/04/21 04:00 Hypogranular Neuts Not Reportable 12/04/21 04:00 Smudge Cells Not Reportable 12/04/21 04:00 Toxic Granulation Not Reportable 12/04/21 04:00 Toxic Vacuolation Not Reportable 12/04/21 04:00 Dohle Bodies Not Reportable 12/04/21 04:00 Pelger-Huet Anomaly Not Reportable 12/04/21 04:00 Gaurav Rods Not Reportable 12/04/21 04:00 Platelet Estimate Consistent w auto 12/04/21 04:00 Clumped Platelets Not Reportable 12/04/21 04:00 Plt Clumps, EDTA Not Reportable 12/04/21 04:00 Large Platelets Not Reportable 12/04/21 04:00 Giant Platelets Not Reportable 12/04/21 04:00 Platelet Satelliting Not Reportable 12/04/21 04:00 Plt Morphology Comment Not Reportable 12/04/21 04:00 RBC Morphology Not Reportable 12/04/21 04:00 Dimorphic RBCs Not Reportable 12/04/21 04:00 Polychromasia Not Reportable 12/04/21 04:00 Hypochromasia 1+ 12/04/21 04:00 Poikilocytosis Not Reportable 12/04/21 04:00 Anisocytosis 1+ 12/04/21 04:00 Microcytosis Not Reportable 12/04/21 04:00 Macrocytosis Not Reportable 12/04/21 04:00 Spherocytes Not Reportable 12/04/21 04:00 Pappenheimer Bodies Not Reportable 12/04/21 04:00 Sickle Cells Not Reportable 12/04/21 04:00 Target Cells Not Reportable 12/04/21 04:00 Tear Drop Cells Not Reportable 12/04/21 04:00 Ovalocytes Not Reportable 12/04/21 04:00 Helmet Cells Not Reportable 12/04/21 04:00 [place] Bodies Not Reportable 12/04/21 04:00 [place] Rings Not Reportable 12/04/21 04:00 Lynnette Cells Not Reportable 12/04/21 04:00 Bite Cells Not Reportable 12/04/21 04:00 Crenated Cell Not Reportable 12/04/21 04:00 Elliptocytes Not Reportable 12/04/21 04:00 Acanthocytes (Spur) Not Reportable 12/04/21 04:00 Rouleaux Not Reportable 12/04/21 04:00 Hemoglobin C Crystals Not Reportable 12/04/21 04:00 Schistocytes Not Reportable 12/04/21 04:00 Malaria parasites Not Reportable 12/04/21 04:00 Richard Bodies Not Reportable 12/04/21 04:00 Hem Pathologist Commnt No 12/04/21 04:00 D-Dimer 1502.54 ng/mlDDU (0-234) H 12/03/21 09:49 ABG pH 7.408 pH Units (7.350-7.450) 12/04/21 17:50 POC ABG pCO2 38.6 mmHg (32.0-48.0) 12/04/21 03:32 ABG pCO2 31.0 mm Hg 12/04/21 17:50 POC ABG pO2 93.7 mmHg (83-108) 12/04/21 03:32 ABG pO2 178.7 mm Hg (80.0-90.0) H 12/04/21 17:50 POC ABG HCO3 18.1 12/04/21 03:32 ABG HCO3 19.1 mmol/L (20.0-26.0) L 12/04/21 17:50 ABG O2 Saturation 99.2 % (95.0-99.0) H 12/04/21 17:50 ABG O2 Content 15.5 (0.0-44) 12/04/21 17:50 POC ABG Base Excess -7.9 12/04/21 03:32 ABG Base Excess -4.7 mmol/L (-2.0-3.0) L 12/04/21 17:50 ABG Hemoglobin 11.1 gm/dl (12.0-16.0) L 12/04/21 17:50 ABG Oxyhemoglobin 95.8 (94-98) 12/04/21 03:32 ABG Carboxyhemoglobin 1.8 % (0.0-5.0) 12/04/21 17:50 ABG Methemoglobin 0.4 % (0.0-1.5) 12/04/21 17:50 Oxyhemoglobin 96.9 % (95.0-99.0) 12/04/21 17:50 Carboxyhemoglobin 1.1 (0.5-1.5) 12/04/21 03:32 FiO2 40 % 12/04/21 17:50 FiO2 % 40.0 12/04/21 03:32 Sodium 140 mmol/L (137-145) 12/05/21 05:30 Potassium 4.3 mmol/L (3.6-5.0) 12/05/21 05:30 Chloride 105.5 mmol/L (98-107) 12/05/21 05:30 Carbon Dioxide 18 mmol/L (22-30) L 12/05/21 05:30 Anion Gap 21 mmol/L 12/05/21 05:30 BUN 55 mg/dL (7-17) H 12/05/21 05:30 Creatinine 3.6 mg/dL (0.6-1.2) H 12/05/21 05:30 Estimated GFR 14 ml/min 12/05/21 05:30 BUN/Creatinine Ratio 15 % 12/05/21 05:30 Glucose 140 mg/dL (65-100) H 12/05/21 05:30 POC Glucose 86 mg/dL (70-105) 12/04/21 16:01 Lactic Acid 1.10 mmol/L (0.7-2.0) 12/03/21 17:50 Calcium 8.4 mg/dL (8.4-10.2) 12/05/21 05:30 Ferritin 171.6 ng/mL (10.0-200.0) 12/03/21 09:49 Total Bilirubin 0.60 mg/dL (0.1-1.2) 12/04/21 04:00 AST 16 units/L (5-40) 12/04/21 04:00 ALT 13 units/L (7-56) 12/04/21 04:00 Alkaline Phosphatase 87 units/L (35-129) 12/04/21 04:00 Lactate Dehydrogenase 496 units/L (91-180) H 12/03/21 09:49 Troponin T 0.022 ng/mL (0.00-0.029) 12/04/21 13:29 C-Reactive Protein 0.30 mg/dL (0.00-1.30) 12/03/21 09:49 NT-Pro-B Natriuret Pep 75296 pg/mL (0-450) H 12/03/21 13:26 Total Protein 6.6 g/dL (6.3-8.2) 12/04/21 04:00 Albumin 3.4 g/dL (3.9-5) L 12/04/21 04:00 Albumin/Globulin Ratio 1.1 % 12/04/21 04:00 Procalcitonin 0.06 ng/mL (<0.15) 12/03/21 09:49 Urine Color Yellow (Yellow) 12/04/21 08:35 Urine Turbidity Slightly-cloudy (Clear) 12/04/21 08:35 Urine pH 5.0 (5.0-7.0) 12/04/21 08:35 Ur Specific [place] 1.013 (1.003-1.030) 12/04/21 08:35 Urine Protein 100 mg/dl mg/dL (Negative) 12/04/21 08:35 Urine Glucose (UA) Neg mg/dL (Negative) 12/04/21 08:35 Urine Ketones Neg mg/dL (Negative) 12/04/21 08:35 Urine Blood Neg (Negative) 12/04/21 08:35 Urine Nitrite Neg (Negative) 12/04/21 08:35 Urine Bilirubin Neg (Negative) 12/04/21 08:35 Urine Urobilinogen < 2.0 mg/dL (<2.0) 12/04/21 08:35 Ur Leukocyte Esterase Lg (Negative) 12/04/21 08:35 Urine WBC (Auto) 43.0 /HPF (0.0-6.0) H 12/04/21 08:35 Urine RBC (Auto) 5.0 /HPF (0.0-6.0) 12/04/21 08:35 U Epithel Cells (Auto) < 1.0 /HPF (0-13.0) 12/04/21 08:35 Urine Bacteria (Auto) 1+ /HPF (Negative) 12/04/21 08:35 Hyaline Casts 1 /LPF 12/04/21 08:35 Urine Mucus Few /HPF 12/04/21 08:35 Urine Creatinine 208.5 mg/dL (0.1-20.0) H 12/04/21 08:35 Urine Sodium 20 mmol/L 12/04/21 08:35 Urine Opiates Screen Negative 12/03/21 Unknown Urine Methadone Screen Negative 12/03/21 Unknown Ur Barbiturates Screen Negative 12/03/21 Unknown Ur Phencyclidine Scrn Negative 12/03/21 Unknown Ur Amphetamines Screen Negative 12/03/21 Unknown U Benzodiazepines Scrn Negative 12/03/21 Unknown Urine Cocaine Screen Positive 12/03/21 Unknown U Marijuana (THC) Screen Negative 12/03/21 Unknown Drugs of Abuse Note Disclamer 12/03/21 Unknown SARS-CoV-2 (PCR) Negative (Negative) 12/03/21 10:29 Blood Type A NEGATIVE 12/03/21 17:50 Antibody Screen Negative 12/03/21 17:50 Microbiology: Microbiology 12/03/21 13:26 Peripheral/Venous Blood Culture - Preliminary NO GROWTH AFTER 48 HOURS 12/03/21 13:26 Peripheral/Venous Blood Culture - Preliminary NO GROWTH AFTER 48 HOURS 12/03/21 17:48 Tracheal Aspirate Sputum Culture - Preliminary Sen/IV: Voiding Method Indwelling Catheter Active Medications - Current Medications Current Medications: Generic Name Dose Route Start Last Admin Trade Name Freq PRN Reason Stop Dose Admin Acetaminophen 650 mg 12/03/21 16:50 Acetaminophen 325 Mg Tab PO Q6H PRN Pain, Mild (1-3) Albuterol 2.5 mg 12/03/21 13:12 Albuterol 2.5 Mg/3 Ml Nebu IH Q3HRT PRN Shortness Of Breath Diphenhydramine HCl 25 mg 12/05/21 12:00 Diphenhydramine 25 Mg Cap PO Q8H PRN Itching Famotidine 20 mg 12/04/21 10:00 12/05/21 10:49 Famotidine 20 Mg/2 Ml Inj IV 20 mg QDAY [facility] Administration Heparin Sodium (Porcine) 5,000 unit 12/03/21 22:00 12/05/21 21:39 Heparin 5,000 Unit/1 Ml Vial SUB-Q 5,000 unit Q12HR [facility] Administration Hydralazine HCl 100 mg 12/06/21 07:17 Hydralazine 25 Mg Tab PO Q8HR JOHN Hydralazine HCl 10 mg 12/06/21 07:17 Hydralazine 20 Mg/1 Ml Inj IV Q4HR PRN Hypertension Hydromorphone HCl 0.25 mg 12/03/21 13:12 Hydromorphone 1 Mg/1 Ml Inj IV Q4H PRN Pain, Moderate (4-6) Isosorbide Mononitrate 60 mg 12/06/21 07:17 Isosorbide Mononitrate Er 30 Mg Tab PO QDAY [facility] Methadone HCl 5 mg 12/05/21 14:00 12/06/21 07:28 Methadone 5 Mg Tab PO 5 mg TID [facility] Administration Multi-Ingred Cream/Lotion/Oil/Oint 1 applic 12/03/21 17:48 Mineral Oil/Petrolatum, White Ophth Oint 3.5 Gm OU Q4HR PRN Dry Eye(s) Nifedipine 30 mg 12/06/21 10:00 Nifedipine Xl 30 Mg Tab PO QDAY [facility] Ondansetron HCl 4 mg 12/04/21 20:36 12/04/21 20:30 Ondansetron 4 Mg/2 Ml Inj IV 4 mg Q8H PRN Administration Nausea And Vomiting Oxycodone/Acetaminophen 1 tab 12/03/21 13:12 12/06/21 07:29 Oxycodone /Acetaminophen 5-325mg Tab PO 1 tab Q16H PRN Administration Pain, Moderate (4-6) Prednisone 40 mg 12/06/21 10:00 Prednisone 20 Mg Tab PO QDAY JOHN Sodium Chloride 10 ml 12/03/21 22:00 12/05/21 21:40 Sodium Chloride 0.9% 10 Ml Flush Syringe IV 10 ml BID JOHN Administration Sodium Chloride 10 ml 12/03/21 13:12 Sodium Chloride 0.9% 10 Ml Flush Syringe IV PRN PRN LINE FLUSH Nutrition/Malnutrition Assess - Dietary Evaluation Nutrition/Malnutrition Findings: Nutrition Notes Start: 12/04/21 11:58 Freq: Status: Active Protocol: Document 12/04/21 11:58 [facility] (Rec: 12/04/21 12:07 [facility] [id number]) Nutrition Notes Need for Assessment generated from: MD Order Initial or Follow up Assessment Current Diagnosis Acute Kidney Injury,Sepsis, Hypertension,Heart Failure, Respiratory Failure,Stroke Other Pertinent Diagnosis Bilat pneu, hypertensive emergency, encephalopathy, cocaine dependence Current Diet NPO Labs/Tests BUN 34 Cr 3 Pertinent Medications Vit C, Vit D3, Zn sulfate, Lasix, Solumedrol, Cardene gtt , Propofol at 1.497ml/hr ( provides 40 kcal) Height 5 ft 2 in Weight 58 kg [place] Body Weight (kg) 50.00 BMI 23.3 Weight Status Appropriate Subjective/Other Information RD consulted for TF; pt also screened for malnutrition risk . Pt on vent support. 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 Yes Is Patient Ambulatory and/or Out of Bed No REE-([facility]-confined to bed) 2005.236 Calculation Used for Recommendations [facility] Additional Notes Pro needs 1.2-2g/k-116g/ day Fluid needs 1ml/kcal Nutrition Intervention Nutrition Support: Osmolite 1.5 at 40ml/hr with 120ml water flush q4h. Kcal 1,440 Protein (gm) 60 Carbohydrates (gm) 195 Fat (gm) 47 Fluid (mL) 732 Fiber (gm) 0 Goal #1 TF tolerance Goal #2 TF to meet at least 75% energy and pro needs Anticipated Discharge Needs: Unable to identify at this time Follow-Up By: 12/07/21 Additional Comments F/U: new TF, vent status
[2021-12-06 07:43] LABS: Calcium 8.7 mg/dL (8.4-10.2)
[2021-12-06] MEDS ORDERED: hydrALAZINE 20 MG/1 ML INJ IV PRN (08:00)
[2021-12-06] MEDS: predniSONE 20 MG TAB PO SCH (09:52)
[2021-12-06] MEDS: NIFEdipine XL 30 MG TAB PO SCH (09:52)
[2021-12-06] MEDS: FAMOTIDINE 20 MG TAB PO SCH (09:52)
[2021-12-06] MEDS: HEPARIN 5,000 UNIT/1 ML VIAL SUB-Q SCH ×2 (09:52→21:30)
--- NOTE | 2021-12-06 10:10 | Progress Note ---
Assessment and Plan Patient is a 40-year-old female with a past medical history of asthma, hypertension, CVA and cocaine dependence who presented to the ED yesterday for complaint of "I cannot breathe. Acute hypoxic respiratory failure-likely multifactorial Mild cardiomyopathy of unclear etiology Hypertensive crisis Recent cocaine abuse Pneumonia LILIYA AMS Asthma History of CVA Plan: Blood pressure needs better control We will add beta-vivek as it has been greater than 48 hours since cocaine positive UDS No GALE or ARB's due to elevated creatinine Withdrawal precautions Will follow Subjective Principal diagnosis: AHRF; HTNsive emergency; Pulmonary edema; AE-CHF; Asthma; Cocaine abuse Interval history: No complaints this morning. Objective Vital Signs Temp Pulse Resp BP Pulse Ox 12/06/21 07:24 98.0 F 87 16 187/108 93 12/06/21 03:55 98.6 F 75 20 190/116 92 12/05/21 23:37 98.3 F 80 18 194/115 90 12/05/21 22:00 18 95 12/05/21 19:35 98.1 F 74 18 164/99 99 12/05/21 18:34 94 H 12/05/21 18:11 163/86 94 12/05/21 18:00 77 14 163/86 93 12/05/21 17:51 82 34 H 174/107 95 12/05/21 17:48 78 174/107 12/05/21 17:41 80 12 174/107 95 12/05/21 17:30 91 H 15 174/107 93 12/05/21 17:21 87 16 158/137 91 12/05/21 17:11 75 17 158/137 93 12/05/21 17:01 94 H 19 158/137 94 12/05/21 16:51 94 H 21 159/88 94 12/05/21 16:41 76 16 159/88 96 12/05/21 16:30 76 15 159/88 94 12/05/21 16:21 81 17 154/87 93 12/05/21 16:00 99.1 F 81 19 154/87 95 12/05/21 15:41 82 19 166/96 94 12/05/21 15:21 79 15 183/102 95 12/05/21 15:01 94 H 23 183/102 94 12/05/21 14:41 86 20 175/103 93 12/05/21 14:37 83 175/103 12/05/21 14:21 90 18 179/107 94 12/05/21 14:01 91 H 16 179/107 93 12/05/21 13:41 100 H 16 173/130 92 12/05/21 13:21 136 H 19 176/130 92 12/05/21 13:20 176/130 12/05/21 13:19 176/130 12/05/21 13:01 133 H 13 159/90 95 12/05/21 13:00 96 H 12/05/21 12:41 130 H 16 159/90 93 12/05/21 12:21 94 H 22 159/90 92 12/05/21 12:00 98.8 F 75 14 159/90 92 12/05/21 11:41 79 14 169/83 93 12/05/21 11:21 91 H 19 157/97 90 12/05/21 11:01 96 H 22 157/97 91 12/05/21 10:48 82 157/97 12/05/21 10:41 79 12 157/97 99 12/05/21 10:21 74 11 L 167/97 99 - Physical Examination HEENT: Positive: Normocephaly Neuro: Positive: Other (Intubated and sedated unable to assess) Abdomen: Positive: Soft Skin: Negative: Rash, Suspicious Lesions Extremities: Present: upper extr. pulses, warm. Absent: edema - Labs and Meds CBC 12/06/21 Range/Units 06:40 WBC 11.9 H (4.5-11.0) K/mm3 RBC 4.69 (3.65-5.03) M/mm3 Hgb 11.4 (10.1-14.3) gm/dl Hct 36.8 (30.3-42.9) % Plt Count 233 (140-440) K/mm3 Comprehensive Metabolic Panel 12/06/21 Range/Units 06:40 Sodium 139 (137-145) mmol/L Potassium 3.7 (3.6-5.0) mmol/L Chloride 107.5 H (98-107) mmol/L Carbon Dioxide 17 L (22-30) mmol/L BUN 47 H (7-17) mg/dL Creatinine 3.2 H (0.6-1.2) mg/dL Glucose 98 (65-100) mg/dL Calcium 8.7 (8.4-10.2) mg/dL - Imaging and Cardiology EKG: report reviewed, image reviewed Echo: pending - EKG Sinus rhythms and dysrhythmias: sinus rhythm Repolarization changes or abnormalities: nonspecific abnormality, ST segment, and/or T wave - Allied health notes Allied health notes reviewed: nursing
--- NOTE | 2021-12-06 12:10 | Consultation ---
History of Present Illness - Reason for Consult Consult date: 12/06/21 Reason for consult: psychosis - Chief Complaint Chief complaint: I cant breathe - History of Present Psychiatric Illness The patient is a 41 year old female with history of schizophrenia and cocaine dependence who was consulted for psychosis. In my interview with the patient, she is calm, alert and orient x3. The The patient reports that she was admitted for SOB. she reports crack abuse which she states she last used about a week ago. She is non compliant with psychotropic medication, states she was on Paxil and Trazodone. The patient endorses being depressed but denies any current suicidal/homicidal ideation and denies hallucinations. Diagnoses: Schizophrenia, Cocaine use Suicide attempts or Self-harm behavior: Denies Prior psychiatric hospitalizations: Yes Substance Abuse history:Crack Previous psychiatric medications tried: Paxil, Trazodone Outpatient treatment: Yes PAST MEDICAL HISTORY: unknown Family Psychiatric History: None reported or documented SOCIAL HISTORY Marital Status: Single Living Arrangements: Homeless Employment Status: unemployed Access to guns/weapons: Denies Education: 12th grade History of Abuse: none reported Legal History: none reported REVIEW OF SYSTEMS Constitutional: Negative for weight loss ENT: Negative for stridor Respiratory: Negative for cough or hemoptysis All other systems reviewed and are negative MENTAL STATUS EXAMINATION General Appearance and Behavior: Age appropriate, good hygiene, wearing appropriate clothes, sleeping, cooperative Cooperation: Participating/engaged Psychomotor Behavior: None Mood: Depressed Affect and affective range: congruent with mood Thought Process: Goal directed Thought Content: Reality oriented Speech: Normal volume, Regular rate and rhythm, Suicidal Ideation: Denies Homicidal Ideation: Denies Hallucinations: Denies Delusions: None elicited Impulse Control: Unimpaired Insight and Judgment: Limited insight and good judgment, Memory: Normal, Attention: Normal Orientation: Alert, orientedx3 Assessment and Plan (1)Schizophrenia Current Visit: Yes Status: Acute Treatment Plan Continue home medications Paxil 20 mg po daily Trazodone 50mg po QHS Disposition: Do not recommend psychiatric inpatient admission at this time. [facility] will provide patient with psychiatric outpatient resources. Will sign off. Thank you for the consult. Medications and Allergies Medications and Allergies Allergies Allergy/AdvReac Type Severity Reaction Status Date / Time codeine Allergy Unknown Verified 12/03/21 08:36 peach Allergy Unknown Verified 12/03/21 08:36 Home Medications Medication Instructions Recorded Confirmed Last Taken Type PARoxetine [Paxil] 20 mg PO DAILY 30 Days #30 12/06/21 Unknown Rx traZODone [Desyrel] 50 mg PO QHS 30 Days #30 tab 12/06/21 Unknown Rx Active Meds: Active Medications Acetaminophen (Acetaminophen 325 Mg Tab) 650 mg PO Q6H PRN PRN Reason: Pain, Mild (1-3) Albuterol (Albuterol 2.5 Mg/3 Ml Nebu) 2.5 mg IH Q3HRT PRN PRN Reason: Shortness Of Breath Diphenhydramine HCl (Diphenhydramine 25 Mg Cap) 25 mg PO Q8H PRN PRN Reason: Itching Famotidine (Famotidine 20 Mg Tab) 20 mg PO DAILY [facility] Last Admin: 12/06/21 09:52 Dose: 20 mg Heparin Sodium (Porcine) (Heparin 5,000 Unit/1 Ml Vial) 5,000 unit SUB-Q Q12HR [facility] Last Admin: 12/06/21 09:52 Dose: 5,000 unit Hydralazine HCl (Hydralazine 20 Mg/1 Ml Inj) 10 mg IV Q4H PRN PRN Reason: Hypertension Hydralazine HCl (Hydralazine 100 Mg Tab) 100 mg PO Q8HR [facility] Hydromorphone HCl (Hydromorphone 1 Mg/1 Ml Inj) 0.25 mg IV Q4H PRN PRN Reason: Pain, Moderate (4-6) Isosorbide Mononitrate (Isosorbide Mononitrate Er 60 Mg Tab) 60 mg PO QDAY [facility] Last Admin: 12/06/21 09:52 Dose: 60 mg Methadone HCl (Methadone 5 Mg Tab) 5 mg PO TID [facility] Last Admin: 12/06/21 07:28 Dose: 5 mg Metoprolol Tartrate (Metoprolol Tartrate 25 Mg Tab) 25 mg PO BID [facility] Multi-Ingred Cream/Lotion/Oil/Oint (Mineral Oil/Petrolatum, White Ophth Oint 3.5 Gm) 1 applic OU Q4HR PRN PRN Reason: Dry Eye(s) Nifedipine (Nifedipine Xl 30 Mg Tab) 30 mg PO QDAY [facility] Last Admin: 12/06/21 09:52 Dose: 30 mg Ondansetron HCl (Ondansetron 4 Mg/2 Ml Inj) 4 mg IV Q8H PRN PRN Reason: Nausea And Vomiting Last Admin: 12/04/21 20:30 Dose: 4 mg Oxycodone/Acetaminophen (Oxycodone /Acetaminophen 5-325mg Tab) 1 tab PO Q16H PRN PRN Reason: Pain, Moderate (4-6) Last Admin: 12/06/21 07:29 Dose: 1 tab Prednisone (Prednisone 20 Mg Tab) 40 mg PO QDAY [facility] Last Admin: 12/06/21 09:52 Dose: 40 mg Sodium Chloride (Sodium Chloride 0.9% 10 Ml Flush Syringe) 10 ml IV BID [facility] Last Admin: 12/06/21 09:53 Dose: 10 ml Sodium Chloride (Sodium Chloride 0.9% 10 Ml Flush Syringe) 10 ml IV PRN PRN PRN Reason: LINE FLUSH Mental Status Exam - Vital signs Last Vital Signs Temp 98.0 F 12/06/21 07:24 Pulse 87 12/06/21 07:24 Resp 16 12/06/21 07:24 BP 187/108 12/06/21 07:24 Pulse Ox 93 12/06/21 07:24 Results Result Diagrams: 12/06/21 06:40 12/06/21 06:40 Abnormal lab results 12/06/21 12/06/21 Range/Units 06:40 06:40 WBC 11.9 H (4.5-11.0) K/mm3 MCH 24 L (28-32) pg RDW 18.8 H (13.2-15.2) % Chloride 107.5 H (98-107) mmol/L Carbon Dioxide 17 L (22-30) mmol/L BUN 47 H (7-17) mg/dL Creatinine 3.2 H (0.6-1.2) mg/dL All other labs normal.
[2021-12-06] MEDS: METOPROLOL TARTRATE 25 MG TAB PO SCH ×2 (12:15→21:30)
[2021-12-06] MEDS: PARoxetine 20 MG TAB PO SCH (14:06)
[2021-12-06] MEDS: hydrALAZINE 100 MG TAB PO SCH ×2 (14:06→21:31)
--- NOTE | 2021-12-06 15:09 | Progress Note ---
Assessment and Plan Acute hypoxemic respiratory failure s/p MVS Hypertensive emergency Flash pulmonary edema Polysubstance abuse HTN AE-CHF H/O CVA Asthma Leukocytosis Metabolic acidosis Oropharyngeal dysphagia Cocaine abuse - cardiology input noted - azotemia per nephrology (improving) - prn gentle diuresis for edema / increased SOB - continue care as below otherwise for now; - supplemental oxygen for target O2 sat's > 90% acutely - aspiration precautions - prn bronchodilators with pulmonary hygiene per RT - continue accuchecks with glycemic control per SSI for target blood glucose of < 180 mg/dL; avoid hypoglycemia - avoid nephrotoxins, renally dose all medications - prn analgesia per pain score - Maintenance of sleep-wake cycle, avoid delirium - G.I. & VTE prophylaxis - PT/OT/ROM exercises - mobility protocols for pressure ulcer prophylaxis - Monitor hemodynamics closely - continue other care per attending / other consultants - discharge planning ongoing concurrently COVID SPECIFIC INTERVENTIONS - COVID-19 PCR test negative .... Re-evaluate in am & prn Subjective Date of service: 12/06/21 Principal diagnosis: AHRF; HTNsive emergency; Pulmonary edema; AE-CHF; Asthma; Cocaine abuse Interval history: Patient is seen today for: Acute hypoxemic respiratory failure; Hypertensive emergency; Pulmonary edema; AE-CHF; Asthma; Cocaine abuse Seen and examined at bedside; 24hour events reviewed; nursing and respiratory care staff consulted; no adverse overnight events reported to me; resting peacefully in bed; just ate lunch; seen by Psych team; denies N/V/F/C or chest pain / SOB Objective Vital Signs - 12hr 12/06/21 12/06/21 12/06/21 03:55 07:24 11:23 Temperature 98.6 F 98.0 F 98.9 F Pulse Rate 75 87 67 Respiratory 20 16 16 Rate Blood Pressure 190/116 187/108 199/115 O2 Sat by Pulse 92 93 96 Oximetry 12/06/21 12/06/21 12:00 12:34 Temperature Pulse Rate 80 Respiratory Rate Blood Pressure O2 Sat by Pulse 97 Oximetry Constitutional: no acute distress (sedated), other (middle aged female with normal respiratory effort at rest) Eyes: non-icteric ENT: oropharynx moist, other (ETT 24 cm YAMILET) Neck: supple, no lymphadenopathy, no JVD Effort: normal Ascultation: Bilateral: diminished breath sounds, rhonchi Percussion: Bilateral: not dull Cardiovascular: regular rate and rhythm Gastrointestinal: normoactive bowel sounds, soft, non-tender, non-distended Integumentary: normal Extremities: no cyanosis, no edema, pulses normal, no ischemia or petechiae Neurologic: normal mental status, non-focal exam (grossly), pupils equal and round, motor strength normal and Psychiatric: mood appropriate, affect normal CBC and BMP: 12/06/21 06:40 12/06/21 06:40 ABG, PT/INR, D-dimer: ABG ABG pH 7.408 pH Units (7.350-7.450) 12/04/21 17:50 POC ABG pCO2 38.6 mmHg (32.0-48.0) 12/04/21 03:32 ABG pCO2 31.0 mm Hg 12/04/21 17:50 POC ABG pO2 93.7 mmHg (83-108) 12/04/21 03:32 ABG pO2 178.7 mm Hg (80.0-90.0) H 12/04/21 17:50 POC ABG HCO3 18.1 12/04/21 03:32 ABG O2 Saturation 99.2 % (95.0-99.0) H 12/04/21 17:50 PT/INR, D-dimer D-Dimer 1502.54 ng/mlDDU (0-234) H 12/03/21 09:49 Abnormal lab findings: Abnormal Labs 12/03/21 12/03/21 12/03/21 09:49 09:49 09:49 WBC 13.1 H RBC 5.40 H MCV MCH 24 L RDW 18.3 H Seg Neuts % (Manual) 90.0 H Lymphocytes % (Manual) 5.0 L Seg Neutrophils # Man 11.8 H Lymphocytes # (Manual) 0.7 L D-Dimer ABG pH ABG pO2 ABG HCO3 ABG O2 Saturation ABG Base Excess ABG Hemoglobin Chloride Carbon Dioxide 18 L BUN 29 H Creatinine 2.7 H Glucose 108 H Lactate Dehydrogenase 496 H NT-Pro-B Natriuret Pep Albumin Urine WBC (Auto) Urine Creatinine 12/03/21 12/03/21 12/03/21 09:49 13:26 14:55 WBC RBC MCV MCH RDW Seg Neuts % (Manual) Lymphocytes % (Manual) Seg Neutrophils # Man Lymphocytes # (Manual) D-Dimer 1502.54 H ABG pH 7.348 L ABG pO2 211.1 H ABG HCO3 ABG O2 Saturation 99.3 H ABG Base Excess -4.8 L ABG Hemoglobin 11.9 L Chloride Carbon Dioxide BUN Creatinine Glucose Lactate Dehydrogenase NT-Pro-B Natriuret Pep 12563 H Albumin Urine WBC (Auto) Urine Creatinine 12/04/21 12/04/21 12/04/21 03:32 04:00 04:00 WBC 13.3 H RBC MCV MCH 24 L RDW 18.6 H Seg Neuts % (Manual) 98.0 H Lymphocytes % (Manual) 2.0 L Seg Neutrophils # Man 13.0 H Lymphocytes # (Manual) 0.3 L D-Dimer ABG pH 7.289 L ABG pO2 ABG HCO3 ABG O2 Saturation ABG Base Excess ABG Hemoglobin Chloride 107.4 H Carbon Dioxide 20 L BUN 34 H Creatinine 3.0 H Glucose 119 H Lactate Dehydrogenase NT-Pro-B Natriuret Pep Albumin 3.4 L Urine WBC (Auto) Urine Creatinine 12/04/21 12/04/21 12/04/21 08:35 08:35 17:50 WBC RBC MCV MCH RDW Seg Neuts % (Manual) Lymphocytes % (Manual) Seg Neutrophils # Man Lymphocytes # (Manual) D-Dimer ABG pH ABG pO2 178.7 H ABG HCO3 19.1 L ABG O2 Saturation 99.2 H ABG Base Excess -4.7 L ABG Hemoglobin 11.1 L Chloride Carbon Dioxide BUN Creatinine Glucose Lactate Dehydrogenase NT-Pro-B Natriuret Pep Albumin Urine WBC (Auto) 43.0 H Urine Creatinine 208.5 H 12/05/21 12/05/21 12/06/21 05:30 05:30 06:40 WBC 17.0 H 11.9 H RBC MCV 78 L MCH 25 L 24 L RDW 18.9 H 18.8 H Seg Neuts % (Manual) Lymphocytes % (Manual) Seg Neutrophils # Man Lymphocytes # (Manual) D-Dimer ABG pH ABG pO2 ABG HCO3 ABG O2 Saturation ABG Base Excess ABG Hemoglobin Chloride Carbon Dioxide 18 L BUN 55 H Creatinine 3.6 H Glucose 140 H Lactate Dehydrogenase NT-Pro-B Natriuret Pep Albumin Urine WBC (Auto) Urine Creatinine 12/06/21 06:40 WBC RBC MCV MCH RDW Seg Neuts % (Manual) Lymphocytes % (Manual) Seg Neutrophils # Man Lymphocytes # (Manual) D-Dimer ABG pH ABG pO2 ABG HCO3 ABG O2 Saturation ABG Base Excess ABG Hemoglobin Chloride 107.5 H Carbon Dioxide 17 L BUN 47 H Creatinine 3.2 H Glucose Lactate Dehydrogenase NT-Pro-B Natriuret Pep Albumin Urine WBC (Auto) Urine Creatinine Allied health notes reviewed: nursing
--- NOTE | 2021-12-06 15:26 | Progress Note ---
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 Absent: rub, click - Extremities Extremities: pulses symmetrical, No edema Peripheral Pulses: abnormal (Capillary refill greater than 3.5 seconds) - Abdominal General gastrointestinal: Present: soft, non-tender, non-distended, normal bowel sounds Female genitourinary: Present: normal - Integumentary Integumentary: Present: dry, clammy, decreased turgor - Musculoskeletal Musculoskeletal: generalized weakness - Psychiatric Psychiatric: no appropriate mood/affect, no intact judgment & insight, no memory intact - Neurologic Neurologic: CNII-XII intact, no focal deficits, moves all extremities, no gait normal Objective - Vital Signs Vital signs: Vital Signs - 12hr 12/06/21 12/06/21 12/06/21 03:55 07:24 11:23 Temperature 98.6 F 98.0 F 98.9 F Pulse Rate 75 87 67 Respiratory 20 16 16 Rate Blood Pressure 190/116 187/108 199/115 O2 Sat by Pulse 92 93 96 Oximetry 12/06/21 12/06/21 12:00 12:34 Temperature Pulse Rate 80 Respiratory Rate Blood Pressure O2 Sat by Pulse 97 Oximetry - Lab 12/06/21 06:40 12/06/21 06:40 Most recent lab results ABG pH 7.408 pH Units (7.350-7.450) 12/04/21 17:50 ABG pCO2 31.0 mm Hg 12/04/21 17:50 ABG pO2 178.7 mm Hg (80.0-90.0) H 12/04/21 17:50 ABG HCO3 19.1 mmol/L (20.0-26.0) L 12/04/21 17:50 ABG O2 Saturation 99.2 % (95.0-99.0) H 12/04/21 17:50 Calcium 8.7 mg/dL (8.4-10.2) 12/06/21 06:40 Phosphorus 2.80 mg/dL (2.5-4.5) 12/06/21 06:40 Magnesium 2.30 mg/dL (1.7-2.3) 12/06/21 06:40 Urine Creatinine 208.5 mg/dL (0.1-20.0) H 12/04/21 08:35 Urine Sodium 20 mmol/L 12/04/21 08:35 Medications & Allergies - Medications Allergies/Adverse Reactions: Allergies codeine Allergy (Verified 12/03/21 08:36) Unknown peach Allergy (Verified 12/03/21 08:36) Unknown Home Medications: Home Medications Medication Instructions Recorded Confirmed Last Taken Type PARoxetine [Paxil] 20 mg PO DAILY 30 Days #30 12/06/21 Unknown Rx traZODone [Desyrel] 50 mg PO QHS 30 Days #30 tab 12/06/21 Unknown Rx Active Medications: Generic Name Dose Route Start Last Admin Trade Name Freq PRN Reason Stop Dose Admin Acetaminophen 650 mg 12/03/21 16:50 Acetaminophen 325 Mg Tab PO Q6H PRN Pain, Mild (1-3) Albuterol 2.5 mg 12/03/21 13:12 Albuterol 2.5 Mg/3 Ml Nebu IH Q3HRT PRN Shortness Of Breath Diphenhydramine HCl 25 mg 12/05/21 12:00 Diphenhydramine 25 Mg Cap PO Q8H PRN Itching Famotidine 20 mg 12/06/21 10:00 12/06/21 09:52 Famotidine 20 Mg Tab PO 20 mg DAILY JOHN Administration Heparin Sodium (Porcine) 5,000 unit 12/03/21 22:00 12/06/21 09:52 Heparin 5,000 Unit/1 Ml Vial SUB-Q 5,000 unit Q12HR JOHN Administration Hydralazine HCl 10 mg 12/06/21 08:00 12/06/21 12:16 Hydralazine 20 Mg/1 Ml Inj IV 10 mg Q4H PRN Administration Hypertension Hydralazine HCl 100 mg 12/06/21 14:00 12/06/21 14:06 Hydralazine 100 Mg Tab PO 100 mg Q8HR JOHN Administration Hydromorphone HCl 0.25 mg 12/03/21 13:12 Hydromorphone 1 Mg/1 Ml Inj IV Q4H PRN Pain, Moderate (4-6) Isosorbide Mononitrate 60 mg 12/06/21 10:00 12/06/21 09:52 Isosorbide Mononitrate Er 60 Mg Tab PO 60 mg QDAY JOHN Administration Methadone HCl 5 mg 12/05/21 14:00 12/06/21 14:06 Methadone 5 Mg Tab PO 5 mg TID JOHN Administration Metoprolol Tartrate 25 mg 12/06/21 11:00 12/06/21 12:15 Metoprolol Tartrate 25 Mg Tab PO 25 mg BID JOHN Administration Multi-Ingred Cream/Lotion/Oil/Oint 1 applic 12/03/21 17:48 Mineral Oil/Petrolatum, White Ophth Oint 3.5 Gm OU Q4HR PRN Dry Eye(s) Nifedipine 30 mg 12/06/21 10:00 12/06/21 09:52 Nifedipine Xl 30 Mg Tab PO 30 mg QDAY JOHN Administration Ondansetron HCl 4 mg 12/04/21 20:36 12/04/21 20:30 Ondansetron 4 Mg/2 Ml Inj IV 4 mg Q8H PRN Administration Nausea And Vomiting Oxycodone/Acetaminophen 1 tab 12/03/21 13:12 12/06/21 07:29 Oxycodone /Acetaminophen 5-325mg Tab PO 1 tab Q16H PRN Administration Pain, Moderate (4-6) Paroxetine HCl 20 mg 12/06/21 14:00 12/06/21 14:06 Paroxetine 20 Mg Tab PO 20 mg QDAY JOHN Administration Prednisone 40 mg 12/06/21 10:00 12/06/21 09:52 Prednisone 20 Mg Tab PO 40 mg QDAY JOHN Administration Sodium Bicarbonate 1,300 mg 12/06/21 16:00 Sodium Bicarbonate 650 Mg Tab PO BID JOHN Sodium Chloride 10 ml 12/03/21 22:00 12/06/21 09:53 Sodium Chloride 0.9% 10 Ml Flush Syringe IV 10 ml BID JOHN Administration Sodium Chloride 10 ml 12/03/21 13:12 Sodium Chloride 0.9% 10 Ml Flush Syringe IV PRN PRN LINE FLUSH Trazodone HCl 50 mg 12/06/21 22:00 Trazodone 50 Mg Tab PO QHS JOHN
[2021-12-06] MEDS: SODIUM BICARBONATE 650 MG TAB PO SCH ×2 (17:36→21:30)
[2021-12-06] MEDS: traZODone 50 MG TAB PO SCH (21:30)
[2021-12-06] MEDS: cloNIDine 0.1 MG TAB PO SCH (21:31)
[2021-12-07] MEDS: hydrALAZINE 100 MG TAB PO SCH ×3 (06:35→21:17)
[2021-12-07 07:28] LABS: Calcium 8.1 mg/dL (8.4-10.2)
--- NOTE | 2021-12-07 09:55 | XRay Report ---
CHEST 1 VIEW INDICATION: shortness of breath. COMPARISON: 12/05/2021 FINDINGS: Support devices: None. Heart: Decreased heart size. Heart size appears borderline on today's exam. Lungs/Pleura: The lungs remain generally clear with no evidence for pneumonia, pleural effusion or pn eumothorax. Additional findings: None. IMPRESSION: Borderline heart size. Lungs clear. Signer Name: Leif Henson Jr, MD Signed: 12/07/2021 9:51 AM Workstation Name: [id number]
[2021-12-07] MEDS: METOPROLOL TARTRATE 25 MG TAB PO SCH ×2 (10:16→21:16)
[2021-12-07] MEDS: SODIUM BICARBONATE 650 MG TAB PO SCH ×2 (10:17→21:16)
[2021-12-07] MEDS: predniSONE 20 MG TAB PO SCH (10:17)
[2021-12-07] MEDS: cloNIDine 0.1 MG TAB PO SCH ×3 (10:17→21:15)
[2021-12-07] MEDS: NIFEdipine XL 30 MG TAB PO SCH (10:17)
[2021-12-07] MEDS: FAMOTIDINE 20 MG TAB PO SCH (10:17)
--- NOTE | 2021-12-07 10:23 | Progress Note ---
Assessment and Plan Impression: * LILIYA om unknown stage of CKD * HTN urgency * cocaine abuse * AMS * PNA * Pulm edema * Acute hypoxic resp failure * Asthma Plan: * Renal function is slowly improving. Patient is also currently nonoliguric. * Her blood pressures under much better control today. 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 Denies any shortness of breath. Currently on room air. No nausea vomiting or diarrhea. Objective - Vital Signs Vital signs: Vital Signs - 12hr 12/06/21 12/07/21 12/07/21 23:23 03:29 07:33 Temperature 98.0 F 98.3 F 98.0 F Pulse Rate 52 L 57 L 60 Respiratory 18 19 18 Rate Blood Pressure 142/70 158/85 135/88 O2 Sat by Pulse 96 93 99 Oximetry - General Appearance General appearance: well-developed, well-nourished, appears stated age EENT: PERRL, mucous membranes moist Neck: no JVD, no thyromegaly, no carotid bruit, supple Respiratory: Present: Clear to Ascultation Cardiology: regular, normal heart rate, S1S2, no murmurs Gastrointestinal: normal, normoactive bowel sounds Integumentary: no rash, other (No edema) - Lab 12/06/21 06:40 12/07/21 06:36 Most recent lab results ABG pH 7.408 pH Units (7.350-7.450) 12/04/21 17:50 ABG pCO2 31.0 mm Hg 12/04/21 17:50 ABG pO2 178.7 mm Hg (80.0-90.0) H 12/04/21 17:50 ABG HCO3 19.1 mmol/L (20.0-26.0) L 12/04/21 17:50 ABG O2 Saturation 99.2 % (95.0-99.0) H 12/04/21 17:50 Calcium 8.1 mg/dL (8.4-10.2) L 12/07/21 06:36 Phosphorus 2.80 mg/dL (2.5-4.5) 12/06/21 06:40 Magnesium 2.30 mg/dL (1.7-2.3) 12/06/21 06:40 Urine Creatinine 208.5 mg/dL (0.1-20.0) H 12/04/21 08:35 Urine Sodium 20 mmol/L 12/04/21 08:35 Medications & Allergies - Medications Allergies/Adverse Reactions: Allergies codeine Allergy (Verified 12/03/21 08:36) Unknown peach Allergy (Verified 12/03/21 08:36) Unknown Home Medications: Home Medications Medication Instructions Recorded Confirmed Last Taken Type PARoxetine [Paxil] 20 mg PO DAILY 30 Days #30 12/06/21 Unknown Rx traZODone [Desyrel] 50 mg PO QHS 30 Days #30 tab 12/06/21 Unknown Rx Active Medications: Generic Name Dose Route Start Last Admin Trade Name Freq PRN Reason Stop Dose Admin Acetaminophen 650 mg 12/03/21 16:50 Acetaminophen 325 Mg Tab PO Q6H PRN Pain, Mild (1-3) Albuterol 2.5 mg 12/03/21 13:12 Albuterol 2.5 Mg/3 Ml Nebu IH Q3HRT PRN Shortness Of Breath Clonidine HCl 0.1 mg 12/06/21 20:00 12/07/21 10:17 Clonidine 0.1 Mg Tab PO 0.1 mg TID JOHN Administration Diphenhydramine HCl 25 mg 12/05/21 12:00 12/06/21 21:39 Diphenhydramine 25 Mg Cap PO 25 mg Q8H PRN Administration Itching Famotidine 20 mg 12/06/21 10:00 12/07/21 10:17 Famotidine 20 Mg Tab PO 20 mg DAILY JOHN Administration Heparin Sodium (Porcine) 5,000 unit 12/03/21 22:00 12/06/21 21:30 Heparin 5,000 Unit/1 Ml Vial SUB-Q 5,000 unit Q12HR JOHN Administration Hydralazine HCl 10 mg 12/06/21 08:00 12/06/21 12:16 Hydralazine 20 Mg/1 Ml Inj IV 10 mg Q4H PRN Administration Hypertension Hydralazine HCl 100 mg 12/06/21 14:00 12/07/21 06:35 Hydralazine 100 Mg Tab PO 100 mg Q8HR JOHN Administration Hydromorphone HCl 0.25 mg 12/03/21 13:12 Hydromorphone 1 Mg/1 Ml Inj IV Q4H PRN Pain, Moderate (4-6) Isosorbide Mononitrate 60 mg 12/06/21 10:00 12/07/21 10:17 Isosorbide Mononitrate Er 60 Mg Tab PO 60 mg QDAY JOHN Administration Methadone HCl 5 mg 12/05/21 14:00 12/06/21 21:31 Methadone 5 Mg Tab PO 5 mg TID JOHN Administration Metoprolol Tartrate 25 mg 12/06/21 11:00 12/07/21 10:16 Metoprolol Tartrate 25 Mg Tab PO 25 mg BID JOHN Administration Multi-Ingred Cream/Lotion/Oil/Oint 1 applic 12/03/21 17:48 Mineral Oil/Petrolatum, White Ophth Oint 3.5 Gm OU Q4HR PRN Dry Eye(s) Nifedipine 30 mg 12/06/21 10:00 12/07/21 10:17 Nifedipine Xl 30 Mg Tab PO 30 mg QDAY JOHN Administration Ondansetron HCl 4 mg 12/04/21 20:36 12/04/21 20:30 Ondansetron 4 Mg/2 Ml Inj IV 4 mg Q8H PRN Administration Nausea And Vomiting Oxycodone/Acetaminophen 1 tab 12/03/21 13:12 12/06/21 07:29 Oxycodone /Acetaminophen 5-325mg Tab PO 1 tab Q16H PRN Administration Pain, Moderate (4-6) Paroxetine HCl 20 mg 12/06/21 14:00 12/06/21 14:06 Paroxetine 20 Mg Tab PO 20 mg QDAY JOHN Administration Prednisone 40 mg 12/06/21 10:00 12/07/21 10:17 Prednisone 20 Mg Tab PO 40 mg QDAY JOHN Administration Sodium Bicarbonate 1,300 mg 12/06/21 17:00 12/07/21 10:17 Sodium Bicarbonate 650 Mg Tab PO 1,300 mg BID JOHN Administration Sodium Chloride 10 ml 12/03/21 22:00 12/06/21 21:33 Sodium Chloride 0.9% 10 Ml Flush Syringe IV 10 ml BID JOHN Administration Sodium Chloride 10 ml 12/03/21 13:12 Sodium Chloride 0.9% 10 Ml Flush Syringe IV PRN PRN LINE FLUSH Trazodone HCl 50 mg 12/06/21 22:00 12/06/21 21:30 Trazodone 50 Mg Tab PO 50 mg QHS JOHN Administration
[2021-12-07] MEDS: METHADONE 5 MG TAB PO SCH ×3 (10:25→21:14)
[2021-12-07] MEDS: HEPARIN 5,000 UNIT/1 ML VIAL SUB-Q SCH ×2 (10:26→21:17)
[2021-12-07] MEDS: PARoxetine 20 MG TAB PO SCH (10:33)
--- NOTE | 2021-12-07 11:15 | Progress Note ---
Assessment and Plan Patient is a 40-year-old female with a past medical history of asthma, hypertension, CVA and cocaine dependence who presented to the ED yesterday for complaint of "I cannot breathe. Acute hypoxic respiratory failure-pulmonology following Pneumonia Pulmonary edema LILIYA-nephrology following HFrEF Hypertensive emergency s/p Cardene drip AMS Asthma History of CVA Cocaine dependency Echo 12/03/2021-EF 40 to 45%. LV mildly dilated. Mild LVH with impaired relaxation pattern. Mild global hypokinesis of LV. Right ventricle systolic function is normal. Left atrium is mildly dilated. Moderate mitral regurgitation Plan: Currently on clonidine 0.1 mg p.o. 3 times daily, hydralazine 100 mg p.o. every 8 hours, Imdur 60 mg p.o. daily, metoprolol 25 mg p.o. twice daily, nifedipine 30 mg p.o. daily No GALE/ARB due to elevated creatinine BP is better controlled. Continue present management Due to reduced EF plan for Lexiscan stress test in the a.m. N.p.o. after Patient seen in conjunction with Dr. Beyer who agrees with this plan of care - Patient Problems (1) LILIYA (acute kidney injury) Current Visit: Yes Status: Acute (2) Acute hypoxemic respiratory failure Current Visit: Yes Status: Acute (3) Bilateral pneumonia Current Visit: Yes Status: Acute Qualifiers: Pneumonia type: due to unspecified organism Lung location: lower lobe of lung Qualified Code(s): J18.9 - Pneumonia, unspecified organism (4) CHF (congestive heart failure) Current Visit: Yes Status: Acute Qualifiers: Heart failure chronicity: acute on chronic (5) Cocaine dependence Current Visit: Yes Status: Acute (6) Hypertensive emergency Current Visit: Yes Status: Acute (7) Hypertensive encephalopathy Current Visit: Yes Status: Acute (8) Pulmonary edema Current Visit: Yes Status: Acute Qualifiers: Chronicity: acute Qualified Code(s): J81.0 - Acute pulmonary edema (9) Sepsis Current Visit: Yes Status: Acute Qualifiers: Acute respiratory failure type: with hypoxia Subjective Date of service: 12/07/21 Principal diagnosis: AHRF; HTNsive emergency; Pulmonary edema; AE-CHF; Asthma; Cocaine abuse Interval history: Patient lying in bed in no acute distress Sinus 58 with PVCs Objective Vital Signs Temp Pulse Resp BP Pulse Ox 12/07/21 07:33 98.0 F 60 18 135/88 99 12/07/21 03:29 98.3 F 57 L 19 158/85 93 12/06/21 23:23 98.0 F 52 L 18 142/70 96 12/06/21 22:00 97 12/06/21 21:31 157/73 12/06/21 21:30 157/73 12/06/21 19:16 97.3 F L 65 18 157/73 96 12/06/21 15:48 98.8 F 70 16 161/94 97 12/06/21 12:34 80 12/06/21 12:00 97 12/06/21 11:23 98.9 F 67 16 199/115 96 - Physical Examination General: No Apparent Distress HEENT: Positive: Normocephaly Cardiac: Positive: Reg Rate and Rhythm Lungs: Positive: Normal Breath Sounds Neuro: Positive: Grossly Intact Abdomen: Positive: Soft Skin: Negative: Rash, Suspicious Lesions Extremities: Present: upper extr. pulses, warm. Absent: edema - Labs and Meds Comprehensive Metabolic Panel 12/07/21 Range/Units 06:36 Sodium 140 (137-145) mmol/L Potassium 4.0 (3.6-5.0) mmol/L Chloride 108.2 H (98-107) mmol/L Carbon Dioxide 19 L (22-30) mmol/L BUN 37 H (7-17) mg/dL Creatinine 2.6 H (0.6-1.2) mg/dL Glucose 91 (65-100) mg/dL Calcium 8.1 L (8.4-10.2) mg/dL - Imaging and Cardiology EKG: report reviewed, image reviewed Echo: report reviewed - Telemetry EKG Rhythm: Sinus Rhythm - EKG Sinus rhythms and dysrhythmias: sinus rhythm Repolarization changes or abnormalities: nonspecific abnormality, ST segment, and/or T wave - Allied health notes Allied health notes reviewed: nursing
--- NOTE | 2021-12-07 11:37 | Progress Note ---
Assessment and Plan Assessment and plan: This is a 40-year-old female with past medical history of Asthma, HTN, CVA, and cocaine dependence admitted for acute hypoxemic respiratory failure secondary to bilateral pneumonia versus flash pulmonary edema and CHF exacerbation. #Acute Hypoxemic Respiratory Failure / #Bilateral Pneumonia vs Flash Pulmonary Edema #H/o Asthma - Intubated in the ED on 12/03 - 12/04 extubated, currently stable on RA - s/p IV antibiotics - sputum culture negative so far - Continue SPO2 monitoring for SPO2 goal above 95% #Acute Kidney Injury-improving - baseline is unknown, Cr 2.6 today - likely intrinsic renal vascular disease in the setting of uncontrolled high blood pressure - Nephrology following - Avoid nephrotoxins and renally dose medications #Heart failure with reduced ejection fraction #Hypertensive Emergency-resolved #Hypertension - ProBNP greater than 29K on admit and hypertensive - s/p cardene gtt - TTE showed LVEF 40 to 45% - Cardiology following; plan for stress test tomorrow - Strict I/O and daily weights - BP improved, continue current medications - continue PRN hydralazine #Acute Encephalopathy-resolved #Cocaine dependence - UDS + cocaine - continue Methadone TID - Avoid delirium - Psych consulted, restarted home medications #GI/DVT prophylaxis - Continue PPI- Pepcid - Continue AC- Heparin SubQ - SCD to bilateral lower extremities while in bed History Interval history: No acute events overnight. Patient states that she feels like she has trouble breathing. Denies cough, chest pain or dyspnea on exertion. No other complaints at this time. Hospitalist Physical - Physical exam Narrative exam: GENERAL: Well-developed well-nourished. In no acute distress. HEENT: Normocephalic. Atraumatic. NECK: Supple. CHEST/LUNGS: CTAB on room air HEART/CARDIOVASCULAR: RRR. No murmur, rubs or gallops appreciated. ABDOMEN: +BS. NT/ND. SKIN: No rashes noted. NEURO: No focal motor deficit. Follows all commands. MUSCULOSKELETAL: No joint effusion EXTREMITIES: No cyanosis, clubbing or edema. PSYCH: Cooperative. - Constitutional Vitals: Temp Pulse Resp BP Pulse Ox 98.0 F 60 18 135/88 99 12/07/21 07:33 12/07/21 07:33 12/07/21 07:33 12/07/21 07:33 12/07/21 07:33 General appearance: Present: no acute distress HEART Score - HEART Score Troponin: Troponin T 0.025 ng/mL (0.00-0.029) 12/07/21 09:33 Results - Labs CBC & Chem 7: 12/06/21 06:40 02 06:36 Labs: Laboratory Last Values WBC 11.9 K/mm3 (4.5-11.0) H 12/06/21 06:40 RBC 4.69 M/mm3 (3.65-5.03) 12/06/21 06:40 Hgb 11.4 gm/dl (10.1-14.3) 12/06/21 06:40 Hct 36.8 % (30.3-42.9) 12/06/21 06:40 MCV 79 fl (79-97) 12/06/21 06:40 MCH 24 pg (28-32) L 12/06/21 06:40 MCHC 31 % (30-34) 12/06/21 06:40 RDW 18.8 % (13.2-15.2) H 12/06/21 06:40 Plt Count 233 K/mm3 (140-440) 12/06/21 06:40 Add Manual Diff Complete 12/04/21 04:00 Total Counted 100 12/04/21 04:00 Seg Neutrophils % Svp Chief Marketing Officer 12/04/21 04:00 Seg Neuts % (Manual) 98.0 % (40.0-70.0) H 12/04/21 04:00 Band Neutrophils % 0 % 12/04/21 04:00 Lymphocytes % (Manual) 2.0 % (13.4-35.0) L 12/04/21 04:00 Reactive Lymphs % (Man) 0 % 12/04/21 04:00 Monocytes % (Manual) 0 % (0.0-7.3) 12/04/21 04:00 Eosinophils % (Manual) 0 % (0.0-4.3) 12/04/21 04:00 Basophils % (Manual) 0 % (0.0-1.8) 12/04/21 04:00 Metamyelocytes % 0 % 12/04/21 04:00 Myelocytes % 0 % 12/04/21 04:00 Promyelocytes % 0 % 12/04/21 04:00 Blast Cells % 0 % 12/04/21 04:00 Nucleated RBC % Not Reportable 12/04/21 04:00 Seg Neutrophils # Man 13.0 K/mm3 (1.8-7.7) H 12/04/21 04:00 Band Neutrophils # 0.0 K/mm3 12/04/21 04:00 Lymphocytes # (Manual) 0.3 K/mm3 (1.2-5.4) L 12/04/21 04:00 Abs React Lymphs (Man) 0.0 K/mm3 12/04/21 04:00 Monocytes # (Manual) 0.0 K/mm3 (0.0-0.8) 12/04/21 04:00 Eosinophils # (Manual) 0.0 K/mm3 (0.0-0.4) 12/04/21 04:00 Basophils # (Manual) 0.0 K/mm3 (0.0-0.1) 12/04/21 04:00 Metamyelocytes # 0.0 K/mm3 12/04/21 04:00 Myelocytes # 0.0 K/mm3 12/04/21 04:00 Promyelocytes # 0.0 K/mm3 12/04/21 04:00 Blast Cells # 0.0 K/mm3 12/04/21 04:00 WBC Morphology Not Reportable 12/04/21 04:00 Hypersegmented Neuts Not Reportable 12/04/21 04:00 Hyposegmented Neuts Not Reportable 12/04/21 04:00 Hypogranular Neuts Not Reportable 12/04/21 04:00 Smudge Cells Not Reportable 12/04/21 04:00 Toxic Granulation Not Reportable 12/04/21 04:00 Toxic Vacuolation Not Reportable 12/04/21 04:00 Dohle Bodies Not Reportable 12/04/21 04:00 Pelger-Huet Anomaly Not Reportable 12/04/21 04:00 Gaurav Rods Not Reportable 12/04/21 04:00 Platelet Estimate Consistent w auto 12/04/21 04:00 Clumped Platelets Not Reportable 12/04/21 04:00 Plt Clumps, EDTA Not Reportable 12/04/21 04:00 Large Platelets Not Reportable 12/04/21 04:00 Giant Platelets Not Reportable 12/04/21 04:00 Platelet Satelliting Not Reportable 12/04/21 04:00 Plt Morphology Comment Not Reportable 12/04/21 04:00 RBC Morphology Not Reportable 12/04/21 04:00 Dimorphic RBCs Not Reportable 12/04/21 04:00 Polychromasia Not Reportable 12/04/21 04:00 Hypochromasia 1+ 12/04/21 04:00 Poikilocytosis Not Reportable 12/04/21 04:00 Anisocytosis 1+ 12/04/21 04:00 Microcytosis Not Reportable 12/04/21 04:00 Macrocytosis Not Reportable 12/04/21 04:00 Spherocytes Not Reportable 12/04/21 04:00 Pappenheimer Bodies Not Reportable 12/04/21 04:00 Sickle Cells Not Reportable 12/04/21 04:00 Target Cells Not Reportable 12/04/21 04:00 Tear Drop Cells Not Reportable 12/04/21 04:00 Ovalocytes Not Reportable 12/04/21 04:00 Helmet Cells Not Reportable 12/04/21 04:00 Castillo-Meacham Bodies Not Reportable 12/04/21 04:00 [place] Rings Not Reportable 12/04/21 04:00 Lynnette Cells Not Reportable 12/04/21 04:00 Bite Cells Not Reportable 12/04/21 04:00 Crenated Cell Not Reportable 12/04/21 04:00 Elliptocytes Not Reportable 12/04/21 04:00 Acanthocytes (Spur) Not Reportable 12/04/21 04:00 Rouleaux Not Reportable 12/04/21 04:00 Hemoglobin C Crystals Not Reportable 12/04/21 04:00 Schistocytes Not Reportable 12/04/21 04:00 Malaria parasites Not Reportable 12/04/21 04:00 Richard Bodies Not Reportable 12/04/21 04:00 Hem Pathologist Commnt No 12/04/21 04:00 D-Dimer 1502.54 ng/mlDDU (0-234) H 12/03/21 09:49 ABG pH 7.408 pH Units (7.350-7.450) 12/04/21 17:50 POC ABG pCO2 38.6 mmHg (32.0-48.0) 12/04/21 03:32 ABG pCO2 31.0 mm Hg 12/04/21 17:50 POC ABG pO2 93.7 mmHg (83-108) 12/04/21 03:32 ABG pO2 178.7 mm Hg (80.0-90.0) H 12/04/21 17:50 POC ABG HCO3 18.1 12/04/21 03:32 ABG HCO3 19.1 mmol/L (20.0-26.0) L 12/04/21 17:50 ABG O2 Saturation 99.2 % (95.0-99.0) H 12/04/21 17:50 ABG O2 Content 15.5 (0.0-44) 12/04/21 17:50 POC ABG Base Excess -7.9 12/04/21 03:32 ABG Base Excess -4.7 mmol/L (-2.0-3.0) L 12/04/21 17:50 ABG Hemoglobin 11.1 gm/dl (12.0-16.0) L 12/04/21 17:50 ABG Oxyhemoglobin 95.8 (94-98) 12/04/21 03:32 ABG Carboxyhemoglobin 1.8 % (0.0-5.0) 12/04/21 17:50 ABG Methemoglobin 0.4 % (0.0-1.5) 12/04/21 17:50 Oxyhemoglobin 96.9 % (95.0-99.0) 12/04/21 17:50 Carboxyhemoglobin 1.1 (0.5-1.5) 12/04/21 03:32 FiO2 40 % 12/04/21 17:50 FiO2 % 40.0 12/04/21 03:32 Sodium 140 mmol/L (137-145) 12/07/21 06:36 Potassium 4.0 mmol/L (3.6-5.0) 12/07/21 06:36 Chloride 108.2 mmol/L (98-107) H 12/07/21 06:36 Carbon Dioxide 19 mmol/L (22-30) L 12/07/21 06:36 Anion Gap 17 mmol/L 12/07/21 06:36 BUN 37 mg/dL (7-17) H 12/07/21 06:36 Creatinine 2.6 mg/dL (0.6-1.2) H 12/07/21 06:36 Estimated GFR 20 ml/min 12/07/21 06:36 BUN/Creatinine Ratio 14 % 12/07/21 06:36 Glucose 91 mg/dL (65-100) 12/07/21 06:36 POC Glucose 86 mg/dL (70-105) 12/04/21 16:01 Lactic Acid 1.10 mmol/L (0.7-2.0) 12/03/21 17:50 Calcium 8.1 mg/dL (8.4-10.2) L 12/07/21 06:36 Phosphorus 2.80 mg/dL (2.5-4.5) 12/06/21 06:40 Magnesium 2.30 mg/dL (1.7-2.3) 12/06/21 06:40 Ferritin 171.6 ng/mL (10.0-200.0) 12/03/21 09:49 Total Bilirubin 0.60 mg/dL (0.1-1.2) 12/04/21 04:00 AST 16 units/L (5-40) 12/04/21 04:00 ALT 13 units/L (7-56) 12/04/21 04:00 Alkaline Phosphatase 87 units/L (35-129) 12/04/21 04:00 Lactate Dehydrogenase 496 units/L (91-180) H 12/03/21 09:49 Troponin T 0.025 ng/mL (0.00-0.029) 12/07/21 09:33 C-Reactive Protein 0.30 mg/dL (0.00-1.30) 12/03/21 09:49 NT-Pro-B Natriuret Pep 65541 pg/mL (0-450) H 12/03/21 13:26 Total Protein 6.6 g/dL (6.3-8.2) 12/04/21 04:00 Albumin 3.4 g/dL (3.9-5) L 12/04/21 04:00 Albumin/Globulin Ratio 1.1 % 12/04/21 04:00 Procalcitonin 0.06 ng/mL (<0.15) 12/03/21 09:49 Urine Color Yellow (Yellow) 12/04/21 08:35 Urine Turbidity Slightly-cloudy (Clear) 12/04/21 08:35 Urine pH 5.0 (5.0-7.0) 12/04/21 08:35 Ur Specific [place] 1.013 (1.003-1.030) 12/04/21 08:35 Urine Protein 100 mg/dl mg/dL (Negative) 12/04/21 08:35 Urine Glucose (UA) Neg mg/dL (Negative) 12/04/21 08:35 Urine Ketones Neg mg/dL (Negative) 12/04/21 08:35 Urine Blood Neg (Negative) 12/04/21 08:35 Urine Nitrite Neg (Negative) 12/04/21 08:35 Urine Bilirubin Neg (Negative) 12/04/21 08:35 Urine Urobilinogen < 2.0 mg/dL (<2.0) 12/04/21 08:35 Ur Leukocyte Esterase Lg (Negative) 12/04/21 08:35 Urine WBC (Auto) 43.0 /HPF (0.0-6.0) H 12/04/21 08:35 Urine RBC (Auto) 5.0 /HPF (0.0-6.0) 12/04/21 08:35 U Epithel Cells (Auto) < 1.0 /HPF (0-13.0) 12/04/21 08:35 Urine Bacteria (Auto) 1+ /HPF (Negative) 12/04/21 08:35 Hyaline Casts 1 /LPF 12/04/21 08:35 Urine Mucus Few /HPF 12/04/21 08:35 Urine Creatinine 208.5 mg/dL (0.1-20.0) H 12/04/21 08:35 Urine Sodium 20 mmol/L 12/04/21 08:35 Urine Opiates Screen Negative 12/03/21 Unknown Urine Methadone Screen Negative 12/03/21 Unknown Ur Barbiturates Screen Negative 12/03/21 Unknown Ur Phencyclidine Scrn Negative 12/03/21 Unknown Ur Amphetamines Screen Negative 12/03/21 Unknown U Benzodiazepines Scrn Negative 12/03/21 Unknown Urine Cocaine Screen Positive 12/03/21 Unknown U Marijuana (THC) Screen Negative 12/03/21 Unknown Drugs of Abuse Note Disclamer 12/03/21 Unknown SARS-CoV-2 (PCR) Negative (Negative) 12/03/21 10:29 Blood Type A NEGATIVE 12/03/21 17:50 Antibody Screen Negative 12/03/21 17:50 Microbiology: Microbiology 12/04/21 08:35 Urine,Catheterized - Straight Catheter Urine Culture - Final NO GROWTH AFTER 48 HOURS 12/03/21 17:48 Tracheal Aspirate Sputum Culture - Final 12/03/21 13:26 Peripheral/Venous Blood Culture - Preliminary NO GROWTH AFTER 72 HOURS 12/03/21 13:26 Peripheral/Venous Blood Culture - Preliminary NO GROWTH AFTER 72 HOURS Sen/IV: Voiding Method Toilet Active Medications - Current Medications Current Medications: Generic Name Dose Route Start Last Admin Trade Name Freq PRN Reason Stop Dose Admin Acetaminophen 650 mg 12/03/21 16:50 Acetaminophen 325 Mg Tab PO Q6H PRN Pain, Mild (1-3) Albuterol 2.5 mg 12/03/21 13:12 Albuterol 2.5 Mg/3 Ml Nebu IH Q3HRT PRN Shortness Of Breath Clonidine HCl 0.1 mg 12/06/21 20:00 12/07/21 10:17 Clonidine 0.1 Mg Tab PO 0.1 mg TID JHON Administration Diphenhydramine HCl 25 mg 12/05/21 12:00 12/06/21 21:39 Diphenhydramine 25 Mg Cap PO 25 mg Q8H PRN Administration Itching Famotidine 20 mg 12/06/21 10:00 12/07/21 10:17 Famotidine 20 Mg Tab PO 20 mg DAILY JOHN Administration Heparin Sodium (Porcine) 5,000 unit 12/03/21 22:00 12/07/21 10:26 Heparin 5,000 Unit/1 Ml Vial SUB-Q 5,000 unit Q12HR JOHN Administration Hydralazine HCl 10 mg 12/06/21 08:00 12/06/21 12:16 Hydralazine 20 Mg/1 Ml Inj IV 10 mg Q4H PRN Administration Hypertension Hydralazine HCl 100 mg 12/06/21 14:00 12/07/21 06:35 Hydralazine 100 Mg Tab PO 100 mg Q8HR JOHN Administration Hydromorphone HCl 0.25 mg 12/03/21 13:12 Hydromorphone 1 Mg/1 Ml Inj IV Q4H PRN Pain, Moderate (4-6) Isosorbide Mononitrate 60 mg 12/06/21 10:00 12/07/21 10:17 Isosorbide Mononitrate Er 60 Mg Tab PO 60 mg QDAY JOHN Administration Methadone HCl 5 mg 12/05/21 14:00 12/07/21 10:25 Methadone 5 Mg Tab PO 5 mg TID JOHN Administration Metoprolol Tartrate 25 mg 12/06/21 11:00 12/07/21 10:16 Metoprolol Tartrate 25 Mg Tab PO 25 mg BID JOHN Administration Multi-Ingred Cream/Lotion/Oil/Oint 1 applic 12/03/21 17:48 Mineral Oil/Petrolatum, White Ophth Oint 3.5 Gm OU Q4HR PRN Dry Eye(s) Nifedipine 30 mg 12/06/21 10:00 12/07/21 10:17 Nifedipine Xl 30 Mg Tab PO 30 mg QDAY JOHN Administration Ondansetron HCl 4 mg 12/04/21 20:36 12/04/21 20:30 Ondansetron 4 Mg/2 Ml Inj IV 4 mg Q8H PRN Administration Nausea And Vomiting Oxycodone/Acetaminophen 1 tab 12/03/21 13:12 12/06/21 07:29 Oxycodone /Acetaminophen 5-325mg Tab PO 1 tab Q16H PRN Administration Pain, Moderate (4-6) Paroxetine HCl 20 mg 12/06/21 14:00 12/07/21 10:33 Paroxetine 20 Mg Tab PO 20 mg QDAY JOHN Administration Prednisone 40 mg 12/06/21 10:00 12/07/21 10:17 Prednisone 20 Mg Tab PO 40 mg QDAY JOHN Administration Sodium Bicarbonate 1,300 mg 12/06/21 17:00 12/07/21 10:17 Sodium Bicarbonate 650 Mg Tab PO 1,300 mg BID JOHN Administration Sodium Chloride 10 ml 12/03/21 22:00 12/07/21 10:18 Sodium Chloride 0.9% 10 Ml Flush Syringe IV 10 ml BID JOHN Administration Sodium Chloride 10 ml 12/03/21 13:12 Sodium Chloride 0.9% 10 Ml Flush Syringe IV PRN PRN LINE FLUSH Trazodone HCl 50 mg 12/06/21 22:00 12/06/21 21:30 Trazodone 50 Mg Tab PO 50 mg QHS JOHN Administration Nutrition/Malnutrition Assess - Dietary Evaluation Nutrition/Malnutrition Findings: Nutrition Notes Start: 12/04/21 11:58 Freq: Status: Active Protocol: Document 12/04/21 11:58 NHALL (Rec: 12/04/21 12:07 NELSON [id number]) Nutrition Notes Need for Assessment generated from: MD Order Initial or Follow up Assessment Current Diagnosis Acute Kidney Injury,Sepsis, Hypertension,Heart Failure, Respiratory Failure,Stroke Other Pertinent Diagnosis Bilat pneu, hypertensive emergency, encephalopathy, cocaine dependence Current Diet NPO Labs/Tests BUN 34 Cr 3 Pertinent Medications Vit C, Vit D3, Zn sulfate, Lasix, Solumedrol, Cardene gtt , Propofol at 1.497ml/hr ( provides 40 kcal) Height 5 ft 2 in Weight 58 kg [place] Body Weight (kg) 50.00 BMI 23.3 Weight Status Appropriate Subjective/Other Information RD consulted for TF; pt also screened for malnutrition risk . Pt on vent support. Burn Absent Trauma Absent Skin Integrity/Comment No skin breakdown reported Minimum of two criteria No Reduced Long Filler Cigar Roller Machine Strength Measurably Reduced (severe) #1 Nutrition Diagnosis Inadequate oral intake [facility] As Evidenced by Signs and Symptoms pt NPO Is patient on ventilator? Yes Is Patient Ambulatory and/or Out of Bed No REE-([facility]-confined to bed) 1435.236 Calculation Used for Recommendations [facility] Additional Notes Pro needs 1.2-2g/k-116g/ day Fluid needs 1ml/kcal Nutrition Intervention Nutrition Support: Osmolite 1.5 at 40ml/hr with 120ml water flush q4h. Kcal 1,440 Protein (gm) 60 Carbohydrates (gm) 195 Fat (gm) 47 Fluid (mL) 732 Fiber (gm) 0 Goal #1 TF tolerance Goal #2 TF to meet at least 75% energy and pro needs Anticipated Discharge Needs: Unable to identify at this time Follow-Up By: 12/07/21 Additional Comments F/U: new TF, vent status
--- NOTE | 2021-12-07 19:36 | Progress Note ---
Assessment and Plan - Patient Problems (1) Acute hypoxemic respiratory failure Current Visit: Yes Status: Acute (2) Acute kidney injury (LILIYA) with acute tubular necrosis (ATN) Current Visit: Yes Status: Acute (3) Bilateral pneumonia Current Visit: Yes Status: Acute Qualifiers: Pneumonia type: due to unspecified organism Lung location: lower lobe of lung Qualified Code(s): J18.9 - Pneumonia, unspecified organism (4) CHF (congestive heart failure) Current Visit: Yes Status: Acute Qualifiers: Heart failure chronicity: acute on chronic (5) Cocaine dependence Current Visit: Yes Status: Acute (6) Hypertensive emergency Current Visit: Yes Status: Acute (7) Suspected COVID-19 virus infection Current Visit: Yes Status: Acute Subjective Date of service: 12/07/21 Principal diagnosis: AHRF; HTNsive emergency; Pulmonary edema; AE-CHF; Asthma; Cocaine abuse Objective Vital Signs - 12hr 12/07/21 12/07/21 12/07/21 10:00 12:06 15:54 Temperature 97.8 F 97.8 F Pulse Rate 60 60 Respiratory 18 16 Rate Blood Pressure 150/80 133/82 O2 Sat by Pulse 99 99 Oximetry Constitutional: no acute distress (sedated), other (middle aged female with normal respiratory effort at rest) Eyes: non-icteric ENT: oropharynx moist, other (ETT 24 cm YAMILET) Neck: supple, no lymphadenopathy, no JVD Effort: normal Ascultation: Bilateral: diminished breath sounds, rhonchi Percussion: Bilateral: not dull Cardiovascular: regular rate and rhythm Gastrointestinal: normoactive bowel sounds, soft, non-tender, non-distended Integumentary: normal Extremities: no cyanosis, no edema, pulses normal, no ischemia or petechiae Neurologic: normal mental status, non-focal exam (grossly), pupils equal and round, motor strength normal and Psychiatric: mood appropriate, affect normal CBC and BMP: 12/06/21 06:40 12/07/21 06:36 ABG, PT/INR, D-dimer: ABG ABG pH 7.408 pH Units (7.350-7.450) 12/04/21 17:50 POC ABG pCO2 38.6 mmHg (32.0-48.0) 12/04/21 03:32 ABG pCO2 31.0 mm Hg 12/04/21 17:50 POC ABG pO2 93.7 mmHg (83-108) 12/04/21 03:32 ABG pO2 178.7 mm Hg (80.0-90.0) H 12/04/21 17:50 POC ABG HCO3 18.1 12/04/21 03:32 ABG O2 Saturation 99.2 % (95.0-99.0) H 12/04/21 17:50 PT/INR, D-dimer D-Dimer 1502.54 ng/mlDDU (0-234) H 12/03/21 09:49 Abnormal lab findings: Abnormal Labs 12/03/21 12/03/21 12/03/21 09:49 09:49 09:49 WBC 13.1 H RBC 5.40 H MCV MCH 24 L RDW 18.3 H Seg Neuts % (Manual) 90.0 H Lymphocytes % (Manual) 5.0 L Seg Neutrophils # Man 11.8 H Lymphocytes # (Manual) 0.7 L D-Dimer ABG pH ABG pO2 ABG HCO3 ABG O2 Saturation ABG Base Excess ABG Hemoglobin Chloride Carbon Dioxide 18 L BUN 29 H Creatinine 2.7 H Glucose 108 H Calcium Lactate Dehydrogenase 496 H NT-Pro-B Natriuret Pep Albumin Urine WBC (Auto) Urine Creatinine 12/03/21 12/03/21 12/03/21 09:49 13:26 14:55 WBC RBC MCV MCH RDW Seg Neuts % (Manual) Lymphocytes % (Manual) Seg Neutrophils # Man Lymphocytes # (Manual) D-Dimer 1502.54 H ABG pH 7.348 L ABG pO2 211.1 H ABG HCO3 ABG O2 Saturation 99.3 H ABG Base Excess -4.8 L ABG Hemoglobin 11.9 L Chloride Carbon Dioxide BUN Creatinine Glucose Calcium Lactate Dehydrogenase NT-Pro-B Natriuret Pep 41999 H Albumin Urine WBC (Auto) Urine Creatinine 12/04/21 12/04/21 12/04/21 03:32 04:00 04:00 WBC 13.3 H RBC MCV MCH 24 L RDW 18.6 H Seg Neuts % (Manual) 98.0 H Lymphocytes % (Manual) 2.0 L Seg Neutrophils # Man 13.0 H Lymphocytes # (Manual) 0.3 L D-Dimer ABG pH 7.289 L ABG pO2 ABG HCO3 ABG O2 Saturation ABG Base Excess ABG Hemoglobin Chloride 107.4 H Carbon Dioxide 20 L BUN 34 H Creatinine 3.0 H Glucose 119 H Calcium Lactate Dehydrogenase NT-Pro-B Natriuret Pep Albumin 3.4 L Urine WBC (Auto) Urine Creatinine 12/04/21 12/04/21 12/04/21 08:35 08:35 17:50 WBC RBC MCV MCH RDW Seg Neuts % (Manual) Lymphocytes % (Manual) Seg Neutrophils # Man Lymphocytes # (Manual) D-Dimer ABG pH ABG pO2 178.7 H ABG HCO3 19.1 L ABG O2 Saturation 99.2 H ABG Base Excess -4.7 L ABG Hemoglobin 11.1 L Chloride Carbon Dioxide BUN Creatinine Glucose Calcium Lactate Dehydrogenase NT-Pro-B Natriuret Pep Albumin Urine WBC (Auto) 43.0 H Urine Creatinine 208.5 H 12/05/21 12/05/21 12/06/21 05:30 05:30 06:40 WBC 17.0 H 11.9 H RBC MCV 78 L MCH 25 L 24 L RDW 18.9 H 18.8 H Seg Neuts % (Manual) Lymphocytes % (Manual) Seg Neutrophils # Man Lymphocytes # (Manual) D-Dimer ABG pH ABG pO2 ABG HCO3 ABG O2 Saturation ABG Base Excess ABG Hemoglobin Chloride Carbon Dioxide 18 L BUN 55 H Creatinine 3.6 H Glucose 140 H Calcium Lactate Dehydrogenase NT-Pro-B Natriuret Pep Albumin Urine WBC (Auto) Urine Creatinine 12/06/21 12/07/21 06:40 06:36 WBC RBC MCV MCH RDW Seg Neuts % (Manual) Lymphocytes % (Manual) Seg Neutrophils # Man Lymphocytes # (Manual) D-Dimer ABG pH ABG pO2 ABG HCO3 ABG O2 Saturation ABG Base Excess ABG Hemoglobin Chloride 107.5 H 108.2 H Carbon Dioxide 17 L 19 L BUN 47 H 37 H Creatinine 3.2 H 2.6 H Glucose Calcium 8.1 L Lactate Dehydrogenase NT-Pro-B Natriuret Pep Albumin Urine WBC (Auto) Urine Creatinine Chest x-ray: report reviewed, image reviewed Additional Studies: CHEST 1 VIEW 12/07/21 INDICATION: shortness of breath. COMPARISON: 12/05/2021 FINDINGS: Support devices: None. Heart: Decreased heart size. Heart size appears borderline on today's exam. Lungs/Pleura: The lungs remain generally clear with no evidence for pneumonia, pleural effusion or pneumothorax. Additional findings: None. IMPRESSION: Borderline heart size. Lungs clear. Allied health notes reviewed: nursing
[2021-12-07] MEDS: traZODone 50 MG TAB PO SCH (21:16)
[2021-12-08] MEDS: hydrALAZINE 100 MG TAB PO SCH ×2 (05:42→15:06)
--- NOTE | 2021-12-08 06:36 | Ultrasound Report ---
ULTRASOUND RENAL INDICATION / CLINICAL INFORMATION: Acute on chronic renal failure. COMPARISON: None available. FINDINGS: RIGHT KIDNEY: Length = 9.2 cm. - Echogenicity: Increased - Cortical Thickness: 1.2 cm - Hydronephrosis: None. - Cyst / Mass: None. - Stones: None seen. LEFT KIDNEY: Length = 9.4 cm. - Echogenicity: Increased - Cortical Thickness: 1.0 cm - Hydronephrosis: None. - Cyst / Mass: None. - Stones: None seen. URINARY BLADDER: No significant abnormality. FREE FLUID: None. ADDITIONAL FINDINGS: None. IMPRESSION: 1. Increased renal cortical echotexture. Nonspecific finding that may reflect sequelae of medical aviva al disease. Mild renal cortical atrophy suggested. Signer Name: Fabiano Lange II, MD Signed: 12/08/2021 6:31 AM Workstation Name: [id number]
[2021-12-08 06:43] LABS: Calcium 8.4 mg/dL (8.4-10.2)
[2021-12-08] MEDS ORDERED: REGADENOSON 0.4 MG/5 ML INJ IV ONE (07:11)
--- NOTE | 2021-12-08 09:48 | Progress Note ---
Assessment and Plan Impression: * LILIYA om unknown stage of CKD * HTN urgency * cocaine abuse * AMS * PNA * Pulm edema * Acute hypoxic resp failure * Asthma Plan: * Renal function is slowly improving. Patient is also currently nonoliguric. * Her blood pressures under much better control today. 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 She is doing well. Denies any shortness of breath. No nausea or vomiting. Objective - Vital Signs Vital signs: Vital Signs - 12hr 12/07/21 12/07/21 12/08/21 22:00 23:10 03:26 Temperature 98.0 F 97.6 F Pulse Rate 48 L 47 L Respiratory 18 18 Rate Blood Pressure 151/80 149/63 O2 Sat by Pulse 98 92 96 Oximetry 12/08/21 12/08/21 06:00 07:40 Temperature Pulse Rate 56 L 54 L Respiratory 18 Rate Blood Pressure 167/102 O2 Sat by Pulse 96 Oximetry - General Appearance General appearance: well-developed, well-nourished, appears stated age EENT: PERRL, mucous membranes moist Neck: no JVD, no thyromegaly, no carotid bruit, supple Respiratory: Present: Clear to Ascultation Integumentary: no rash, other (No edema) - Lab 12/06/21 06:40 12/08/21 04:04 Most recent lab results ABG pH 7.408 pH Units (7.350-7.450) 12/04/21 17:50 ABG pCO2 31.0 mm Hg 12/04/21 17:50 ABG pO2 178.7 mm Hg (80.0-90.0) H 12/04/21 17:50 ABG HCO3 19.1 mmol/L (20.0-26.0) L 12/04/21 17:50 ABG O2 Saturation 99.2 % (95.0-99.0) H 12/04/21 17:50 Calcium 8.4 mg/dL (8.4-10.2) 12/08/21 04:04 Phosphorus 2.80 mg/dL (2.5-4.5) 12/06/21 06:40 Magnesium 2.30 mg/dL (1.7-2.3) 12/06/21 06:40 Urine Creatinine 208.5 mg/dL (0.1-20.0) H 12/04/21 08:35 Urine Sodium 20 mmol/L 12/04/21 08:35 Medications & Allergies - Medications Allergies/Adverse Reactions: Allergies codeine Allergy (Verified 12/07/21 13:24) Hives peach Allergy (Verified 12/07/21 13:24) Hives Home Medications: Home Medications Medication Instructions Recorded Confirmed Last Taken Type PARoxetine [Paxil] 20 mg PO DAILY 30 Days #30 12/06/21 Unknown Rx traZODone [Desyrel] 50 mg PO QHS 30 Days #30 tab 12/06/21 Unknown Rx Albuterol Mdi (or & Nicu Only) 2 puff IH Q6H PRN 12/07/21 12/07/21 Unknown History [ProAir HFA Inhaler] NIFEdipine [Nifedipine ER] 30 mg PO QDAY 12/07/21 12/07/21 Unknown History Famotidine [Pepcid] 20 mg PO DAILY #30 tablet 12/08/21 Unknown Rx ISOSORBIDE MONOnitrate [Imdur ER] 60 mg PO QDAY #30 tablet 12/08/21 Unknown Rx Metoprolol [Lopressor TAB] 25 mg PO BID #60 tablet 12/08/21 Unknown Rx cloNIDine [Catapres] 0.1 mg PO TID #90 tablet 12/08/21 Unknown Rx hydrALAZINE [Apresoline TAB] 100 mg PO Q8HR #90 tab 12/08/21 Unknown Rx Active Medications: Generic Name Dose Route Start Last Admin Trade Name Freq PRN Reason Stop Dose Admin Acetaminophen 650 mg 12/03/21 16:50 Acetaminophen 325 Mg Tab PO Q6H PRN Pain, Mild (1-3) Albuterol 2.5 mg 12/03/21 13:12 Albuterol 2.5 Mg/3 Ml Nebu IH Q3HRT PRN Shortness Of Breath Clonidine HCl 0.1 mg 12/06/21 20:00 12/07/21 21:15 Clonidine 0.1 Mg Tab PO 0.1 mg TID [facility] Administration Diphenhydramine HCl 25 mg 12/05/21 12:00 12/06/21 21:39 Diphenhydramine 25 Mg Cap PO 25 mg Q8H PRN Administration Itching Famotidine 20 mg 12/06/21 10:00 12/07/21 10:17 Famotidine 20 Mg Tab PO 20 mg DAILY [facility] Administration Heparin Sodium (Porcine) 5,000 unit 12/03/21 22:00 12/07/21 21:17 Heparin 5,000 Unit/1 Ml Vial SUB-Q 5,000 unit Q12HR [facility] Administration Hydralazine HCl 10 mg 12/06/21 08:00 12/06/21 12:16 Hydralazine 20 Mg/1 Ml Inj IV 10 mg Q4H PRN Administration Hypertension Hydralazine HCl 100 mg 12/06/21 14:00 12/08/21 05:42 Hydralazine 100 Mg Tab PO Not Given Q8HR [facility] Hydromorphone HCl 0.25 mg 12/03/21 13:12 Hydromorphone 1 Mg/1 Ml Inj IV Q4H PRN Pain, Moderate (4-6) Isosorbide Mononitrate 60 mg 12/06/21 10:00 12/07/21 10:17 Isosorbide Mononitrate Er 60 Mg Tab PO 60 mg QDAY [facility] Administration Methadone HCl 5 mg 12/05/21 14:00 12/07/21 21:14 Methadone 5 Mg Tab PO 5 mg TID [facility] Administration Metoprolol Tartrate 25 mg 12/06/21 11:00 12/07/21 21:16 Metoprolol Tartrate 25 Mg Tab PO 25 mg BID [facility] Administration Multi-Ingred Cream/Lotion/Oil/Oint 1 applic 12/03/21 17:48 Mineral Oil/Petrolatum, White Ophth Oint 3.5 Gm OU Q4HR PRN Dry Eye(s) Nifedipine 30 mg 12/06/21 10:00 12/07/21 10:17 Nifedipine Xl 30 Mg Tab PO 30 mg QDAY [facility] Administration Ondansetron HCl 4 mg 12/04/21 20:36 12/04/21 20:30 Ondansetron 4 Mg/2 Ml Inj IV 4 mg Q8H PRN Administration Nausea And Vomiting Oxycodone/Acetaminophen 1 tab 12/03/21 13:12 12/06/21 07:29 Oxycodone /Acetaminophen 5-325mg Tab PO 1 tab Q16H PRN Administration Pain, Moderate (4-6) Paroxetine HCl 20 mg 12/06/21 14:00 12/07/21 10:33 Paroxetine 20 Mg Tab PO 20 mg QDAY [facility] Administration Prednisone 40 mg 12/06/21 10:00 12/07/21 10:17 Prednisone 20 Mg Tab PO 40 mg QDAY [facility] Administration Sodium Bicarbonate 1,300 mg 12/06/21 17:00 12/07/21 21:16 Sodium Bicarbonate 650 Mg Tab PO 1,300 mg BID [facility] Administration Sodium Chloride 10 ml 12/03/21 22:00 12/07/21 21:17 Sodium Chloride 0.9% 10 Ml Flush Syringe IV 10 ml BID [facility] Administration Sodium Chloride 10 ml 12/03/21 13:12 Sodium Chloride 0.9% 10 Ml Flush Syringe IV PRN PRN LINE FLUSH Trazodone HCl 50 mg 12/06/21 22:00 12/07/21 21:16 Trazodone 50 Mg Tab PO 50 mg QHS JOHN Administration
--- NOTE | 2021-12-08 12:11 | Discharge Summary ---
Providers - Providers Date of Admission: 12/03/21 13:12 Date of discharge: 12/08/21 Attending physician: LAURA SOLITARIO MD 12/03/21 13:34 Consult to Physician [CONS] Routine Comment: Consulting Provider: SVETA FIELDS Physician Instructions: Reason For Exam: INTUBATION/CRITICAL CARE 12/03/21 17:48 Consult to Dietitian/Nutrition [CONS] Routine Physician Instructions: Reason For Exam: Reason for Consult: Write/Manage Tube Feeding 12/04/21 08:36 Consult to Physician [CONS] Routine Comment: Consulting Provider: CHELSEY LIU Physician Instructions: Reason For Exam: LILIYA 12/04/21 10:53 Consult to Physician [CONS] Routine Comment: Consulting Provider: ZABRINA CHRISTENSEN Physician Instructions: Reason For Exam: CHF 12/05/21 08:13 Consult to Physician [CONS] Routine Comment: Consulting Provider: RODOLFO NIETO Physician Instructions: Reason For Exam: psychosis Primary care physician: EDITORIAL ASSISTANT Hospitalization Reason for admission: Acute hypoxic respiratory failure; sepsis; acute metabolic encephalopathy Condition: Stable Pertinent studies: Reviewed. Procedures: Intubation Hospital course: Patient is a 40-year-old female past medical history of mild intermittent asthma, hypertension, history of CVA, history of congestive heart failure, and cocaine dependence who presented with complaints of shortness of breath head progressively worsened over the days prior to presentation. She was evaluated in the emergency room and was found to be using accessory muscles, tripoding, and unable to complete sentences. She was found to be hypoxic to 88% on room air requiring supplemental oxygen. Chest x-ray was remarkable for bilateral pneumonia complicated by sepsis, LILIYA, and hypertensive emergency. The patient was admitted to the ICU for further management. Patient was intubated on 12/03/2021 and extubated the next day. TTE was performed and revealed an EF of 40-45%. Cardiology was consulted, and recommended a stress test (performed 12/08/2021) that was unremarkable. The patient was successfully weaned off of supplemental oxygen on room air. Nephrology was consulted; however, it is presumed that the patient was renal function is likely chronic in the setting of uncontrolled high blood pressure. Patient is medically cleared for discharge. Disposition: HOME / SELF CARE / HOMELESS Final Discharge Diagnosis (Prints w/discharge instructions): Acute hypoxemic respiratory failure, bilateral pneumonia, LILIYA on CKD stage IV, acute on chronic systolic heart failure, hypertensive emergency, hypertension, acute metabolic encephalopathy, cocaine dependence, history of asthma Time spent for discharge: 45 min Core Measure Documentation - Palliative Care Palliative Care/ Comfort Measures: Not Applicable - Core Measures Any of the following diagnoses?: history only Exam - Constitutional Vitals: Temp Pulse Resp BP Pulse Ox 97.6 F 54 L 18 167/102 96 12/08/21 03:26 12/08/21 07:40 12/08/21 07:40 12/08/21 07:40 12/08/21 07:40 General appearance: Present: no acute distress, well-nourished - EENT Eyes: Present: PERRL, EOM intact ENT: hearing intact, clear oral mucosa - Neck Neck: Present: supple, normal ROM - Respiratory Respiratory effort: normal Respiratory: bilateral: diminished - Cardiovascular Rhythm: regular Heart Sounds: Present: S1 & S2 - Extremities Extremities: no ischemia, pulses intact, pulses symmetrical, No edema, normal temperature, normal color Peripheral Pulses: within normal limits - Abdominal General gastrointestinal: Present: soft, non-tender, non-distended, normal bowel sounds Female genitourinary: Present: deferred - Rectal Rectal Exam: deferred - Integumentary Integumentary: Present: clear, warm, dry - Musculoskeletal Musculoskeletal: strength equal bilaterally - Psychiatric Psychiatric: appropriate mood/affect, cooperative - Neurologic Neurologic: CNII-XII intact, moves all extremities - Allied Health Allied health notes reviewed: nursing Plan Activity: advance as tolerated Diet: low salt Additional Instructions: Patient is a 40-year-old female past medical history of mild intermittent asthma, hypertension, history of CVA, history of congestive heart failure, and cocaine dependence who presented with complaints of shortness of breath head progressively worsened over the days prior to presentation. She was evaluated in the emergency room and was found to be using accessory muscles, tripoding, and unable to complete sentences. She was found to be hypoxic to 88% on room air requiring supplemental oxygen. Chest x-ray was remarkable for bilateral pneumonia complicated by sepsis, LILIYA, and hypertensive emergency. The patient was admitted to the ICU for further management. Patient was intubated on 12/03/2021 and extubated the next day. TTE was performed and revealed an EF of 40-45%. Cardiology was consulted, and recommended a stress test (performed 12/08/2021) that was unremarkable. The patient was successfully weaned off of supplemental oxygen on room air. Nephrology was consulted; however, it is presumed that the patient was renal function is likely chronic in the setting of uncontrolled high blood pressure. Patient is medically cleared for discharge. Care Plan Goals: Patient is medically cleared for discharge. Assessment: Patient is a 40-year-old female past medical history of mild intermittent asthma, hypertension, history of CVA, history of congestive heart failure, and cocaine dependence who presented with complaints of shortness of breath head progressively worsened over the days prior to presentation. She was evaluated in the emergency room and was found to be using accessory muscles, tripoding, and unable to complete sentences. She was found to be hypoxic to 88% on room air requiring supplemental oxygen. Chest x-ray was remarkable for bilateral pneumonia complicated by sepsis, LILIYA, and hypertensive emergency. The patient was admitted to the ICU for further management. Patient was intubated on 12/03/2021 and extubated the next day. TTE was performed and revealed an EF of 40-45%. Cardiology was consulted, and recommended a stress test (performed 12/08/2021) that was unremarkable. The patient was successfully weaned off of supplemental oxygen on room air. Nephrology was consulted; however, it is presumed that the patient was renal function is likely chronic in the setting of uncontrolled high blood pressure. Patient is medically cleared for discharge. Follow up with: PRIMARY CAREMD [Primary Care Provider] - 3-5 Days Forms: Work/School Release Form Prescriptions: traZODone [Desyrel] 50 mg PO QHS 30 Days #30 tab traZODone [Desyrel] 50 mg PO QHS #30 tablet hydrALAZINE [Apresoline TAB] 100 mg PO Q8HR #90 tab cloNIDine [Catapres] 0.1 mg PO TID #90 tablet ISOSORBIDE MONOnitrate [Imdur ER] 60 mg PO QDAY #30 tablet Metoprolol [Lopressor TAB] 25 mg PO BID #60 tablet PARoxetine [Paxil] 20 mg PO DAILY 30 Days #30 PARoxetine [Paxil] 20 mg PO QDAY #30 tablet Famotidine [Pepcid] 20 mg PO DAILY #30 tablet
[2021-12-08] MEDS: METOPROLOL TARTRATE 25 MG TAB PO SCH (12:29)
[2021-12-08] MEDS: METHADONE 5 MG TAB PO SCH ×2 (12:29→14:32)
[2021-12-08] MEDS: HEPARIN 5,000 UNIT/1 ML VIAL SUB-Q SCH (12:29)
[2021-12-08] MEDS: SODIUM BICARBONATE 650 MG TAB PO SCH (12:30)
[2021-12-08] MEDS: FAMOTIDINE 20 MG TAB PO SCH (12:30)
[2021-12-08] MEDS: predniSONE 20 MG TAB PO SCH (12:30)
[2021-12-08] MEDS: cloNIDine 0.1 MG TAB PO SCH ×2 (12:30→14:31)
[2021-12-08] MEDS: PARoxetine 20 MG TAB PO SCH (12:33)
[2021-12-08] MEDS: NIFEdipine XL 30 MG TAB PO SCH (12:34)
--- NOTE | 2021-12-08 12:34 | Progress Note ---
Assessment and Plan Patient is a 40-year-old female with a past medical history of asthma, hypertension, CVA and cocaine dependence who presented to the ED yesterday for complaint of "I cannot breathe. Acute hypoxic respiratory failure-pulmonology following Pneumonia Pulmonary edema LILIYA-nephrology following HFrEF Hypertensive emergency s/p Cardene drip AMS Asthma History of CVA Cocaine dependency Echo 12/03/2021-EF 40 to 45%. LV mildly dilated. Mild LVH with impaired relaxation pattern. Mild global hypokinesis of LV. Right ventricle systolic function is normal. Left atrium is mildly dilated. Moderate mitral regurgitation Lexiscan MPI stress test 12/08/2021: Normal stress test. Stress test negative for signs of ischemia Plan: Currently on clonidine 0.1 mg p.o. 3 times daily, hydralazine 100 mg p.o. every 8 hours, Imdur 60 mg p.o. daily, metoprolol 25 mg p.o. twice daily, nifedipine 30 mg p.o. daily No GALE/ARB due to elevated creatinine Continue present management Patient has mild cardiomyopathy most likely due to substance abuse Patient may follow-up with Dr. Light, [facility] fulfillment specialist, on 12/28/2021 at 1:45 PM in our [place] location. Phone #[phone] Patient seen in conjunction with Dr. Beyer who agrees with this plan of care - Patient Problems (1) LILIYA (acute kidney injury) Current Visit: Yes Status: Acute (2) Acute hypoxemic respiratory failure Current Visit: Yes Status: Acute (3) Bilateral pneumonia Current Visit: Yes Status: Acute Qualifiers: Pneumonia type: due to unspecified organism Lung location: lower lobe of lung Qualified Code(s): J18.9 - Pneumonia, unspecified organism (4) CHF (congestive heart failure) Current Visit: Yes Status: Acute Qualifiers: Heart failure chronicity: acute on chronic (5) Cocaine dependence Current Visit: Yes Status: Acute (6) Hypertensive emergency Current Visit: Yes Status: Acute (7) Hypertensive encephalopathy Current Visit: Yes Status: Acute (8) Pulmonary edema Current Visit: Yes Status: Acute Qualifiers: Chronicity: acute Qualified Code(s): J81.0 - Acute pulmonary edema (9) Sepsis Current Visit: Yes Status: Acute Qualifiers: Acute respiratory failure type: with hypoxia Subjective Date of service: 12/08/21 Principal diagnosis: AHRF; HTNsive emergency; Pulmonary edema; AE-CHF; Asthma; Cocaine abuse Interval history: Patient lying in bed in no acute distress Sinus upper 50s on monitor Objective Vital Signs Temp Pulse Resp BP Pulse Ox 12/08/21 07:40 54 L 18 167/102 96 12/08/21 07:15 95 12/08/21 06:00 56 L 12/08/21 03:26 97.6 F 47 L 18 149/63 96 12/07/21 23:10 98.0 F 48 L 18 151/80 92 12/07/21 22:00 98 12/07/21 21:16 62 119/71 12/07/21 21:15 62 119/71 12/07/21 19:30 97.6 F 57 L 18 119/71 95 12/07/21 15:54 97.8 F 60 16 133/82 99 - Physical Examination General: No Apparent Distress HEENT: Positive: Normocephaly Neck: Positive: trachea midline Cardiac: Positive: Reg Rate and Rhythm Lungs: Positive: Normal Breath Sounds Neuro: Positive: Grossly Intact Abdomen: Positive: Soft Skin: Negative: Rash, Suspicious Lesions Extremities: Present: upper extr. pulses, warm. Absent: edema - Labs and Meds Comprehensive Metabolic Panel 12/08/21 Range/Units 04:04 Sodium 139 (137-145) mmol/L Potassium 4.1 (3.6-5.0) mmol/L Chloride 105.8 (98-107) mmol/L Carbon Dioxide 19 L (22-30) mmol/L BUN 35 H (7-17) mg/dL Creatinine 2.6 H (0.6-1.2) mg/dL Glucose 107 H (65-100) mg/dL Calcium 8.4 (8.4-10.2) mg/dL - Imaging and Cardiology EKG: report reviewed, image reviewed Echo: report reviewed - Telemetry EKG Rhythm: Sinus Rhythm - EKG Sinus rhythms and dysrhythmias: sinus rhythm Repolarization changes or abnormalities: nonspecific abnormality, ST segment, and/or T wave - Allied health notes Allied health notes reviewed: nursing
--- NOTE | 2021-12-08 14:23 | Progress Note ---
Assessment and Plan Acute hypoxemic respiratory failure s/p MVS Hypertensive emergency Flash pulmonary edema Polysubstance abuse HTN AE-CHF H/O CVA Asthma Leukocytosis Metabolic acidosis Oropharyngeal dysphagia Cocaine abuse - cardiology input noted - azotemia per nephrology (improving) - prn gentle diuresis for edema / increased SOB - continue care as below otherwise for now; - supplemental oxygen for target O2 sat's > 90% acutely - aspiration precautions - prn bronchodilators with pulmonary hygiene per RT - continue accuchecks with glycemic control per SSI for target blood glucose of < 180 mg/dL; avoid hypoglycemia - avoid nephrotoxins, renally dose all medications - prn analgesia per pain score - Maintenance of sleep-wake cycle, avoid delirium - G.I. & VTE prophylaxis - PT/OT/ROM exercises - mobility protocols for pressure ulcer prophylaxis - Monitor hemodynamics closely - continue other care per attending / other consultants - discharge planning ongoing concurrently COVID SPECIFIC INTERVENTIONS - COVID-19 PCR test negative .... Re-evaluate in am & prn Subjective Date of service: 12/08/21 Principal diagnosis: AHRF; HTNsive emergency; Pulmonary edema; AE-CHF; Asthma; Cocaine abuse Interval history: Patient is seen today for: Acute hypoxemic respiratory failure; Hypertensive emergency; Pulmonary edema; AE-CHF; Asthma; Cocaine abuse Seen and examined at bedside; 24hour events reviewed; nursing and respiratory care staff consulted; no adverse overnight events reported to me; resting peacefully in bed; Objective Vital Signs - 12hr 12/08/21 12/08/21 12/08/21 03:26 06:00 07:15 Temperature 97.6 F Pulse Rate 47 L 56 L Respiratory 18 Rate Blood Pressure 149/63 O2 Sat by Pulse 96 95 Oximetry 12/08/21 12/08/21 12/08/21 07:40 11:49 12:28 Temperature 98.0 F Pulse Rate 54 L 51 L 47 L Respiratory 18 18 Rate Blood Pressure 167/102 156/77 149/63 O2 Sat by Pulse 96 96 Oximetry 12/08/21 12:29 Temperature Pulse Rate 47 L Respiratory Rate Blood Pressure O2 Sat by Pulse Oximetry Constitutional: no acute distress (sedated), other (middle aged female with normal respiratory effort at rest) Eyes: non-icteric ENT: oropharynx moist, other (ETT 24 cm YAMILET) Neck: supple, no lymphadenopathy, no JVD Effort: normal Ascultation: Bilateral: diminished breath sounds, rhonchi Percussion: Bilateral: not dull Cardiovascular: regular rate and rhythm Gastrointestinal: normoactive bowel sounds, soft, non-tender, non-distended Integumentary: normal Extremities: no cyanosis, no edema, pulses normal, no ischemia or petechiae Neurologic: normal mental status, non-focal exam (grossly), pupils equal and round, motor strength normal and Psychiatric: mood appropriate, affect normal CBC and BMP: 12/06/21 06:40 12/08/21 04:04 ABG, PT/INR, D-dimer: ABG ABG pH 7.408 pH Units (7.350-7.450) 12/04/21 17:50 POC ABG pCO2 38.6 mmHg (32.0-48.0) 12/04/21 03:32 ABG pCO2 31.0 mm Hg 12/04/21 17:50 POC ABG pO2 93.7 mmHg (83-108) 12/04/21 03:32 ABG pO2 178.7 mm Hg (80.0-90.0) H 12/04/21 17:50 POC ABG HCO3 18.1 12/04/21 03:32 ABG O2 Saturation 99.2 % (95.0-99.0) H 12/04/21 17:50 PT/INR, D-dimer D-Dimer 1502.54 ng/mlDDU (0-234) H 12/03/21 09:49 Abnormal lab findings: Abnormal Labs 12/03/21 12/03/21 12/03/21 09:49 09:49 09:49 WBC 13.1 H RBC 5.40 H MCV MCH 24 L RDW 18.3 H Seg Neuts % (Manual) 90.0 H Lymphocytes % (Manual) 5.0 L Seg Neutrophils # Man 11.8 H Lymphocytes # (Manual) 0.7 L D-Dimer ABG pH ABG pO2 ABG HCO3 ABG O2 Saturation ABG Base Excess ABG Hemoglobin Chloride Carbon Dioxide 18 L BUN 29 H Creatinine 2.7 H Glucose 108 H Calcium Lactate Dehydrogenase 496 H NT-Pro-B Natriuret Pep Albumin Urine WBC (Auto) Urine Creatinine 12/03/21 12/03/21 12/03/21 09:49 13:26 14:55 WBC RBC MCV MCH RDW Seg Neuts % (Manual) Lymphocytes % (Manual) Seg Neutrophils # Man Lymphocytes # (Manual) D-Dimer 1502.54 H ABG pH 7.348 L ABG pO2 211.1 H ABG HCO3 ABG O2 Saturation 99.3 H ABG Base Excess -4.8 L ABG Hemoglobin 11.9 L Chloride Carbon Dioxide BUN Creatinine Glucose Calcium Lactate Dehydrogenase NT-Pro-B Natriuret Pep 10979 H Albumin Urine WBC (Auto) Urine Creatinine 12/04/21 12/04/21 12/04/21 03:32 04:00 04:00 WBC 13.3 H RBC MCV MCH 24 L RDW 18.6 H Seg Neuts % (Manual) 98.0 H Lymphocytes % (Manual) 2.0 L Seg Neutrophils # Man 13.0 H Lymphocytes # (Manual) 0.3 L D-Dimer ABG pH 7.289 L ABG pO2 ABG HCO3 ABG O2 Saturation ABG Base Excess ABG Hemoglobin Chloride 107.4 H Carbon Dioxide 20 L BUN 34 H Creatinine 3.0 H Glucose 119 H Calcium Lactate Dehydrogenase NT-Pro-B Natriuret Pep Albumin 3.4 L Urine WBC (Auto) Urine Creatinine 12/04/21 12/04/21 12/04/21 08:35 08:35 17:50 WBC RBC MCV MCH RDW Seg Neuts % (Manual) Lymphocytes % (Manual) Seg Neutrophils # Man Lymphocytes # (Manual) D-Dimer ABG pH ABG pO2 178.7 H ABG HCO3 19.1 L ABG O2 Saturation 99.2 H ABG Base Excess -4.7 L ABG Hemoglobin 11.1 L Chloride Carbon Dioxide BUN Creatinine Glucose Calcium Lactate Dehydrogenase NT-Pro-B Natriuret Pep Albumin Urine WBC (Auto) 43.0 H Urine Creatinine 208.5 H 12/05/21 12/05/21 12/06/21 05:30 05:30 06:40 WBC 17.0 H 11.9 H RBC MCV 78 L MCH 25 L 24 L RDW 18.9 H 18.8 H Seg Neuts % (Manual) Lymphocytes % (Manual) Seg Neutrophils # Man Lymphocytes # (Manual) D-Dimer ABG pH ABG pO2 ABG HCO3 ABG O2 Saturation ABG Base Excess ABG Hemoglobin Chloride Carbon Dioxide 18 L BUN 55 H Creatinine 3.6 H Glucose 140 H Calcium Lactate Dehydrogenase NT-Pro-B Natriuret Pep Albumin Urine WBC (Auto) Urine Creatinine 12/06/21 12/07/21 12/08/21 06:40 06:36 04:04 WBC RBC MCV MCH RDW Seg Neuts % (Manual) Lymphocytes % (Manual) Seg Neutrophils # Man Lymphocytes # (Manual) D-Dimer ABG pH ABG pO2 ABG HCO3 ABG O2 Saturation ABG Base Excess ABG Hemoglobin Chloride 107.5 H 108.2 H Carbon Dioxide 17 L 19 L 19 L BUN 47 H 37 H 35 H Creatinine 3.2 H 2.6 H 2.6 H Glucose 107 H Calcium 8.1 L Lactate Dehydrogenase NT-Pro-B Natriuret Pep Albumin Urine WBC (Auto) Urine Creatinine Allied health notes reviewed: nursing
[2021-12-08 15:02] VITALS: BP 162/99
--- NOTE | 2021-12-09 09:41 | XRay Report ---
CHEST 1 VIEW INDICATION / CLINICAL INFORMATION: follow up respiratory failure. COMPARISON: Chest x-ray 12/04/2021 FINDINGS: SUPPORT DEVICES: None. HEART / MEDIASTINUM: [id number] cardiomegaly demonstrated. LUNGS / PLEURA: No significant pulmonary or pleural abnormality. No pneumothorax. ADDITIONAL FINDINGS: No significant additional findings. IMPRESSION: 1. [id number] cardiomegaly. 2. No active process. 3. Interval removal of endotracheal tube and esophagogastric tube. Signer Name: Fabiano Lange II, MD Signed: 12/05/2021 1:00 AM Workstation Name: [id number]
--- NOTE | 2021-12-10 00:51 | Treadmill Report ---
DATE OF SERVICE: 12/08/2021 NUCLEAR STRESS TEST REFERRING PHYSICIAN: Hospitalist service. PROTOCOL: The patient was assessed in postoperative state and given 10 mCi of technetium at rest. The patient had rest imaging. The patient underwent Lexiscan stress test per standard protocol. At peak stress, the patient was given 26 mCi of technetium. Shortly thereafter, the patient had stress imaging. Raw imaging reveals mild GI artifact, no significant motion effect. SPECT imaging examined carefully in horizontal long axis, vertical long axis, and short axis views. There is normal radioisotope uptake in all port segments. No evidence of significant fixed or reversible perfusion defect suggestive of prior infarction or ischemia. Gated wall motion reveals mild global left ventricular hypokinesis. Calculated ejection fraction 41%. No TID. CONCLUSIONS: 1. Normal myocardial perfusion scan without evidence of active ischemia or prior infarction. 2. Mild global left ventricular hypokinesis, calculated ejection fraction of 41%. No TID. TID: [id number] RECEIPT: [id number] JUSTIN/CURTIS/ROSALBA
== END 2021-12-08 15:45 | disposition home or self-care (01) | DRG 871 ==
LOC: ED 08:29 → CC1 13:12 → 4A 12-05 18:33
PROVIDERS: ADMIT Internal Medicine; ATTEND Student in an Organized Health Care Education/Training Program
PROC: 06HM33Z Insertion of Infusion Device into Right Femoral Vein, Percutaneous Approach (ICD-10-PCS; principal; 2021-12-03)
PROC: 5A1945Z Respiratory Ventilation, 24-96 Consecutive Hours (ICD-10-PCS; 2021-12-03)
PROC: 0BH17EZ Insertion of Endotracheal Airway into Trachea, Via Natural or Artificial Opening (ICD-10-PCS; 2021-12-03)
PROC: 4A033R1 Measurement of Arterial Saturation, Peripheral, Percutaneous Approach (ICD-10-PCS; 2021-12-04)
DX: A41.9 Sepsis, unspecified organism (principal); J18.9 Pneumonia, unspecified organism; N17.0 Acute kidney failure with tubular necrosis; J96.01 Acute respiratory failure with hypoxia; G93.41 Metabolic encephalopathy; I16.1 Hypertensive emergency; I67.4 Hypertensive encephalopathy; F14.20 Cocaine dependence, uncomplicated; Z20.822 Contact with and (suspected) exposure to COVID-19; I42.9 Cardiomyopathy, unspecified; I16.9 Hypertensive crisis, unspecified; N18.4 Chronic kidney disease, stage 4 (severe); I13.0 Hypertensive heart and chronic kidney disease with heart failure and stage 1 through stage 4 chronic kidney disease, or unspecified chronic kidney disease; I50.9 Heart failure, unspecified; Z88.5 Allergy status to narcotic agent; Z82.49 Family history of ischemic heart disease and other diseases of the circulatory system
CPT/HCPCS: 36415; 36600; 71045; 71250; 74018; 76770; 78452; 80048; 80053; 80307; 81001; 82140; 82570; 82728; 82803; 82805; 82962; 83615; 83735; 83880; 84100; 84145; 84300; 84484; 85007; 85025; 85027; 85379; 86140; 86850; 86900; 86901; 87040; 87070; 87086; 87205; 93005; 93010; 93017; 93306; 94002; 94003; 94640; G0378; J3490; Q0162; A9502; C8929; J0330; J0360; J0456; J0696; J1170; J1200; J1644; J1940; J2250; J2405; J2704; J2785; J2920; J2930; J3010; J3486; J7030; U0003